=== PATIENT | male | born 1960 | race Caucasian/White ===

== ENCOUNTER 2019-11-18 12:39 | Emergency (ER) | payer MEDICAID ==
[2019-11-18] MEDS ORDERED: IPRATROPIUM/ALBUTEROL 0.5-2.5 MG/3 ML AMPUL NEB ONE ×2 (13:02→16:01)
[2019-11-18] MEDS ORDERED: PREDNISONE 20 MG TABLET PO ONE ×2 (13:02→16:38)
--- NOTE | 2019-11-18 13:27 | RADIOLOGY REPORT (SQ) ---
EXAM DESCRIPTION: CHEST SINGLE VIEW IMAGES COMPLETED DATE/TIME: 11/18/2019 1:12 pm REASON FOR STUDY: SOB COMPARISON: PA and lateral views of the chest from 10/21/2019. EXAM PARAMETERS: NUMBER OF VIEWS: One view. TECHNIQUE: An AP view of the chest was obtained. RADIATION DOSE: NA LIMITATIONS: None. FINDINGS: LUNGS AND PLEURA: No consolidation, pleural effusion or pneumothorax. MEDIASTINUM AND HILAR STRUCTURES: No mediastinal or hilar contour abnormality. HEART AND VASCULAR STRUCTURES: The cardiac silhouette and pulmonary vasculature are within normal morales its. BONES: No acute findings. HARDWARE: None in the chest. OTHER: No other finding. IMPRESSION: No acute cardiopulmonary process. TECHNICAL DOCUMENTATION: JOB ID: [id number] 2010 [employer]- All Rights Reserved Reading location - IP/workstation name: [email or web address]
[2019-11-18 13:28] LABS: ABSOLUTE BASOPHILS # (AUTO) 0.1 10^3/uL (0.0-0.2); ABSOLUTE EOSINOPHILS # (AUTO) 0.3 10^3/uL (0.0-0.6); ABSOLUTE LYMPHOCYTES (AUTO) 3.4 10^3/uL (0.5-4.7); ABSOLUTE MONOCYTES (AUTO) 1.4 10^3/uL (0.1-1.4); ABSOLUTE NEUT (AUTO) 11.6 10^3/uL (1.7-8.2); BASOPHILS % (AUTO) 0.7 % (0-2); EOSINOPHILS % (AUTO) 1.7 % (0-6); HEMATOCRIT 47.4 % (37.9-51.0); HEMOGLOBIN 15.8 g/dL (13.5-17.0); LYMPHOCYTES % (AUTO) 20.3 % (13-45); MEAN CORPUSCULAR HEMOGLOBIN 29.2 pg (27.0-33.4); MEAN CORPUSCULAR HGB CONC 33.4 g/dL (32.0-36.0); MEAN CORPUSCULAR VOLUME 88 fl (80-97); MONOCYTES % (AUTO) 8.5 % (3-13); PLATELET COUNT 512 10^3/uL (150-450); RED BLOOD COUNT 5.42 10^6/uL (4.35-5.55); RED CELL DISTRIBUTION WIDTH 14.2 % (11.5-14.0); SEGMENTED NEUTROPHILS % (AUTO) 68.8 % (42-78); TOTAL CELLS COUNTED % (AUTO) 100 %; WHITE BLOOD COUNT 16.9 10^3/uL (4.0-10.5)
[2019-11-18 13:29] LABS: ALBUMIN 4.2 g/dL (3.5-5.0); ALKALINE PHOSPHATASE 116 U/L (38-126); ANION GAP 14 (5-19); ASPARTATE AMINO TRANSFERASE 18 U/L (17-59); BILIRUBIN,DIRECT 0.3 mg/dL (0.0-0.4); BILIRUBIN,TOTAL 0.7 mg/dL (0.2-1.3); BLOOD UREA NITROGEN 15 mg/dL (7-20); CARBON DIOXIDE 22 mmol/L (22-30); CHLORIDE 99 mmol/L (98-107); CREATINE KINASE 54 U/L (55-170); GLUCOSE 89 mg/dL (75-110); POTASSIUM 4.8 mmol/L (3.6-5.0); TOTAL PROTEIN 7.3 g/dL (6.3-8.2)
[2019-11-18 13:40] LABS: CREATINE KINASE MB 0.95 ng/mL (<4.55)
[2019-11-18 13:41] LABS: TROPONIN I < 0.012 ng/mL
[2019-11-18] MEDS: ALBUTEROL SULFATE 0.083% NEB 2.5 MG/3 ML AMPUL NEB SCH (13:41)
[2019-11-18 14:10] LABS: VENOUS BLOOD BASE EXCESS -0.5 mmol/L; VENOUS BLOOD HCO3 24.2 mmol/L (20-32); VENOUS BLOOD PCO2 39.7 mmHg (35-63); VENOUS BLOOD PH 7.4 (7.30-7.42)
--- NOTE | 2019-11-18 14:14 | ER Document Report ---
Entered by SAMI STEINER SCRIBE 11/18/19 1354 Acting as scribe for:ROSA MURRAY MD ED Respiratory Problem - General Chief Complaint: Shortness Of Breath Stated Complaint: DIFFICULTY BREATHING Time Seen by Provider: 11/18/19 13:04 Primary Care Provider: FREDERICK ROSARIO FNP-C [Primary Care Provider] - 11/21/19 Mode of Arrival: Ambulatory Information source: Patient Notes: This 59-year-old male patient in pain management taking Dilaudid every 4 hours for chronic back pain presents to the emergency department today with complaints of shortness of breath for the last month which became acutely worse at 2:00 AM. Patient was recently diagnosed with COPD. He saw a pulmonology medicine doctor about 2 weeks ago follow-up and was given a nebulizer with albuterol to use, and 2 inhalers. 1 of the inhalers is a steroid that he uses twice daily. He does not know the names of the 2 inhaler medications. He was prescribed Zithromax and a 6-day Medrol Dosepak on 11/08/2019. He reports that his throat feels scratchy from the cough. He states that he does not think the inhalers or the nebulizer are really helping any. He states that the breathing treatment the EMS gave him in route helped more than the medications he has at home. He would have received a DuoNeb from EMS. He was also given fentanyl 100 mcg IV and Solu-Medrol 125 mg IV. TRAVEL OUTSIDE OF THE [place] IN LAST 30 DAYS: No - Related Data Allergies/Adverse Reactions: atorvastatin [From Lipitor] Allergy (Verified 11/18/19 15:41) "muslce and joint pain" Past Medical History - General Information source: Patient - Social History Smoking Status: Current Every Day Smoker Cigarette use (# per day): Yes Frequency of alcohol use: None Drug Abuse: None Lives with: Family Family History: Reviewed & Not Pertinent - Past Medical History Cardiac Medical History: Reports: Hx Atrial Fibrillation, Hx Congestive Heart Failure, Hx Coronary Artery Disease, Hx Heart Attack - x5, Hx Hypercholesterolemia, Hx Hypertension - hx of, Hx Heart Murmur Pulmonary Medical History: Reports: Hx COPD Neurological Medical History: Reports: Hx Cerebrovascular Accident - "during surgery" pt states "no residual" GI Medical History: Reports: Hx Diverticulitis, Hx Gastroesophageal Reflux Disease Past Surgical History: Reports: Hx Bowel Surgery, Hx Cardiac Catheterization, Hx Cardiac Surgery - PTCA 07/2012, Hx Coronary Stent - x4, Hx Orthopedic Surgery - Lumbar surgery x2 - Immunizations Immunizations up to date: Yes Hx Diphtheria, Pertussis, Tetanus Vaccination: Yes Review of Systems - Review of Systems Constitutional: No symptoms reported EENT: No symptoms reported Cardiovascular: No symptoms reported Respiratory: See HPI, Cough, Short of breath, Wheezing Gastrointestinal: No symptoms reported Genitourinary: No symptoms reported Male Genitourinary: No symptoms reported Musculoskeletal: No symptoms reported Skin: No symptoms reported Hematologic/Lymphatic: No symptoms reported Neurological/Psychological: No symptoms reported -: Yes All other systems reviewed and negative Physical Exam - Vital signs Vitals: Resp Pulse Ox 23 H 96 11/18/19 12:43 11/18/19 12:43 - Notes Notes: Physical Exam: General: Alert, appears well. HEENT: Normocephalic. Atraumatic. PERRL. Extraocular movements intact. Orop harynx clear. Neck: Supple. Non-tender. Respiratory: Mild respiratory distress. Inspiratory and expiratory wheezing bilaterally. Rhonchi. Cardiovascular: Regular rate and rhythm. Abdominal: Normal Inspection. Non-tender. No distension. Normal Bowel Sounds. Back: No gross abnormalities. Extremities: Moves all four extremities. Upper extremities: Normal inspection. Normal ROM. Lower extremities: Normal inspection. No edema. Normal ROM. Neurological: Normal cognition. AAOx4. Normal speech. Psychological: Normal affect. Normal Mood. Skin: Warm. Dry. Normal color. Course - Re-evaluation Re-evalutation: 11/18/19 16:39 The patient was sleeping with a pulse ox of 94% on room air. When awakened for reevaluation, he states that his breathing feels much better and is closer to normal at this time. 11/18/19 16:51 The charge nurse just informed me that Vitaly Stover the dialysis social worker called down and stated the patient needed a prescription for a nebulizer. Apparently when he got his prescription for his respiratory medications, he was not given a prescription for nebulizer and has been borrowing someone else's machine. I will add a prescription for a nebulizer. 11/18/19 16:56 Due to the plethora of choices for a nebulizer machine in the [facility] database, and the fact that I did not want to get multiple phone calls over the next week because the correct machine was not the one ordered, I am going to hand write the prescription for the nebulizer. - Vital Signs Vital signs: Temp Pulse Resp BP Pulse Ox 98.7 F 106 H 17 117/67 93 11/18/19 13:27 11/18/19 13:27 11/18/19 15:01 11/18/19 15:01 11/18/19 15:01 - Laboratory Result Diagrams: 11/18/19 11:58 11/18/19 11:58 Laboratory results interpreted by me: 11/18/19 11/18/19 11/18/19 11:55 11:58 11:58 WBC 16.9 H RDW 14.2 H Plt Count 512 H Absolute Neuts (auto) 11.6 H Sodium 135.0 L Magnesium 2.4 H Creatine Kinase 54 L - Diagnostic Test Radiology reviewed: Image reviewed, Reports reviewed - Chest x-ray does not show acute process. - EKG Interpretation by Me EKG shows normal: Sinus rhythm, [place], QRS Complexes, ST-T Waves. abnormal: Intervals - Short ID interval with accelerated AV conduction Rate: Normal - 98 Rhythm: NSR Discharge - Discharge Clinical Impression: COPD with exacerbation Condition: Stable Disposition: HOME, SELF-CARE Additional Instructions: Your COPD likely got worse as you came off of the steroid Dosepak you were put on last week. You report that your breathing seems to improve quite a bit with the breathing treatment the EMS gave you. That was albuterol with Atrovent mixed and. You will receive a prescription for the Atrovent to mix with your albuterol to use every 6 hours. You will also receive a prescription for prednisone, you will start that tomorrow as you have had today's dose here in the emergency room. You should drink plenty of fluids, as your urine seem to be quite concentrated. Make a list of all of your medications with the names and the doses and the frequency and put that in your cell phone so you will have it in the event you have to return to the emergency room in the future. Follow-up with your primary care provider on Thursday to review your visit today and to see how your breathing is doing over the weekend. RETURN TO THE EMERGENCY ROOM IF ANY NEW OR WORSENING SYMPTOMS. Prescriptions: Ipratropium [place] [Atrovent 0.02% Neb 0.5 mg/2.5 ml Ampul] 0.5 mg NEB Q6 PRN #50 vial.neb PRN Reason: Prednisone [Deltasone 10 mg Tablet] 10 mg PO ASDIR PRN #21 tablet PRN Reason: Referrals: FREDEIRCK ROSARIO, [facility] POURER-C [Primary Care Provider] - 11/21/19 I personally performed the services described in the documentation, reviewed and edited the documentation which was dictated to the scribe in my presence, and it accurately records my words and actions.
[2019-11-18] MEDS ORDERED: ALBUTEROL SULFATE 0.083% NEB 2.5 MG/3 ML AMPUL NEB ONE (14:23)
[2019-11-18] MEDS: MAGNESIUM SULFATE/D5W 1 GM/100 ML RTUPB IV SCH ×2 (14:38→15:46)
[2019-11-18 17:08] VITALS: BP 127/77
--- NOTE | 2019-11-19 18:59 | EKG REPORT ---
SEVERITY:- BORDERLINE ECG - SINUS RHYTHM SHORT IL INTERVAL, ACCELERATED AV CONDUCTION : Confirmed by: Christine Sullivan MD 19-Nov-2019 18:58:11
== END 2019-11-18 17:09 | disposition home or self-care (01) ==
LOC: ER 12:39
DX: J44.1 Chronic obstructive pulmonary disease with (acute) exacerbation (principal); R06.02 Shortness of breath; R05 Cough; R06.2 Wheezing; M54.9 Dorsalgia, unspecified; G89.29 Other chronic pain; Z79.899 Other long term (current) drug therapy; Z79.51 Long term (current) use of inhaled steroids; Z88.8 Allergy status to other drugs, medicaments and biological substances; F17.210 Nicotine dependence, cigarettes, uncomplicated; I48.91 Unspecified atrial fibrillation; I50.9 Heart failure, unspecified; I25.10 Atherosclerotic heart disease of native coronary artery without angina pectoris; I11.0 Hypertensive heart disease with heart failure
CPT/HCPCS: 93005; 94640 ×2; 99285; 96365; 96367; 36415; 82553; 82550; 83735; 85025; 80053; 84484; 82803; 71045; 93010; J3475; J7512; J7613

== ENCOUNTER 2019-11-29 02:04 | Inpatient (IN) | payer MEDICAID ==
[2019-11-29] MEDS ORDERED: METHYLPREDNISOLONE INJ 125 MG/2 ML SDV IV ONE (02:17)
[2019-11-29] MEDS ORDERED: IPRATROPIUM/ALBUTEROL 0.5-2.5 MG/3 ML AMPUL NEB ONE ×2 (02:17→02:21)
--- NOTE | 2019-11-29 02:26 | ER Document Report ---
ED Respiratory Problem - General Chief Complaint: Breathing Difficulty Stated Complaint: DIFFICULTY BREATHING Time Seen by Provider: 11/29/19 02:07 Notes: Patient is a 59-year-old male who comes emergency department for chief complaint of increased difficulty breathing, wheezing, and cough for the past week. Patient states he started having a lot of trouble breathing tonight, EMS states he was initially 84% on room air. Patient was placed on nonrebreather and brought to the emergency department. He has a history of COPD, he uses home ne bulizer treatments, he continues to smoke. On my evaluation patient was switched from nonrebreather to nasal cannula. Patient also tells me that he has "raw throat" and he can feel deep down his throat bleeding which he will then cough up intermittently. He denies painful or difficulty swallowing. He is on Plavix. He denies fever or sick contacts. Past medical history of atrial fibrillation, FL CAD with FL, stents, and CABG, hypertension, hyperlipidemia, and the COPD. TRAVEL OUTSIDE OF THE [place] IN LAST 30 DAYS: No - Related Data Allergies/Adverse Reactions: atorvastatin [From Lipitor] Allergy (Verified 11/18/19 15:41) "muslce and joint pain" Past Medical History - General Information source: Patient - Social History Smoking Status: Current Every Day Smoker Drug Abuse: None Lives with: Alone Family History: Reviewed & Not Pertinent - Past Medical History Cardiac Medical History: Reports: Hx Atrial Fibrillation, Hx Congestive Heart Failure, Hx Coronary Artery Disease, Hx Heart Attack - x5, Hx Hypercholesterolemia, Hx Hypertension - hx of, Hx Heart Murmur Denies: Hx Peripheral Vascular Disease Pulmonary Medical History: Reports: Hx COPD Denies: Hx Asthma, Hx Bronchitis, Hx Pneumonia Neurological Medical History: Reports: Hx Cerebrovascular Accident - "during surgery" pt states "no residual". Denies: Hx Seizures GI Medical History: Reports: Hx Diverticulitis, Hx Gastroesophageal Reflux Disease. Denies: Hx Crohn's Disease, Hx Hiatal Hernia, Hx Irritable Bowel, Hx Liver Failure, Hx Pancreatitis, Hx Ulcer Musculoskeletal Medical History: Denies Hx Arthritis, Denies Hx Fibromyalgia, Denies Hx Muscular Dystrophy Psychiatric Medical History: Denies: Hx Depression Traumatic Medical History: Denies: Hx Fractures Past Surgical History: Reports: Hx Bowel Surgery, Hx Cardiac Catheterization, Hx Cardiac Surgery - PTCA 07/2012, Hx Coronary Stent - x4, Hx Orthopedic Surgery - Lumbar surgery x2. Denies: Hx Appendectomy, Hx Cholecystectomy, Hx Colostomy, Hx Coronary Artery Bypass Graft, Hx Gastric Bypass Surgery, Hx Herniorrhaphy, Hx Pacemaker, Hx Tonsillectomy - Immunizations Immunizations up to date: Yes Hx Diphtheria, Pertussis, Tetanus Vaccination: Yes Review of Systems - Review of Systems Constitutional: No symptoms reported EENT: No symptoms reported Cardiovascular: See HPI Respiratory: See HPI Gastrointestinal: No symptoms reported Genitourinary: No symptoms reported Male Genitourinary: No symptoms reported Musculoskeletal: No symptoms reported Skin: No symptoms reported Hematologic/Lymphatic: No symptoms reported Neurological/Psychological: No symptoms reported Physical Exam - Vital signs Vitals: Pulse Ox 100 11/29/19 02:05 - Notes Notes: GENERAL: Patient is thin, disheveled, somewhat chronically ill-appearing HEAD: Normocephalic, atraumatic. EYES: Pupils equal, round, and reactive to light. Extraocular movements intact. ENT: Oral mucosa moist, tongue midline. There is a small amount of blood noted in the posterior pharynx but no active bleeding, patent airway, otherwise unre markable. Airway patent. Nares patent, sinuses non-tender, ear canals unremarkable, TM's intact. NECK: Full range of motion. Supple. Trachea midline. No lymphadenopathy. LUNGS: Expiratory wheezes throughout, decreased breath sounds bilaterally, scattered rhonchi throughout. Mild tachypnea. Speaks in full sentences. HEART: Regular rate and rhythm. No murmur ABDOMEN: Soft, non-tender. Non-distended. EXTREMITIES: Moves all 4 extremities spontaneously. No edema, normal radial and dorsalis pedis pulses bilaterally. No cyanosis. BACK: no cervical, thoracic, lumbar midline tenderness. No saddle anesthesia, normal distal neurovascular exam. Moves all extremities in full range of motion. NEUROLOGICAL: Alert and oriented x3. Normal speech. Cranial nerves II through XII grossly intact. Strength 5/5 in all extremities. PSYCH: Normal affect, normal mood. SKIN: Warm, dry, normal turgor. No rashes or lesions noted. Course - Re-evaluation Re-evalutation: On initial evaluation patient with expiratory wheezes, borderline tachypnea, and he was switched from nonrebreather to nasal cannula. Without the nasal cannula patient desaturated to about 90%. Patient is alert and oriented. No fever. Work-up pending. Giving duo nebs and Solu-Medrol for COPD exacerbation. Venous blood gas nonspecific, CBC shows leukocytosis with elevation of neutrophils but no bandemia. Chemistry nonspecific. Troponin and BNP are unremarkable. Chest x-ray showing possible left upper lobe pneumonia. Patient will be started on Rocephin and azithromycin for community-acquired pneumonia, culture sent. Because patient had blood in the posterior pharynx and an episode of hemoptysis that I noted CT of the neck and CTA were both performed to evaluate the hemoptysis. However patient did not have any additional episodes of hemoptysis despite additional coughing episodes. He is not hypotensive or in distress on reevaluation, he states he feels much better, wheezing significantly improved, respiratory rate improved. CTA showing probable bronchogenic carcinoma, pneumonia which cannot be distinguished between bacterial or COVID-19. 11/29/19 06:03 I called and spoke with Dr. Ford, oncology. His recommendation is admission to hospital service, he will consult. He states patient would need to be treated and tested for COVID-19 pneumonia before bronchoscopy could be considered and that this can be arranged afterwards. I discussed with patient in detail. Patient states understanding, states agreement with admission. 11/29/19 06:[address] Gamble, hospitalist, patient accepted to [facility] full admission. - Vital Signs Vital signs: Temp Pulse Resp BP Pulse Ox 98.7 F 16 115/78 94 11/29/19 02:09 11/29/19 04:01 11/29/19 04:00 11/29/19 05:00 - Laboratory Result Diagrams: 11/29/19 02:41 11/29/19 02:41 Laboratory results interpreted by me: 11/29/19 11/29/19 11/29/19 02:41 02:41 02:41 WBC 14.3 H RDW 14.5 H Lymph % (Auto) 9.3 L Absolute Neuts (auto) 11.8 H Seg Neutrophils % 82.5 H VBG pCO2 33.2 L Sodium 129.5 L Chloride 97 L Glucose 113 H - EKG Interpretation by Me Additional EKG results interpreted by me: EKG shows sinus rhythm at a rate of 110, QTc of 444, normal axis, no overt T wave inversions or ST segment changes in consecutive leads. Artifact present almost throughout. Discharge - Discharge Clinical Impression: COPD exacerbation, Hemoptysis, Lung mass, Hypoxia Pneumonia Qualifiers: Pneumonia type: due to unspecified organism Laterality: unspecified laterality Lung location: unspecified part of lung Qualified Code(s): J18.9 - Pneumonia, unspecified organism Condition: Stable Disposition: ADMITTED INPATIENT Admitting Provider: Mavis (Hospitalist) Unit Admitted: [facility]
[2019-11-29 02:58] LABS: ABSOLUTE BASOPHILS # (AUTO) 0.1 10^3/uL (0.0-0.2); ABSOLUTE EOSINOPHILS # (AUTO) 0.2 10^3/uL (0.0-0.6); ABSOLUTE LYMPHOCYTES (AUTO) 1.3 10^3/uL (0.5-4.7); ABSOLUTE MONOCYTES (AUTO) 0.9 10^3/uL (0.1-1.4); ABSOLUTE NEUT (AUTO) 11.8 10^3/uL (1.7-8.2); BASOPHILS % (AUTO) 0.6 % (0-2); EOSINOPHILS % (AUTO) 1.3 % (0-6); HEMATOCRIT 41.3 % (37.9-51.0); HEMOGLOBIN 14.4 g/dL (13.5-17.0); LYMPHOCYTES % (AUTO) 9.3 % (13-45); MEAN CORPUSCULAR HEMOGLOBIN 29.9 pg (27.0-33.4); MEAN CORPUSCULAR VOLUME 85 fl (80-97); MONOCYTES % (AUTO) 6.3 % (3-13); PLATELET COUNT 315 10^3/uL (150-450); RED BLOOD COUNT 4.84 10^6/uL (4.35-5.55); RED CELL DISTRIBUTION WIDTH 14.5 % (11.5-14.0); SEGMENTED NEUTROPHILS % (AUTO) 82.5 % (42-78); TOTAL CELLS COUNTED % (AUTO) 100 %; WHITE BLOOD COUNT 14.3 10^3/uL (4.0-10.5)
[2019-11-29 03:00] LABS: VENOUS BLOOD HCO3 20.7 mmol/L (20-32); VENOUS BLOOD PCO2 33.2 mmHg (35-63); VENOUS BLOOD PH 7.41 (7.30-7.42)
[2019-11-29] MEDS ORDERED: MORPHINE SULFATE 10 MG/ML INJ IV ONE (03:06)
[2019-11-29 03:14] LABS: INTERNATIONAL RATION (INR) 1.03; PROTHROMBIN TIME 13.7 SEC (11.4-15.4)
[2019-11-29 03:15] LABS: PARTIAL THROMBOPLASTIN TIME 29.2 SEC (23.5-35.8)
[2019-11-29 03:18] LABS: ALBUMIN 3.6 g/dL (3.5-5.0); ALKALINE PHOSPHATASE 101 U/L (38-126); ANION GAP 11 (5-19); ASPARTATE AMINO TRANSFERASE 22 U/L (17-59); BILIRUBIN,DIRECT 0.3 mg/dL (0.0-0.4); BILIRUBIN,TOTAL 0.5 mg/dL (0.2-1.3); BLOOD UREA NITROGEN 15 mg/dL (7-20); CALCIUM 9.4 mg/dL (8.4-10.2); CARBON DIOXIDE 22 mmol/L (22-30); CHLORIDE 97 mmol/L (98-107); GLUCOSE 113 mg/dL (75-110); POTASSIUM 4.6 mmol/L (3.6-5.0); TOTAL PROTEIN 6.6 g/dL (6.3-8.2)
--- NOTE | 2019-11-29 03:47 | RADIOLOGY REPORT (SQ) ---
CLINICAL INDICATION: shortness of breath, hypoxia. TECHNIQUE: A single portable AP view was obtained of the chest at 0325 hours. COMPARISON: November 18, 2019. FINDINGS: The cardiomediastinal silhouette is normal. The lungs demonstrate chronic changes. These are similar to prior. Mariah fullness, similar to prior. No evidence of effusion or pneumothorax. The visualized bones are unremarkable. Ill-defined patchy opacity left upper lobe IMPRESSION: Ill-defined patchy airspace disease left upper lobe.
[2019-11-29] MEDS ORDERED: AZITHROMYCIN INJ 500 MG VIAL IV ONE (03:52)
[2019-11-29] MEDS ORDERED: CEFTRIAXONE 1 GM/D5W RTU 1 GM/50 ML RTUPB IV ONE (03:52)
--- NOTE | 2019-11-29 04:57 | RADIOLOGY REPORT (SQ) ---
CT angiogram chest with contrast and CT neck with contrast on 11/29/2019 at 4:11 AM CLINICAL INDICATION: Hypoxia, hemoptysis, throat fullness, question mass or bleeding from throat TECHNIQUE: Multiple axial images are obtained throughout the neck and chest following the administration of IV contrast. 100 mL of Omnipaque 350 contrast was administered intravenously. Computer generated 3D reconstructions/MIPS were performed of the chest. This exam was performed according to our departmental dose-optimization program, which includes automated exposure control, adjustment of the mA and/or kV according to patient size and/or use of iterative reconstruction technique. Total DLP is 1225.33 mGy*cm. COMPARISON: None FINDINGS: NECK: The epiglottis and airway is unremarkable. There is no prevertebral soft tissue swelling. There is no adenopathy in the neck. No mucosal lesion is noted. No neck mass or fluid collection is noted. Degenerative changes are noted in the cervical spine. No acute bony abnormality is noted. CHEST: There is central left upper lobe mass that is confluent with left hilar and mediastinal soft tissue density consistent with primary bronchogenic carcinoma. There is also confluent adenopathy surrounding the artur and right mainstem bronchus and involving the subcarinal region consistent with tumor involvement. This appears nearly confluent with the left hilar abnormality. This raises the question of a small cell lung cancer as the primary malignancy. At one level confluent subcarinal mass/adenopathy measures approximately 6.1 x 5.7 cm. Soft tissue tumor surrounds and narrows the right upper lobe bronchus and the bronchus intermedius and also the central right middle and right lower bronchi. There are some tree-in-bud nodular opacities in the right lower lobe consistent with either aspiration or an infectious bronchiolitis. There is some crazy paving in the left lower lobe. This is likely postinfectious in nature and raises the question of viral etiology. There are some nodular opacities in the left upper lung that name be infectious or malignant. Emphysematous changes of the lungs are noted. The central soft tissue tumor surrounds and somewhat narrows the right main pulmonary artery and partially surrounds the left pulmonary artery without narrowing the left pulmonary artery. There are no filling defects within the pulmonary arteries to suggest pulmonary embolus. Tumor significantly narrows the right upper lobe pulmonary arterial tree. There is no pleural or pericardial effusion. Limited visualized upper abdomen is unremarkable. No acute bony abnormality is noted. IMPRESSION: 1. 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 For tissue diagnosis bronchoscopy could likely obtain tissue on the right. 2. No evidence of pulmonary embolus. 3. Evidence of some likely aspiration in the medial right lower lobe. 4. Evidence of likely infectious etiology in the left lung and this could be viral in nature. Imaging features can be seen with viral or COVID 19 pneumonia, though are nonspecific and can occur with a variety of infectious and noninfectious processes. [PneInd] 5. No acute abnormality in the neck. 6. CHUCKIE Kumari in the emergency department, was made aware of impression one and four by myself by phone on 11/29/2019 at 4:55 AM eastern time.
--- NOTE | 2019-11-29 08:25 | PDOC CONSULTATION ---
Consultation Consult Date: 11/29/19 Attending physician:: NAI RECINOS Provider Consulted: MARILEE VILLAGRAN Consult reason:: L central lung mass History of Present Illness Admission Date/PCP: 11/29/19 06:46 JAMIE JIMENEZ Patient complains of: SOB/GUAMAN/Cough History of Present Illness: Because of COVID restrictions, this is a telemedicine consultation, the patient was appropriately counseled on what this consultation entails and what follow-up will occur. AGAPITO MANZO is a 59 year old male with newly diagnosed lung mass. He presents with 1 to 2-week history of increasing shortness of breath, dyspnea on exertion, he has known history of COPD, also strong smoking history greater than [id number], actively smoking prior to coming in. Upon presentation, patient had CTA of the chest which indicates large left central/left upper lobe mass, but also areas in the left lung concerning for pneumonia, because of the appear ance COVID was considered and he is being ruled out for this. He is having some hemoptysis as well. Past Medical History Cardiac Medical History: Reports: Atrial Fibrillation, Congestive Heart Failure, Coronary Artery Disease, Myocardial Infarction - x5, Hyperlipidema, Hypertension - hx of, Heart Murmur Denies: Peripheral Vascular Disease Pulmonary Medical History: Reports: Chronic Obstructive Pulmonary Disease (COPD) Denies: Asthma, Bronchitis, Pneumonia Neurological Medical History: Denies: Seizures GI Medical History: Reports: Diverticulitis, Gastroesophageal Reflux Disease Denies: Crohn's Disease, Hiatal Hernia Musculoskeltal Medical History: Denies: Arthritis, Fibromyalgia Psychiatric Medical History: Denies: Depression Hematology: Denies: Anemia Past Surgical History Past Surgical History: Reports: Cardiac Catheterization, Coronary Stent - x4, Orthopedic Surgery - Lumbar surgery x2 Denies: Appendectomy, Cholecystectomy, Colostomy, Coronary Artery Bypass Graft, Gastric Bypass Surgery, Herniorrhaphy, Pacemaker, Tonsillectomy Social History Information Source: Patient Lives with: Alone Smoking Status: Current Every Day Smoker Frequency of Alcohol Use: None Hx Recreational Drug Use: No Drugs: None Hx Prescription Drug Abuse: No - Advance Directive Resuscitation Status: Full Code Family History Family History: Reviewed & Not Pertinent Parental Family History Reviewed: Yes Children Family History Reviewed: Yes Sibling(s) Family History Reviewed.: Yes Medication/Allergy Home Medications: Nitroglycerin [Nitrostat 0.4 mg (150 Gr) Tabs 25/Bottle] 1 tab SL Q5MP PRN 08/23/12 Oxycodone HCl [Oxy-Ir 5 mg Tablet] 15 mg PO Q4 PRN 08/14/15 Clopidogrel Bisulfate [Plavix 75 mg Tablet] 1 tab PO DAILY 11/01/15 Oxycodone HCl/Acetaminophen [Percocet 5-325 mg Tablet] 1 - 2 tab PO ASDIR PRN #25 tablet 11/05/15 Ipratropium [place] [Atrovent 0.02% Neb 0.5 mg/2.5 ml Ampul] 0.5 mg NEB Q6 PRN #50 vial.neb 11/18/19 Prednisone [Deltasone 10 mg Tablet] 10 mg PO ASDIR PRN #21 tablet 11/18/19 Allergies/Adverse Reactions: atorvastatin [From Lipitor] Allergy (Verified 11/18/19 15:41) "muslce and joint pain" Review of Systems Constitutional: ABSENT: chills, fever(s), headache(s), weight gain, weight loss Eyes: ABSENT: visual disturbances Ears: ABSENT: hearing changes Cardiovascular: ABSENT: chest pain, dyspnea on exertion, edema, orthropnea, palpitations Respiratory: ABSENT: cough, hemoptysis Gastrointestinal: ABSENT: abdominal pain, constipation, diarrhea, hematemesis, hematochezia, nausea, vomiting Genitourinary: ABSENT: dysuria, hematuria Musculoskeletal: ABSENT: joint swelling Integumentary: ABSENT: rash, wounds Neurological: ABSENT: abnormal gait, abnormal speech, confusion, dizziness, focal weakness, syncope Psychiatric: ABSENT: anxiety, depression, homidical ideation, suicidal ideation Endocrine: ABSENT: cold intolerance, heat intolerance, polydipsia, polyuria Hematologic/Lymphatic: ABSENT: easy bleeding, easy bruising Physical Exam Vital Signs: Temp Pulse Resp BP Pulse Ox 98.7 F 12 133/95 H 96 11/29/19 02:09 11/29/19 07:01 11/29/19 07:01 11/29/19 07:01 Intake & Output 11/28/19 11/29/19 11/30/19 06:59 06:59 06:59 Intake Total 50 Balance 50 Weight 81.647 kg General appearance: PRESENT: no acute distress, well-developed, well-nourished Head exam: PRESENT: atraumatic, normocephalic Eye exam: PRESENT: conjunctiva pink, EOMI, PERRLA. ABSENT: scleral icterus Ear exam: PRESENT: normal external ear exam Mouth exam: PRESENT: moist, tongue midline Neck exam: ABSENT: carotid bruit, JVD, lymphadenopathy, thyromegaly Respiratory exam: PRESENT: clear to auscultation mike. ABSENT: rales, rhonchi, wheezes Cardiovascular exam: PRESENT: RRR. ABSENT: diastolic murmur, rubs, systolic murmur Pulses: PRESENT: normal dorsalis pedis pul Vascular exam: PRESENT: normal capillary refill GI/Abdominal exam: PRESENT: normal bowel sounds, soft. ABSENT: distended, guarding, mass, organolmegaly, rebound, tenderness Rectal exam: PRESENT: deferred Extremities exam: PRESENT: full ROM. ABSENT: calf tenderness, clubbing, pedal edema Neurological exam: PRESENT: alert, awake, oriented to person, oriented to place, oriented to time, oriented to situation, CN II-XII grossly intact. ABSENT: motor sensory deficit Psychiatric exam: PRESENT: appropriate affect, normal mood. ABSENT: homicidal ideation, suicidal ideation Skin exam: PRESENT: dry, intact, warm. ABSENT: cyanosis, rash Results Laboratory Results: 11/29/19 02:41 11/29/19 02:41 11/29/19 11/29/19 11/29/19 02:41 02:41 02:41 WBC 14.3 H RBC 4.84 Hgb 14.4 Hct 41.3 MCV 85 MCH 29.9 MCHC 35.0 RDW 14.5 H Plt Count 315 Seg Neutrophils % 82.5 H VBG pH 7.41 VBG pCO2 33.2 L VBG HCO3 20.7 VBG Base Excess -3.0 Sodium 129.5 L Potassium 4.6 Chloride 97 L Carbon Dioxide 22 Anion Gap 11 BUN 15 Creatinine 0.75 Est GFR ( Amer) > 60 Glucose 113 H Calcium 9.4 Total Bilirubin 0.5 AST 22 Alkaline Phosphatase 101 Total Protein 6.6 Albumin 3.6 11/29/19 02:41 Troponin I 0.015 Impressions: Chest X-Ray 11/29/19 02:17 IMPRESSION: Ill-defined patchy airspace disease left upper lobe. Soft Tissue Neck CT 11/29/19 03:49 IMPRESSION: 1. 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 For tissue diagnosis bronchoscopy could likely obtain tissue on the right. 2. No evidence of pulmonary embolus. 3. Evidence of some likely aspiration in the medial right lower lobe. 4. Evidence of likely infectious etiology in the left lung and this could be viral in nature. Imaging features can be seen with viral or COVID 19 pneumonia, though are nonspecific and can occur with a variety of infectious and noninfectious processes. [PneInd] 5. No acute abnormality in the neck. 6. CHUCKIE Kumari in the emergency department, was made aware of impression one and four by myself by phone on 11/29/2019 at 4:55 AM eastern time. Chest/Abdomen CTA 11/29/19 03:50 IMPRESSION: 1. 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 For tissue diagnosis bronchoscopy could likely obtain tissue on the right. 2. No evidence of pulmonary embolus. 3. Evidence of some likely aspiration in the medial right lower lobe. 4. Evidence of likely infectious etiology in the left lung and this could be viral in nature. Imaging features can be seen with viral or COVID 19 pneumonia, though are nonspecific and can occur with a variety of infectious and noninfectious processes. [PneInd] 5. No acute abnormality in the neck. 6. CHUCKEI Kumari in the emergency department, was made aware of impression one and four by myself by phone on 11/29/2019 at 4:55 AM eastern time. Status: Image reviewed by me Assessment & Plan - Diagnosis (1) Lung mass Is this a current diagnosis for this admission?: Yes Plan: Concerning for primary lung cancer, I have discussed with the patient and appropriately counseled him that first COVID needs to be ruled out. Once that is ruled out and patient get several days of IV antibiotics, and clinically he is stable, he should discharge home and we will see him as an outpatient and set up outpatient bronchoscopy in [place]. He is agreeable to this approach. We will follow while admitted. - Time Time Spent: Greater than 70 Minutes - Inpatient Certification Based on my medical assessment, after consideration of the patient's comorbidities, presenting symptoms, or acuity I expect that the services needed warrant INPATIENT care.: Yes I certify that my determination is in accordance with my understanding of Medicare's requirements for reasonable and necessary INPATIENT services [42 CFR 412.3e].: Yes Medical Necessity: Need for Nebulizer Therapy and Monitoring of Response, Need for IV Antibiotics, Risk of Complication if Not Cared For in Hospital
--- NOTE | 2019-11-29 08:48 | EKG REPORT ---
SEVERITY:- ABNORMAL ECG - SINUS TACHYCARDIA BASELINE ARTEFACT : Confirmed by: Zeus Zambrano MD 29-Nov-2019 08:47:36
[2019-11-29] MEDS ORDERED: ACETAMINOPHEN 325 MG TABLET PO PRN (09:08)
[2019-11-29] MEDS ORDERED: ONDANSETRON HCL INJ/PF 4 MG/2 ML SDV IV PRN (09:08)
[2019-11-29] MEDS ORDERED: NICOTINE 21 MG/24 HR PATCH.TD24 TD PRN (09:25)
--- NOTE | 2019-11-29 09:25 | PDOC H&P ---
History of Present Illness Admission Date/PCP: 11/29/19 06:46 FREDERICK ROSARIO, EMETERIO-C Patient complains of: Shortness of breath for 1 week History of Present Illness: AGAPITO MANZO is a 59 year old male with history of COPD, chronic smoker, history of heart attack with multiple stents came to the emergency room with complaint of increasing shortness of breath. Work-up in the emergency room indicates left-sided pneumonia and also possible left upper middle lobe carcinoma. Consultation with oncology was done. Coronavirus testing is pending. Patient denies any fever denies any chills. Complains of dry cough. Wants to be a full code agreed to stay in the hospital for further management. Past Medical History Cardiac Medical History: Reports: Atrial Fibrillation, Congestive Heart Failure, Coronary Artery Disease, Myocardial Infarction - x5, Hyperlipidema, Hypertension - hx of, Heart Murmur Denies: Peripheral Vascular Disease Pulmonary Medical History: Reports: Chronic Obstructive Pulmonary Disease (COPD) Denies: Asthma, Bronchitis, Pneumonia Neurological Medical History: Denies: Seizures GI Medical History: Reports: Diverticulitis, Gastroesophageal Reflux Disease Denies: Crohn's Disease, Hiatal Hernia Musculoskeltal Medical History: Denies: Arthritis, Fibromyalgia Psychiatric Medical History: Denies: Depression Hematology: Denies: Anemia Past Surgical History Past Surgical History: Reports: Cardiac Catheterization, Coronary Stent - x4, Orthopedic Surgery - Lumbar surgery x2 Denies: Appendectomy, Cholecystectomy, Colostomy, Coronary Artery Bypass Graft, Gastric Bypass Surgery, Herniorrhaphy, Pacemaker, Tonsillectomy Social History Information Source: Patient Lives with: Alone Smoking Status: Current Every Day Smoker Frequency of Alcohol Use: None Hx Recreational Drug Use: No Drugs: None Hx Prescription Drug Abuse: No Family History Family History: Reviewed & Not Pertinent Parental Family History Reviewed: Yes Children Family History Reviewed: Yes Sibling(s) Family History Reviewed.: Yes Medication/Allergy Home Medications: Nitroglycerin [Nitrostat 0.4 mg (1/150 Gr) Tabs 25/Bottle] 1 tab SL Q5MP PRN 08/23/12 Oxycodone HCl [Oxy-Ir 5 mg Tablet] 15 mg PO Q4 PRN 08/14/15 Clopidogrel Bisulfate [Plavix 75 mg Tablet] 1 tab PO DAILY 11/01/15 Oxycodone HCl/Acetaminophen [Percocet 5-325 mg Tablet] 1 - 2 tab PO ASDIR PRN #25 tablet 11/05/15 Ipratropium [place] [Atrovent 0.02% Neb 0.5 mg/2.5 ml Ampul] 0.5 mg NEB Q6 PRN #50 vial.neb 11/18/19 Prednisone [Deltasone 10 mg Tablet] 10 mg PO ASDIR PRN #21 tablet 11/18/19 Allergies/Adverse Reactions: atorvastatin [From Lipitor] Allergy (Verified 11/18/19 15:41) "muslce and joint pain" Review of Systems Constitutional: PRESENT: fatigue, weakness. ABSENT: fever(s), headache(s), night sweats Eyes: ABSENT: visual disturbances Ears: ABSENT: hearing changes Nose, Mouth, and Throat: ABSENT: sore throat Cardiovascular: ABSENT: palpitations Respiratory: PRESENT: cough, dyspnea Gastrointestinal: ABSENT: constipation, heartburn, hematemesis, hematochezia Genitourinary: ABSENT: hematuria Musculoskeletal: ABSENT: deformity, joint swelling Neurological: ABSENT: abnormal gait, abnormal speech, confusion, dizziness, focal weakness, syncope Psychiatric: ABSENT: anxiety, depression, homidical ideation, suicidal ideation Physical Exam Vital Signs: Temp Pulse Resp BP Pulse Ox 98.4 F 13 121/85 96 11/29/19 09:00 11/29/19 09:00 11/29/19 08:01 11/29/19 09:00 Intake & Output 11/28/19 11/29/19 11/30/19 06:59 06:59 06:59 Intake Total 50 Balance 50 Weight 81.647 kg General appearance: PRESENT: no acute distress, well-developed Head exam: PRESENT: atraumatic Eye exam: PRESENT: PERRLA Ear exam: PRESENT: normal external ear exam Mouth exam: PRESENT: neck supple Neck exam: ABSENT: carotid bruit, JVD, lymphadenopathy, thyromegaly Respiratory exam: PRESENT: decreased breath sounds, wheezes Cardiovascular exam: PRESENT: systolic murmur GI/Abdominal exam: PRESENT: normal bowel sounds, soft. ABSENT: distended, guarding, mass, organolmegaly, rebound, tenderness Rectal exam: PRESENT: deferred Extremities exam: PRESENT: full ROM. ABSENT: calf tenderness, clubbing, pedal edema Neurological exam: PRESENT: alert, awake, oriented to person, oriented to place, oriented to time, oriented to situation, CN II-XII grossly intact. ABSENT: motor sensory deficit Psychiatric exam: PRESENT: appropriate affect, normal mood. ABSENT: homicidal ideation, suicidal ideation Results Laboratory Results: 11/29/19 02:41 11/29/19 02:41 11/29/19 11/29/19 11/29/19 02:41 02:41 02:41 WBC 14.3 H RBC 4.84 Hgb 14.4 Hct 41.3 MCV 85 MCH 29.9 MCHC 35.0 RDW 14.5 H Plt Count 315 Seg Neutrophils % 82.5 H VBG pH 7.41 VBG pCO2 33.2 L VBG HCO3 20.7 VBG Base Excess -3.0 Sodium 129.5 L Potassium 4.6 Chloride 97 L Carbon Dioxide 22 Anion Gap 11 BUN 15 Creatinine 0.75 Est GFR ( Amer) > 60 Glucose 113 H Calcium 9.4 Total Bilirubin 0.5 AST 22 Alkaline Phosphatase 101 Total Protein 6.6 Albumin 3.6 11/29/19 02:41 Troponin I 0.015 Impressions: Chest X-Ray 11/29/19 02:17 IMPRESSION: Ill-defined patchy airspace disease left upper lobe. Soft Tissue Neck CT 11/29/19 03:49 IMPRESSION: 1. 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 For tissue diagnosis bronchoscopy could likely obtain tissue on the right. 2. No evidence of pulmonary embolus. 3. Evidence of some likely aspiration in the medial right lower lobe. 4. Evidence of likely infectious etiology in the left lung and this could be viral in nature. Imaging features can be seen with viral or COVID 19 pneumonia, though are nonspecific and can occur with a variety of infectious and noninfectious processes. [PneInd] 5. No acute abnormality in the neck. 6. CHUCKIE Kumari in the emergency department, was made aware of impression one and four by myself by phone on 11/29/2019 at 4:55 AM eastern time. Chest/Abdomen CTA 11/29/19 03:50 IMPRESSION: 1. 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 For tissue diagnosis bronchoscopy could likely obtain tissue on the right. 2. No evidence of pulmonary embolus. 3. Evidence of some likely aspiration in the medial right lower lobe. 4. Evidence of likely infectious etiology in the left lung and this could be viral in nature. Imaging features can be seen with viral or COVID 19 pneumonia, though are nonspecific and can occur with a variety of infectious and noninfectious processes. [PneInd] 5. No acute abnormality in the neck. 6. CHUCKIE Kumari in the emergency department, was made aware of impression one and four by myself by phone on 11/29/2019 at 4:55 AM eastern time. Assessment and Plan - Diagnosis (1) COPD exacerbation Is this a current diagnosis for this admission?: Yes Plan: 11/29/2019-patient is going to be admitted to [facility] as inpatient for COPD exacerbation. Started on IV Rocephin, IV Zithromax. Coronavirus testing is pending. Continue albuterol nebulizations. Provide nicotine patch. GI prophylaxis DVT prophylaxis needed. To start him on IV Solu-Medrol. Patient is not on home oxygen. Provide oxygen supplementations. (2) Pneumonia Qualifiers: Pneumonia type: due to unspecified organism Laterality: unspecified laterality Lung location: unspecified part of lung Qualified Code(s): J18.9 - Pneumonia, unspecified organism Is this a current diagnosis for this admission?: Yes Plan: 11/29/19-patient admitted with community-acquired pneumonia. Sputum cultures blood cultures are requested started on IV Rocephin and Zithromax. Coronavirus testing is pending. (3) Coronary artery disease Qualifiers: Coronary Disease-Associated Artery/Lesion type: [place] artery Associated angina: with unspecified angina Is this a current diagnosis for this admission?: No Plan: 11/29/2019-patient is given the history of coronary artery disease status post juvenal nt placements. Denies any chest pains at the time of admission (4) Lung mass Is this a current diagnosis for this admission?: Yes Plan: 11/29/2019-CT scan of the chest suggestive of bronchogenic carcinoma involving the left upper and middle lobe. Consultation with Dr. Ford is requested. (5) Tobacco abuse Is this a current diagnosis for this admission?: No Plan: 11/29/2019-patient has history of chronic smoking for more than 50 years. Smoking consult was provided to start him on nicotine patch 21 mcg daily. (6) COVID-19 Is this a current diagnosis for this admission?: Yes Plan: 11/29/2019-patient came in with complaints of shortness of breath associated with fatigue and weakness coronavirus testing is pending. - Time Anticipated Discharge Disposition: Home, Self Care Anticipated Discharge Timeframe: within 72 hours
[2019-11-29] MEDS ORDERED: AZITHROMYCIN INJ 500 MG VIAL IV SCH (10:00)
[2019-11-29] MEDS: FAMOTIDINE 20 MG TABLET PO SCH (10:47)
[2019-11-29] MEDS: DOCUSATE SODIUM 100 MG CAPSULE PO SCH ×2 (10:47→18:06)
[2019-11-29] MEDS: IPRATROPIUM/ALBUTEROL 0.5-2.5 MG/3 ML AMPUL NEB PRN (10:47)
[2019-11-29] MEDS: ENOXAPARIN SODIUM INJ 40 MG/0.4 ML DISP.SYRIN SUBCUT SCH (10:48)
[2019-11-29] MEDS: ALBUTEROL SULFATE 0.083% NEB 2.5 MG/3 ML AMPUL NEB SCH ×2 (15:01→20:25)
[2019-11-29] MEDS ORDERED: IPRATROPIUM BROMIDE IH SCH (18:00)
[2019-11-29] MEDS ORDERED: (PENDING PHARMACY ID) (Glycopyrrolate/Formoterol Fum [Bevespi Aerosphere Inhaler] 2 PUFF) IH SCH (18:00)
[2019-11-29] MEDS: HYDROMORPHONE HCL 2 MG TABLET PO SCH ×2 (18:06→21:15)
[2019-11-29] MEDS: METHYLPREDNISOLONE INJ 40 MG/1 ML SDV IV SCH ×2 (18:08→21:11)
[2019-11-29] MEDS: NORMAL SALINE 1000 ML 1,000 ML IV PRN (19:00)
[2019-11-29] MEDS: METOPROLOL TARTRATE PF/INJ 5 MG/5 ML SDV IV PRN (19:20)
[2019-11-30] MEDS: FAMOTIDINE 20 MG TABLET PO SCH ×3 (00:21→21:07)
[2019-11-30] MEDS: HYDROMORPHONE HCL 2 MG TABLET PO SCH ×6 (01:25→21:07)
[2019-11-30] MEDS: ALBUTEROL SULFATE 0.083% NEB 2.5 MG/3 ML AMPUL NEB SCH ×4 (02:35→20:29)
[2019-11-30] MEDS: METHYLPREDNISOLONE INJ 40 MG/1 ML SDV IV SCH ×3 (05:26→21:07)
[2019-11-30] MEDS: CEFTRIAXONE 1 GM/D5W RTU 1 GM/50 ML RTUPB IV SCH (05:27)
[2019-11-30] MEDS: NORMAL SALINE 1000 ML 1,000 ML IV PRN ×2 (05:42→21:08)
[2019-11-30 06:01] LABS: ABSOLUTE MONOCYTES (AUTO) 0.8 10^3/uL (0.1-1.4); ABSOLUTE NEUT (AUTO) 15.4 10^3/uL (1.7-8.2); BASOPHILS % (AUTO) 0.1 % (0-2); HEMATOCRIT 39.5 % (37.9-51.0); HEMOGLOBIN 13.6 g/dL (13.5-17.0); LYMPHOCYTES % (AUTO) 5.7 % (13-45); MEAN CORPUSCULAR HEMOGLOBIN 29.9 pg (27.0-33.4); MEAN CORPUSCULAR HGB CONC 34.4 g/dL (32.0-36.0); MEAN CORPUSCULAR VOLUME 87 fl (80-97); MONOCYTES % (AUTO) 4.6 % (3-13); PLATELET COUNT 337 10^3/uL (150-450); RED BLOOD COUNT 4.55 10^6/uL (4.35-5.55); RED CELL DISTRIBUTION WIDTH 14.2 % (11.5-14.0); SEGMENTED NEUTROPHILS % (AUTO) 89.6 % (42-78); TOTAL CELLS COUNTED % (AUTO) 100 %; WHITE BLOOD COUNT 17.2 10^3/uL (4.0-10.5)
[2019-11-30 06:24] LABS: ALBUMIN 3.4 g/dL (3.5-5.0); ALKALINE PHOSPHATASE 75 U/L (38-126); ANION GAP 10 (5-19); ASPARTATE AMINO TRANSFERASE 21 U/L (17-59); BILIRUBIN,DIRECT 0.4 mg/dL (0.0-0.4); BILIRUBIN,TOTAL 0.5 mg/dL (0.2-1.3); BLOOD UREA NITROGEN 15 mg/dL (7-20); CALCIUM 9.7 mg/dL (8.4-10.2); CARBON DIOXIDE 23 mmol/L (22-30); CHLORIDE 100 mmol/L (98-107); CHOLESTEROL 169.95 mg/dL (0-200); GLUCOSE 128 mg/dL (75-110); TOTAL PROTEIN 5.9 g/dL (6.3-8.2); TRIGLYCERIDES 86 mg/dL (<150)
[2019-11-30 06:35] LABS: DIRECT LDL 120 mg/dL (<100)
--- NOTE | 2019-11-30 08:43 | PDOC PROGRESS REPORT ---
Subjective Progress Note for:: 11/30/19 Subjective:: Patient doing better today, feeling better today. Today had a long discussion about his current status of disease and next steps of care in terms of the lung lesion. Spent 45 minutes in discussion. Reason For Visit: PNEUMONIA Physical Exam Vital Signs: Temp Pulse Resp BP Pulse Ox 97.6 F 103 H 16 132/67 H 94 11/30/19 00:52 11/30/19 02:35 11/30/19 02:35 11/30/19 00:52 11/30/19 02:35 Intake & Output 11/29/19 11/30/19 12/01/19 06:59 06:59 06:59 Intake Total 50 853 Output Total 700 Balance 50 153 Weight 81.647 kg 79.6 kg General appearance: PRESENT: no acute distress, well-developed, well-nourished Head exam: PRESENT: atraumatic, normocephalic Eye exam: PRESENT: conjunctiva pink, EOMI, PERRLA. ABSENT: scleral icterus Ear exam: PRESENT: normal external ear exam Mouth exam: PRESENT: moist, tongue midline Neck exam: ABSENT: carotid bruit, JVD, lymphadenopathy, thyromegaly Respiratory exam: PRESENT: clear to auscultation mike. ABSENT: rales, rhonchi, wheezes Cardiovascular exam: PRESENT: RRR. ABSENT: diastolic murmur, rubs, systolic murmur Pulses: PRESENT: normal dorsalis pedis pul Vascular exam: PRESENT: normal capillary refill GI/Abdominal exam: PRESENT: normal bowel sounds, soft. ABSENT: distended, guarding, mass, organolmegaly, rebound, tenderness Rectal exam: PRESENT: deferred Extremities exam: PRESENT: full ROM. ABSENT: calf tenderness, clubbing, pedal edema Neurological exam: PRESENT: alert, awake, oriented to person, oriented to place, oriented to time, oriented to situation, CN II-XII grossly intact. ABSENT: motor sensory deficit Psychiatric exam: PRESENT: appropriate affect, normal mood. ABSENT: homicidal ideation, suicidal ideation Skin exam: PRESENT: dry, intact, warm. ABSENT: cyanosis, rash Results Laboratory Results: 11/30/19 05:26 11/30/19 05:26 11/30/19 11/30/19 11/30/19 05:26 05:26 05:26 WBC 17.2 H RBC 4.55 Hgb 13.6 Hct 39.5 MCV 87 MCH 29.9 MCHC 34.4 RDW 14.2 H Plt Count 337 Seg Neutrophils % 89.6 H Sodium 132.8 L Potassium 5.0 Chloride 100 Carbon Dioxide 23 Anion Gap 10 BUN 15 Creatinine 0.58 Est GFR ( Amer) > 60 Glucose 128 H Calcium 9.7 Magnesium 2.2 Total Bilirubin 0.5 AST 21 Alkaline Phosphatase 75 Total Protein 5.9 L Albumin 3.4 L Triglycerides 86 Cholesterol 169.95 LDL Cholesterol Direct 120 H VLDL Cholesterol 17.0 HDL Cholesterol 39 L TSH 0.58 11/29/19 11/29/19 11/29/19 02:41 10:20 10:20 Creatine Kinase 45 L Troponin I 0.015 0.018 11/29/19 11/29/19 11/29/19 15:09 15:09 21:46 Creatine Kinase 53 L 42 L Troponin I 0.012 11/29/19 21:46 Creatine Kinase Troponin I < 0.012 Impressions: Chest X-Ray 11/29/19 02:17 IMPRESSION: Ill-defined patchy airspace disease left upper lobe. Soft Tissue Neck CT 11/29/19 03:49 IMPRESSION: 1. 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 For tissue diagnosis bronchoscopy could likely obtain tissue on the right. 2. No evidence of pulmonary embolus. 3. Evidence of some likely aspiration in the medial right lower lobe. 4. Evidence of likely infectious etiology in the left lung and this could be viral in nature. Imaging features can be seen with viral or COVID 19 pneumonia, though are nonspecific and can occur with a variety of infectious and noninfectious processes. [PneInd] 5. No acute abnormality in the neck. 6. CHUCKIE Kumari in the emergency department, was made aware of impression one and four by myself by phone on 11/29/2019 at 4:55 AM eastern time. Chest/Abdomen CTA 11/29/19 03:50 IMPRESSION: 1. 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 For tissue diagnosis bronchoscopy could likely obtain tissue on the right. 2. No evidence of pulmonary embolus. 3. Evidence of some likely aspiration in the medial right lower lobe. 4. Evidence of likely infectious etiology in the left lung and this could be viral in nature. Imaging features can be seen with viral or COVID 19 pneumonia, though are nonspecific and can occur with a variety of infectious and noninfectious processes. [PneInd] 5. No acute abnormality in the neck. 6. CHUCKIE Kumari in the emergency department, was made aware of impression one and four by myself by phone on 11/29/2019 at 4:55 AM eastern time. Assessment & Plan - Diagnosis (1) Lung mass Is this a current diagnosis for this admission?: Yes Plan: Continue with IV antibiotic, will probably remain in-house for 1-2 more days because of the complicated pneumonia, also is in A. fib so cardiology will need to be discussed on appropriate management of that. Ultimately within 1 to 2 weeks of discharge would like to get him up to [place] for bronchoscopy and biopsy. - Time Time Spent with patient: 35 or more minutes
--- NOTE | 2019-11-30 09:37 | EKG REPORT ---
SEVERITY:- ABNORMAL ECG - SINUS TACHYCARDIA NONSPECIFIC T ABNORMALITIES, DIFFUSE LEADS : Confirmed by: Zeus Zambrano MD 30-Nov-2019 09:36:02
[2019-11-30] MEDS: LISINOPRIL 10 MG TABLET PO SCH (09:53)
[2019-11-30] MEDS: DOCUSATE SODIUM 100 MG CAPSULE PO SCH ×2 (09:53→18:37)
[2019-11-30] MEDS: ENOXAPARIN SODIUM INJ 40 MG/0.4 ML DISP.SYRIN SUBCUT SCH (09:54)
[2019-11-30] MEDS ORDERED: CLOPIDOGREL BISULFATE 75 MG TABLET PO SCH (10:00)
[2019-11-30] MEDS: AZITHROMYCIN 500 MG in DEXTROSE 5%-WATER 250 ML IV SCH (10:00)
--- NOTE | 2019-11-30 10:34 | PDOC PROGRESS REPORT ---
Subjective Progress Note for:: 11/30/19 Subjective:: 59 year old male with history of COPD, chronic smoker, history of heart attack with multiple stents came to the emergency room with complaint of increasing shortness of breath. Work-up in the emergency room indicates left-sided pneumonia and also possible left upper middle lobe carcinoma. Consultation with oncology was done. Coronavirus testing is pending. Patient denies any fever denies any chills. Complains of dry cough. Wants to be a full code agreed to stay in the hospital for further management. 11/30/[id number]ag[age]-old male with history of COPD not on home oxygen, chronic smoker history of coronary artery disease with multiple stent placements admitted with COPD exacerbation and right-sided pneumonia. CT scan suggestive of lung cancer oncology consult was done. Patient is doing well his heart rate went up to 130s 140s since last night. Discussed he case with Dr. Howell he recommended to give a 0.25 mg IV digoxin at this time. Patient is comfortably in the bed communicating well. Not in distress. Reason For Visit: PNEUMONIA Physical Exam Vital Signs: Temp Pulse Resp BP Pulse Ox 97.6 F 112 H 18 132/67 H 93 11/30/19 00:52 11/30/19 08:35 11/30/19 08:35 11/30/19 00:52 11/30/19 08:35 Intake & Output 11/29/19 11/30/19 12/01/19 06:59 06:59 06:59 Intake Total 50 853 Output Total 700 Balance 50 153 Weight 81.647 kg 79.6 kg General appearance: PRESENT: no acute distress, cooperative, well-developed Head exam: PRESENT: atraumatic Eye exam: PRESENT: PERRLA Mouth exam: PRESENT: moist, tongue midline Teeth exam: PRESENT: poor dentation Neck exam: ABSENT: carotid bruit, JVD, lymphadenopathy, thyromegaly Respiratory exam: PRESENT: decreased breath sounds Cardiovascular exam: PRESENT: irregular rhythm GI/Abdominal exam: PRESENT: normal bowel sounds, soft. ABSENT: distended, gua rding, mass, organolmegaly, rebound, tenderness Rectal exam: PRESENT: deferred Extremities exam: PRESENT: full ROM. ABSENT: calf tenderness, clubbing, pedal edema Neurological exam: PRESENT: alert, awake, oriented to person, oriented to place, oriented to time, oriented to situation, CN II-XII grossly intact. ABSENT: jonna r sensory deficit Psychiatric exam: PRESENT: appropriate affect, normal mood. ABSENT: homicidal ideation, suicidal ideation Results Laboratory Results: 11/30/19 05:26 11/30/19 05:26 11/30/19 11/30/19 11/30/19 05:26 05:26 05:26 WBC 17.2 H RBC 4.55 Hgb 13.6 Hct 39.5 MCV 87 MCH 29.9 MCHC 34.4 RDW 14.2 H Plt Count 337 Seg Neutrophils % 89.6 H Sodium 132.8 L Potassium 5.0 Chloride 100 Carbon Dioxide 23 Anion Gap 10 BUN 15 Creatinine 0.58 Est GFR ( Amer) > 60 Glucose 128 H Calcium 9.7 Magnesium 2.2 Total Bilirubin 0.5 AST 21 Alkaline Phosphatase 75 Total Protein 5.9 L Albumin 3.4 L Triglycerides 86 Cholesterol 169.95 LDL Cholesterol Direct 120 H VLDL Cholesterol 17.0 HDL Cholesterol 39 L TSH 0.58 11/29/19 11/29/19 11/29/19 02:41 10:20 10:20 Creatine Kinase 45 L Troponin I 0.015 0.018 11/29/19 11/29/19 11/29/19 15:09 15:09 21:46 Creatine Kinase 53 L 42 L Troponin I 0.012 11/29/19 21:46 Creatine Kinase Troponin I < 0.012 Impressions: Chest X-Ray 11/29/19 02:17 IMPRESSION: Ill-defined patchy airspace disease left upper lobe. Soft Tissue Neck CT 11/29/19 03:49 IMPRESSION: 1. 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 For tissue diagnosis bronchoscopy could likely obtain tissue on the right. 2. No evidence of pulmonary embolus. 3. Evidence of some likely aspiration in the medial right lower lobe. 4. Evidence of likely infectious etiology in the left lung and this could be viral in nature. Imaging features can be seen with viral or COVID 19 pneumonia, though are nonspecific and can occur with a variety of infectious and noninfectious processes. [PneInd] 5. No acute abnormality in the neck. 6. CHUCKIE Kumari in the emergency department, was made aware of impression one and four by myself by phone on 11/29/2019 at 4:55 AM eastern time. Chest/Abdomen CTA 11/29/19 03:50 IMPRESSION: 1. 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 For tissue diagnosis bronchoscopy could likely obtain tissue on the right. 2. No evidence of pulmonary embolus. 3. Evidence of some likely aspiration in the medial right lower lobe. 4. Evidence of likely infectious etiology in the left lung and this could be viral in nature. Imaging features can be seen with viral or COVID 19 pneumonia, though are nonspecific and can occur with a variety of infectious and noninfectious processes. [PneInd] 5. No acute abnormality in the neck. 6. CHUCKIE Kumari in the emergency department, was made aware of impression one and four by myself by phone on 11/29/2019 at 4:55 AM eastern time. Assessment and Plan - Diagnosis (1) COPD exacerbation Is this a current diagnosis for this admission?: Yes Plan: 11/29/2019-patient is going to be admitted to [facility] as inpatient for COPD exacerbation. Started on IV Rocephin, IV Zithromax. Coronavirus testing is pe nding. Continue albuterol nebulizations. Provide nicotine patch. GI prophylaxis DVT prophylaxis needed. To start him on IV Solu-Medrol. Patient is not on home oxygen. Provide oxygen supplementations. 11/30/2019-patient admitted with COPD exacerbation. Receiving IV antibiotic therapy, and IV Solu-Medrol. He is also receiving DuoNeb nebulizations. Pulse ox is 94% on 2 L .. pt is doing better (2) Pneumonia Qualifiers: Pneumonia type: due to unspecified organism Laterality: unspecified laterality Lung location: unspecified part of lung Qualified Code(s): J18.9 - Pneumonia, unspecified organism Is this a current diagnosis for this admission?: Yes Plan: 11/29/19-patient admitted with community-acquired pneumonia. Sputum cultures blood cultures are requested started on IV Rocephin and Zithromax. Coronavirus testing is pending. 11/30/2019-patient admitted with community-acquired pneumonia blood cultures sp utum cultures are pending presently on IV Rocephin and Zithromax. covid test is negative. (3) Coronary artery disease Qualifiers: Coronary Disease-Associated Artery/Lesion type: [place] artery Associated angina: with unspecified angina Is this a current diagnosis for this admission?: No Plan: 11/29/2019-patient is given the history of coronary artery disease status post stent placements. Denies any chest pains at the time of admission 11/30/2019-patient has history of coronary artery disease status post stent placement. Denies any chest pains. Troponins are negative during this hospital stay. (4) Lung mass Is this a current diagnosis for this admission?: Yes Plan: 11/29/2019-CT scan of the chest suggestive of bronchogenic carcinoma involving the left upper and middle lobe. Consultation with Dr. Ford is requested. 11/30/2019-CT scan suggestive of bronchogenic carcinoma plan is discussed with Dr. Ford, he is making arrangements for the patient to follow-up with pulmonology in [place] for bronchoscopy as an outpatient. (5) Tobacco abuse Is this a current diagnosis for this admission?: No Plan: 11/29/2019-patient has history of chronic smoking for more than 50 years. Smoking consult was provided to start him on nicotine patch 21 mcg daily. (6) COVID-19 Is this a current diagnosis for this admission?: Yes Plan: 11/29/2019-patient came in with complaints of shortness of breath associated with fatigue and weakness coronavirus testing is pending. [id number] came back negative. (7) Atrial fibrillation Is this a current diagnosis for this admission?: Yes Plan: 12/10/2019-patient has history of atrial fib not on anticoagulation. Consultation Dr. Howell is requested. Heart rate is around 120 this morning is fluctuating between 120 to1 30 to give digoxin 0.25 mg IV 1 dose. - Time Anticipated Discharge Disposition: Home, Self Care Anticipated Discharge Timeframe: within 48 hours
[2019-11-30] MEDS ORDERED: DIGOXIN INJ 0.5 MG/2 ML AMPULE IV ONE (11:15)
[2019-11-30] MEDS ORDERED: DIGOXIN INJ 0.5 MG/2 ML AMPULE ONE (11:55)
--- NOTE | 2019-11-30 14:25 | CDI QUERY ---
CDI Query CDI Review: We are seeking further clarification of documentation to reflect the severity of illness of your patient. Per Progress Notes: 12/10/2019-patient has history of atrial fib not on anticoagulation. Consultation Dr. Howell is requested. Heart rate is around 120 this morning is fluctuating between 120 to1 30 to give digoxin 0.25 mg IV 1 dose. Based on your medical judgement, can you further clarify the atrial fibrillation in the Progress Notes: Paroxysmal A-fib Persistent A-fib Chronic (permanent) A-fib Other Unable to determine Thank you for your consideration. VANNA RodriguezN RN Clinical Flight Service Agent Physician Advisor Jose
[2019-11-30] MEDS: METOPROLOL TARTRATE 25 MG TABLET PO SCH ×2 (15:16→21:07)
[2019-11-30] MEDS: APIXABAN 5 MG TABLET PO SCH (18:39)
[2019-11-30] MEDS: IPRATROPIUM/ALBUTEROL 0.5-2.5 MG/3 ML AMPUL NEB PRN (18:44)
--- NOTE | 2019-11-30 20:45 | PDOC CONSULTATION ---
Consultation-Blank Consultation: CARDIOLOGY CONSULTATION by Dr. Christine Sullivan on 11/30/2019. Patient seen at 3 PM. 60 minutes spent as patient more than 50% of time spent in direct patient care. REASON FOR CONSULTATION: Patient with episodes of atrial fibrillation. CONSULT REQUESTING PHYSICIAN: Dr. Burrows [facility] hospitalist physician group HISTORY OF PRESENT ILLNESS: The patient is a 59-year-old male with known history of COPD who continues to smoke, coronary artery disease with history of LAD stent in 2013, history of hypertension who was admitted with shortness of breath and found to have a left-sided pneumonia and a mass most likely cancer of the lung. The patient also had COVID-19 testing done which is negative for COVID-19 infection. The patient yesterday had runs of atrial fibrillation and this morning converted to sinus rhythm after a dose of digoxin 0.25 mg IV push. The patient does give a history of paroxysmal atrial fibrillation not on anticoagulation. He denies any chest pain or discomfort there is no PND orthopnea or leg edema. There is no anginal symptoms. The patient does have intermittent palpitations. There is no syncope. There is no TIA CVA symptoms. Past Medical History Cardiac Medical History: Reports: Atrial Fibrillation, Congestive Heart Failure, Coronary Artery Disease, Myocardial Infarction - x5, Hyperlipidema, Hypertension - hx of, Heart Murmur Denies: Peripheral Vascular Disease Pulmonary Medical History: Reports: Chronic Obstructive Pulmonary Disease (COPD) Denies: Asthma, Bronchitis, Pneumonia Neurological Medical History: Denies: Seizures GI Medical History: Reports: Diverticulitis, Gastroesophageal Reflux Disease Denies: Crohn's Disease, Hiatal Hernia Musculoskeltal Medical History: Denies: Arthritis, Fibromyalgia Psychiatric Medical History: Denies: Depression Hematology: Denies: Anemia Past Surgical History Past Surgical History: Reports: Cardiac Catheterization, Coronary Stent - x4, Orthopedic Surgery - Lumbar surgery x2 Denies: Appendectomy, Cholecystectomy, Colostomy, Coronary Artery Bypass Graft, Gastric Bypass Surgery, Herniorrhaphy, Pacemaker, Tonsillectomy Social History Information Source: Patient Lives with: Alone Smoking Status: Current Every Day Smoker Frequency of Alcohol Use: None Hx Recreational Drug Use: No Drugs: None Hx Prescription Drug Abuse: No. RESUSCITATION STATUS: The patient is a full code. His is a surrogate healthcare decision maker. Family History Family History: Reviewed & Not Pertinent Parental Family History Reviewed: Yes Children Family History Reviewed: Yes Sibling(s) Family History Reviewed.: Yes Medication/Allergy Home Medications: Nitroglycerin [Nitrostat 0.4 mg (1/150 Gr) Tabs 25/Bottle] 1 tab SL Q5MP PRN Oxycodone HCl [Oxy-Ir 5 mg Tablet] 15 mg PO Q4 PRN 08/14/15 Clopidogrel Bisulfate [Plavix 75 mg Tablet] 1 tab PO DAILY 11/01/15 Oxycodone HCl/Acetaminophen [Percocet 5-325 mg Tablet] 1 - 2 tab PO ASDIR PRN #25 tablet 11/05/15 Ipratropium [place] [Atrovent 0.02% Neb 0.5 mg/2.5 ml Ampul] 0.5 mg NEB Q6 PRN #50 vial.neb 11/18/19 Prednisone [Deltasone 10 mg Tablet] 10 mg PO ASDIR PRN #21 tablet 11/18/19 Allergies/Adverse Reactions: atorvastatin [From Lipitor] Allergy (Verified 11/18/19 15:41) "muslce and joint pain". Current Medications Generic Name Dose Route Start Last Admin Trade Name Freq PRN Reason Stop Dose Admin Acetaminophen 650 mg 11/29/19 09:08 Tylenol 325 Mg Tablet PO 12/29/19 09:07 Q4HP PRN FEVER >101 Albuterol 2.5 mg 11/29/19 14:30 11/30/19 20:29 Ventolin 0.083% Neb 2.5 Mg/3 Ml Ampul NEB 12/29/19 14:29 2.5 mg RTQ6 DEJAN Administration Albuterol/Ipratropium 3 ml 11/29/19 09:08 11/30/19 18:44 Duoneb 3 Ml Ampul NEB 12/29/19 09:07 3 ml RTQ4HP PRN Administration SHORTNESS OF BREATH Apixaban 5 mg 11/30/19 18:00 11/30/19 18:39 Eliquis 5 Mg Tablet PO 12/30/19 17:59 Not Given Started by me BID DEJAN Docusate Sodium 100 mg 11/29/19 10:00 11/30/19 18:37 Colace 100 Mg Capsule PO 12/29/19 09:59 100 mg BID DEJAN Administration Famotidine 20 mg 11/29/19 10:00 11/30/19 21:07 Pepcid 20 Mg Tablet PO 12/29/19 09:59 20 mg Q12 DEJAN Administration Hydromorphone HCl 4 mg 11/29/19 18:00 11/30/19 21:07 Dilaudid 2 Mg Tablet PO 12/06/19 17:59 4 mg Q4 DEJAN Administration Sodium Chloride 1,000 mls @ 75 mls/hr 11/29/19 09:08 11/30/19 21:08 Nacl 0.9% 1000 Ml Iv Soln IV 12/29/19 09:07 75 mls/hr CONTINUOUS PRN Administration THIS MED IS NOT "PRN" Ceftriaxone Sodium/Dextrose 1 gm in 50 mls @ 100 mls/hr 11/30/19 06:00 11/30/19 05:57 Rocephin Rtu 1 Gm/D5w 50 Ml Premix IV 12/07/19 05:59 Infused Q6AM DEJAN Infusion Azithromycin 500 mg/ Dextrose 250 mls @ 250 mls/hr 11/30/19 10:00 11/30/19 10:00 IV 12/07/19 09:59 250 ml/hr DAILY DEJAN 250 mls/hr Administration Lisinopril 10 mg 11/30/19 10:00 11/30/19 09:53 Prinivil 10 Mg Tablet PO 12/30/19 09:59 10 mg DAILY DEJAN Administration Methylprednisolone Sodium Succinate 40 mg 11/29/19 14:00 11/30/19 21:07 Solu-Medrol Inj/Pf 40 Mg/1 Ml Sdv IV 12/29/19 13:59 40 mg Q8 DEJAN Administration Metoprolol Tartrate 5 mg 11/29/19 18:13 11/29/19 19:20 Lopressor Inj/Pf 5 Mg/5 Ml Sdv IV 12/29/19 18:12 5 mg Q6HP PRN Administration GIVE FOR HR > [] Metoprolol Tartrate 25 mg 11/30/19 11:00 11/30/19 21:07 Lopressor 25 Mg Tablet PO 12/30/19 10:59 25 mg Prescribed by hi Q12 DEJAN Administration Nicotine 1 each 11/29/19 09:25 Nicoderm 21 Mg/24 Hr Transderm Patch TD 12/29/19 09:24 DAILYP PRN WITHDRAWAL SYMPTOMS Ondansetron HCl 4 mg 09/08/20 09:08 Zofran Inj/Pf 4 Mg/2 Ml Sdv IV 12/29/19 09:07 Q6HP PRN FOR NAUSEA/VOMITING Patient Own Medication 2 puff 11/29/19 18:00 Glycopyrrolate/Formoterol Fum [Bevespi Aerosphere Inhaler] 12/29/19 17:59 BID DEJAN Patient Own Medication 2 puff 11/29/19 18:00 Ipratropium [place] [Atrovent Hfa] 12/29/19 17:59 QID [facility] Discontinued Medications Generic Name Dose Route Start Last Admin Trade Name Freq PRN Reason Stop Dose Admin Albuterol/Ipratropium 3 ml 11/29/19 02:17 11/29/19 02:29 Duoneb 3 Ml Ampul NEB 11/29/19 02:18 3 ml NOW ONE Administration Albuterol/Ipratropium 3 ml 11/29/19 02:21 11/29/19 02:29 Duoneb 3 Ml Ampul NEB 11/29/19 02:22 3 ml NOW ONE Administration Azithromycin 500 mg 11/29/19 03:52 11/29/19 05:01 Zithromax Inj 500 Mg Vial IV 11/29/19 03:53 500 mg IVBAG (ED) ONE Administration Clopidogrel Bisulfate 75 mg 11/30/19 10:00 11/30/19 09:52 Plavix 75 Mg Tablet PO 12/30/19 09:59 75 mg DAILY [facility] Administration Digoxin 0.25 mg 11/30/19 11:15 11/30/19 11:57 Lanoxin Inj 0.5 Mg/2 Ml Ampule IV 11/30/19 11:16 0.25 mg NOW ONE Administration Digoxin Confirm 11/30/19 11:55 11/30/19 12:07 Lanoxin Inj 0.5 Mg/2 Ml Ampule Administered 11/30/19 11:56 0.5 mg Dose Administration 0.5 mg .ROUTE .STK-MED ONE Enoxaparin Sodium 40 mg 11/29/19 10:00 11/30/19 09:54 Lovenox Inj 40 Mg/0.4 Ml Disp.Syrin SUBCUT 12/29/19 09:59 40 mg DAILY [facility] Administration Ceftriaxone Sodium/Dextrose 1 gm in 50 mls @ 100 mls/hr 11/29/19 03:52 11/29/19 04:52 Rocephin Rtu 1 Gm/D5w 50 Ml Premix IV 11/29/19 04:21 Infused NOW ONE Infusion Methylprednisolone Sodium Succinate 125 mg 11/29/19 02:17 11/29/19 02:29 Solu-Medrol Inj/Pf 125 Mg/2 Ml Sdv IV 11/29/19 02:18 125 mg NOW ONE Administration Morphine Sulfate 2 mg 11/29/19 03:06 11/29/19 03:15 Morphine 10 Mg/Ml Inj IV 11/29/19 03:07 2 mg NOW ONE Administration Review of Systems Constitutional: PRESENT: fatigue, weakness. ABSENT: fever(s), headache(s), night sweats Eyes: ABSENT: visual disturbances Ears: ABSENT: hearing changes Nose, Mouth, and Throat: ABSENT: sore throat Cardiovascular: ABSENT: palpitations Respiratory: PRESENT: cough, dyspnea Gastrointestinal: ABSENT: constipation, heartburn, hematemesis, hematochezia Genitourinary: ABSENT: hematuria Musculoskeletal: ABSENT: deformity, joint swelling Neurological: ABSENT: abnormal gait, abnormal speech, confusion, dizziness, focal weakness, syncope Psychiatric: ABSENT: anxiety, depression, homidical ideation, suicidal ideation Physical Exam the patient is well-built and well-nourished at present in no acute distress. Selected Entries 11/30/19 11:39 Temperature 97.6 F Temperature Oral Source Pulse Rate 90 Respiratory 20 Rate Blood Pressure 112/80 Blood Pressure 90 Mean BP Location Right Arm BP Position Sitting O2 Sat by Pulse 97 Oximetry Oxygen Flow 4.00 Rate Oxygen Delivery Nasal Cannula Method HEAD: Is atraumatic normocephalic. EYES: Pupils are equal round regular reactive to light accommodation. Extraocular movements are normal. There is no conjunctival pallor. There is no scleral icterus. EARS: Tympanic membranes are intact. External auditory canals are clear. NOSE: There is no deviated nasal septum. There is no inflammation nasal mucous membrane. MOUTH: Mucous mem branes of the mouth are moist tongue is moist. There is no ulcers. THROAT: There is no redness of the oropharynx. There is no exudates. SKIN: There is no skin rashes there is no petechia or ecchymosis there is no skin lesions. NECK: Is supple there is no JVD. Carotids are equal there is no bruit. There is no lymphadenopathy. There is no goiter. There is no accessory muscle respiration use. Trachea central LUNGS: There is diminished air entry and prolonged expiration. There is a few dry crackles and rhonchi in the left upper lobe. On percussion there is hyperresonance throughout. On palpation there is no chest wall tenderness. Heart: S1-S2 is heard. S1 is of normal intensity now there is no S3 gallop there is no S4 gallop. There is systolic murmur left sternal border and the apex there is no rub. ABDOMEN: Soft. Nontender there is no paraspinal megaly. Bowel sounds are well heard. EXTREMITIES: Peripheral pulses well felt. There is no edema. Leg pulses are well felt. There is no DVT or cellulitis. There is no sinus clubbing. Capillary refill is normal. DEVELOPMENT ARCHITECT: The patient is conscious awake alert oriented x3 with no focal deficits. PSYCHIATRIC: The patient judgment insight are intact his affect is normal. Labs- Entire Visit 11/29/19 11/29/19 11/29/19 02:41 02:41 02:41 WBC 14.3 H RBC 4.84 Hgb 14.4 Hct 41.3 MCV 85 MCH 29.9 MCHC 35.0 RDW 14.5 H Plt Count 315 Lymph % (Auto) 9.3 L [place] % (Auto) 6.3 Eos % (Auto) 1.3 Baso % (Auto) 0.6 Absolute Neuts (auto) 11.8 H Absolute Lymphs (auto) 1.3 Absolute Monos (auto) 0.9 Absolute Eos (auto) 0.2 Absolute Basos (auto) 0.1 Seg Neutrophils % 82.5 H PT 13.7 INR 1.03 APTT 29.2 VBG pH VBG pCO2 VBG HCO3 VBG Base Excess Sodium 129.5 L Potassium 4.6 Chloride 97 L Carbon Dioxide 22 Anion Gap 11 BUN 15 Creatinine 0.75 Est GFR ( Amer) > 60 Est GFR (MDRD) Non-Af > 60 Glucose 113 H Hemoglobin A1c % Calcium 9.4 Magnesium Total Bilirubin 0.5 Direct Bilirubin 0.3 Neonat Total Bilirubin Not Reportable Neonat Direct Bilirubin Not Reportable Neonat Indirect Bili Not Reportable AST 22 ALT 12 Alkaline Phosphatase 101 Creatine Kinase Troponin I Total Protein 6.6 Albumin 3.6 Triglycerides Cholesterol LDL Cholesterol Direct VLDL Cholesterol HDL Cholesterol TSH COVID-19 Source COVID-19 ([facility]) 11/29/19 11/29/19 11/29/19 02:41 02:41 05:49 WBC RBC Hgb Hct MCV MCH MCHC RDW Plt Count Lymph % (Auto) [place] % (Auto) Eos % (Auto) Baso % (Auto) Absolute Neuts (auto) Absolute Lymphs (auto) Absolute Monos (auto) Absolute Eos (auto) Absolute Basos (auto) Seg Neutrophils % PT INR APTT VBG pH 7.41 VBG pCO2 33.2 L VBG HCO3 20.7 VBG Base Excess -3.0 Sodium Potassium Chloride Carbon Dioxide Anion Gap BUN Creatinine Est GFR ( Amer) Est GFR (MDRD) Non-Af Glucose Hemoglobin A1c % Calcium Magnesium Total Bilirubin Direct Bilirubin Neonat Total Bilirubin Neonat Direct Bilirubin Neonat Indirect Bili AST ALT Alkaline Phosphatase Creatine Kinase Troponin I 0.015 Total Protein Albumin Triglycerides Cholesterol LDL Cholesterol Direct VLDL Cholesterol HDL Cholesterol TSH COVID-19 Source NASOPHARYNGEAL COVID-19 ([facility]) NOT DETECTED 11/29/19 11/29/19 11/29/19 10:20 10:20 15:09 WBC RBC Hgb Hct MCV MCH MCHC RDW Plt Count Lymph % (Auto) [place] % (Auto) Eos % (Auto) Baso % (Auto) Absolute Neuts (auto) Absolute Lymphs (auto) Absolute Monos (auto) Absolute Eos (auto) Absolute Basos (auto) Seg Neutrophils % PT INR APTT VBG pH VBG pCO2 VBG HCO3 VBG Base Excess Sodium Potassium Chloride Carbon Dioxide Anion Gap BUN Creatinine Est GFR ( Amer) Est GFR (MDRD) Non-Af Glucose Hemoglobin A1c % Calcium Magnesium Total Bilirubin Direct Bilirubin Neonat Total Bilirubin Neonat Direct Bilirubin Neonat Indirect Bili AST ALT Alkaline Phosphatase Creatine Kinase 45 L 53 L Troponin I 0.018 Total Protein Albumin Triglycerides Cholesterol LDL Cholesterol Direct VLDL Cholesterol HDL Cholesterol TSH COVID-19 Source COVID-19 ([facility]) 11/29/19 11/29/19 11/29/19 15:09 21:46 21:46 WBC RBC Hgb Hct MCV MCH MCHC RDW Plt Count Lymph % (Auto) [place] % (Auto) Eos % (Auto) Baso % (Auto) Absolute Neuts (auto) Absolute Lymphs (auto) Absolute Monos (auto) Absolute Eos (auto) Absolute Basos (auto) Seg Neutrophils % PT INR APTT VBG pH VBG pCO2 VBG HCO3 VBG Base Excess Sodium Potassium Chloride Carbon Dioxide Anion Gap BUN Creatinine Est GFR ( Amer) Est GFR (MDRD) Non-Af Glucose Hemoglobin A1c % Calcium Magnesium Total Bilirubin Direct Bilirubin Neonat Total Bilirubin Neonat Direct Bilirubin Neonat Indirect Bili AST ALT Alkaline Phosphatase Creatine Kinase 42 L Troponin I 0.012 < 0.012 Total Protein Albumin Triglycerides Cholesterol LDL Cholesterol Direct VLDL Cholesterol HDL Cholesterol TSH COVID-19 Source COVID-19 ([facility]) 11/30/19 11/30/19 11/30/19 05:26 05:26 05:26 WBC 17.2 H RBC 4.55 Hgb 13.6 Hct 39.5 MCV 87 MCH 29.9 MCHC 34.4 RDW 14.2 H Plt Count 337 Lymph % (Auto) 5.7 L [place] % (Auto) 4.6 Eos % (Auto) 0.0 Baso % (Auto) 0.1 Absolute Neuts (auto) 15.4 H Absolute Lymphs (auto) 1.0 Absolute Monos (auto) 0.8 Absolute Eos (auto) 0.0 Absolute Basos (auto) 0.0 Seg Neutrophils % 89.6 H PT INR APTT VBG pH VBG pCO2 VBG HCO3 VBG Base Excess Sodium 132.8 L Potassium 5.0 Chloride 100 Carbon Dioxide 23 Anion Gap 10 BUN 15 Creatinine 0.58 Est GFR ( Amer) > 60 Est GFR (MDRD) Non-Af > 60 Glucose 128 H Hemoglobin A1c % 5.8 Calcium 9.7 Magnesium 2.2 Total Bilirubin 0.5 Direct Bilirubin 0.4 Neonat Total Bilirubin Not Reportable Neonat Direct Bilirubin Not Reportable Neonat Indirect Bili Not Reportable AST 21 ALT 11 Alkaline Phosphatase 75 Creatine Kinase Troponin I Total Protein 5.9 L Albumin 3.4 L Triglycerides 86 Cholesterol 169.95 LDL Cholesterol Direct 120 H VLDL Cholesterol 17.0 HDL Cholesterol 39 L TSH COVID-19 Source COVID-19 ([facility]) 11/30/19 05:26 WBC RBC Hgb Hct MCV MCH MCHC RDW Plt Count Lymph % (Auto) [place] % (Auto) Eos % (Auto) Baso % (Auto) Absolute Neuts (auto) Absolute Lymphs (auto) Absolute Monos (auto) Absolute Eos (auto) Absolute Basos (auto) Seg Neutrophils % PT INR APTT VBG pH VBG pCO2 VBG HCO3 VBG Base Excess Sodium Potassium Chloride Carbon Dioxide Anion Gap BUN Creatinine Est GFR ( Amer) Est GFR (MDRD) Non-Af Glucose Hemoglobin A1c % Calcium Magnesium Total Bilirubin Direct Bilirubin Neonat Total Bilirubin Neonat Direct Bilirubin Neonat Indirect Bili AST ALT Alkaline Phosphatase Creatine Kinase Troponin I Total Protein Albumin Triglycerides Cholesterol LDL Cholesterol Direct VLDL Cholesterol HDL Cholesterol TSH 0.58 COVID-19 Source COVID-19 ([facility]) Chest X-Ray 11/29/19 02:17 IMPRESSION: Ill-defined patchy airspace disease left upper lobe. Soft Tissue Neck CT 11/29/19 03:49 IMPRESSION: 1. 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 For tissue diagnosis bronchoscopy could likely obtain tissue on the right. 2. No evidence of pulmonary embolus. 3. Evidence of some likely aspiration in the medial right lower lobe. 4. Evidence of likely infectious etiology in the left lung and this could be viral in nature. Imaging features can be seen with viral or COVID 19 pneumonia, though are nonspecific and can occur with a variety of infectious and noninfectious processes. [PneInd] 5. No acute abnormality in the neck. 6. CHUCKIE Kumari in the emergency department, was made aware of impression one and four by myself by phone on 11/29/2019 at 4:55 AM eastern time. Chest/Abdomen CTA 11/29/19 03:50 IMPRESSION: 1. 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 For tissue diagnosis bronchoscopy could likely obtain tissue on the right. 2. No evidence of pulmonary embolus. 3. Evidence of some likely aspiration in the medial right lower lobe. 4. Evidence of likely infectious etiology in the left lung and this could be viral in nature. Imaging features can be seen with viral or COVID 19 pneumonia, though are nonspecific and can occur with a variety of infectious and noninfectious processes. [PneInd] 5. No acute abnormality in the neck. 6. CHUCKIE Kumari in the emergency department, was made aware of impression one and four by myself by phone on 11/29/2019 at 4:55 AM eastern time. EKG #1: Shows sinus tachycardia. Baseline artifact. The patient second EKG shows atrial flutter with a ventricular response of 138 bpm. The patient 30 EKG shows baseline artifact most likely atrial flutter/fibrillation. Diffuse nonspecific T and ST-T changes. IMPRESSION/RECOMMENDATION: 1. PAROXYSMAL atrial flutter/fibrillation: At present the monitor shows sinus rhythm. We will start the patient on a beta-christopher. The patient's corrected Conrad Vascor is is 2. [1 for hypertension and 1 for coronary artery disease] this Conrad vas 2 score and the fact that the patient is most likely cancer of the lung which makes him a little high risk for pulmonary emboli chronic anticoagulation is indicated. Discussed the benefits and risks of anticoagulation. We will start the patient on Eliquis 5 mg p.o. twice daily. We will watch the patient closely for any bleeding especially hemoptysis in view of the lung cancer. 2. Left upper lobe pneumonia: Continue antibiotics 3. Most likely bronchogenic cancer/lung cancer: Oncology on the case. 4. Coronary artery disease. History of LAD stent in 2013. No anginal symptoms. Later would recommend that the patient have a repeat IV Lexiscan Cardiolite stress test. We will stop the patient's Plavix since the patient is on Eliquis.. 5. Hypertension: Blood pressure well controlled. 6. COPD: At present no acute exacerbation 7. History of tobacco abuse disorder. Tobacco cessation counseling given 3 minutes spent on this patient 8. Systolic murmur: Later would recommend echocardiogram to assess for etiology of the murmur. Medications reviewed. Medical regimen and management plan discussed with attending provider on the case. Medical decision making is of high complexity. 60 minutes spent on this patient with more than 50% of time spent in direct patient care. Will follow
--- NOTE | 2019-11-30 20:50 | EKG REPORT ---
SEVERITY:- ABNORMAL ECG - Excess baseline artefact Probabale atrial fibrillation : Confirmed by: Zeus Zambrano MD 30-Nov-2019 20:49:58
[2019-12-01] MEDS: ALBUTEROL SULFATE 0.083% NEB 2.5 MG/3 ML AMPUL NEB SCH ×4 (02:15→20:51)
[2019-12-01] MEDS: HYDROMORPHONE HCL 2 MG TABLET PO SCH ×6 (02:54→21:02)
[2019-12-01] MEDS: CEFTRIAXONE 1 GM/D5W RTU 1 GM/50 ML RTUPB IV SCH (05:36)
[2019-12-01] MEDS: METHYLPREDNISOLONE INJ 40 MG/1 ML SDV IV SCH ×2 (05:36→18:30)
--- NOTE | 2019-12-01 08:34 | PDOC PROGRESS REPORT ---
Subjective Progress Note for:: 12/01/19 Subjective:: Yesterday was a rough day, patient had a lot of coughing and desaturation, ultimately was turned up to 4 L, this morning he is doing a little bit better and his oxygen was turned down to 3 L. Reason For Visit: PNEUMONIA Physical Exam Vital Signs: Temp Pulse Resp BP Pulse Ox 97.7 F 75 16 114/54 L 97 12/01/19 07:42 12/01/19 07:53 12/01/19 07:53 12/01/19 03:32 12/01/19 07:53 Intake & Output 11/30/19 12/01/19 12/02/19 06:59 06:59 06:59 Intake Total 853 2136 Output Total 700 2375 Balance 153 -239 Weight 79.6 kg 78.7 kg General appearance: PRESENT: no acute distress, well-developed, well-nourished Head exam: PRESENT: atraumatic, normocephalic Eye exam: PRESENT: conjunctiva pink, EOMI, PERRLA. ABSENT: scleral icterus Ear exam: PRESENT: normal external ear exam Mouth exam: PRESENT: moist, tongue midline Neck exam: ABSENT: carotid bruit, JVD, lymphadenopathy, thyromegaly Respiratory exam: PRESENT: clear to auscultation mike. ABSENT: rales, rhonchi, wheezes Cardiovascular exam: PRESENT: RRR. ABSENT: diastolic murmur, rubs, systolic murmur Pulses: PRESENT: normal dorsalis pedis pul Vascular exam: PRESENT: normal capillary refill GI/Abdominal exam: PRESENT: normal bowel sounds, soft. ABSENT: distended, guarding, mass, organolmegaly, rebound, tenderness Rectal exam: PRESENT: deferred Extremities exam: PRESENT: full ROM. ABSENT: calf tenderness, clubbing, pedal edema Neurological exam: PRESENT: alert, awake, oriented to person, oriented to place, oriented to time, oriented to situation, CN II-XII grossly intact. ABSENT: motor sensory deficit Psychiatric exam: PRESENT: appropriate affect, normal mood. ABSENT: homicidal ideation, suicidal ideation Skin exam: PRESENT: dry, intact, warm. ABSENT: cyanosis, rash Results Laboratory Results: 11/30/19 05:26 11/30/19 05:26 09/08/20 09/08/20 09/08/20 02:41 10:20 10:20 Creatine Kinase 45 L Troponin I 0.015 0.018 11/29/19 11/29/19 11/29/19 15:09 15:09 21:46 Creatine Kinase 53 L 42 L Troponin I 0.012 11/29/19 21:46 Creatine Kinase Troponin I < 0.012 Impressions: Chest X-Ray 11/29/19 02:17 IMPRESSION: Ill-defined patchy airspace disease left upper lobe. Soft Tissue Neck CT 11/29/19 03:49 IMPRESSION: 1. 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 For tissue diagnosis bronchoscopy could likely obtain tissue on the right. 2. No evidence of pulmonary embolus. 3. Evidence of some likely aspiration in the medial right lower lobe. 4. Evidence of likely infectious etiology in the left lung and this could be viral in nature. Imaging features can be seen with viral or COVID 19 pneumonia, though are nonspecific and can occur with a variety of infectious and noninfectious processes. [PneInd] 5. No acute abnormality in the neck. 6. CHUCKIE Kumari in the emergency department, was made aware of impression one and four by myself by phone on 11/29/2019 at 4:55 AM eastern time. Chest/Abdomen CTA 11/29/19 03:50 IMPRESSION: 1. 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 For tissue diagnosis bronchoscopy could likely obtain tissue on the right. 2. No evidence of pulmonary embolus. 3. Evidence of some likely aspiration in the medial right lower lobe. 4. Evidence of likely infectious etiology in the left lung and this could be viral in nature. Imaging features can be seen with viral or COVID 19 pneumonia, though are nonspecific and can occur with a variety of infectious and noninfectious processes. [PneInd] 5. No acute abnormality in the neck. 6. CHUCKIE Kumari in the emergency department, was made aware of impression one and four by myself by phone on 11/29/2019 at 4:55 AM eastern time. Assessment & Plan - Diagnosis (1) Lung mass Is this a current diagnosis for this admission?: Yes Plan: Had trouble sleeping last night I will add trazodone, but otherwise will follow in house, and as noted previously make arrangements for outpatient bronchoscopy. - Time Time Spent with patient: 25-34 minutes
--- NOTE | 2019-12-01 09:24 | PDOC PROGRESS REPORT ---
Subjective Progress Note for:: 12/01/19 Subjective:: 59 year old male with history of COPD, chronic smoker, history of heart attack with multiple stents came to the emergency room with complaint of increasing shortness of breath. Work-up in the emergency room indicates left-sided pneumonia and also possible left upper middle lobe carcinoma. Consultation with oncology was done. Coronavirus testing is pending. Patient denies any fever denies any chills. Complains of dry cough. Wants to be a full code agreed to stay in the hospital for further management. 11/30/1947-33-brbr-old male with history of COPD not on home oxygen, chronic smoker history of coronary artery disease with multiple stent placements admitted with COPD exacerbation and right-sided pneumonia. CT scan suggestive of lung cancer oncology consult was done. Patient is doing well his heart rate went up to 130s 140s since last night. Discussed he case with Dr. Howell he recommended to give a 0.25 mg IV digoxin at this time. Patient is comfortably in the bed communicating well. Not in distress. 12/01/[id number]-zezt-old male admitted with COPD exacerbation and community- acquired pneumonia. Also had A. fib with RVR given digoxin 0.25mg dose. Rate is controlled now. Patient has history of paroxysmal A. fib. He was started on Eliquis 5 mg twice a day. Plan is to discontinue his aspirin and Plavix today. Patient agreed to stay in the hospital for another day. Reason For Visit: PNEUMONIA Physical Exam Vital Signs: Temp Pulse Resp BP Pulse Ox 97.7 F 75 16 114/54 L 97 12/01/19 07:42 12/01/19 07:53 12/01/19 07:53 12/01/19 03:32 12/01/19 07:53 Intake & Output 11/30/19 12/01/19 12/02/19 06:59 06:59 06:59 Intake Total 853 2136 Output Total 700 2375 Balance 153 -239 Weight 79.6 kg 78.7 kg General appearance: PRESENT: no acute distress, cooperative Head exam: PRESENT: atraumatic Eye exam: PRESENT: PERRLA Mouth exam: PRESENT: moist, tongue midline Teeth exam: PRESENT: poor dentation Neck exam: ABSENT: carotid bruit, JVD, lymphadenopathy, thyromegaly Respiratory exam: PRESENT: decreased breath sounds Cardiovascular exam: PRESENT: RRR. ABSENT: diastolic murmur, rubs, systolic murmur GI/Abdominal exam: PRESENT: normal bowel sounds, soft. ABSENT: distended, guarding, mass, organolmegaly, rebound, tenderness Rectal exam: PRESENT: deferred Extremities exam: PRESENT: full ROM. ABSENT: calf tenderness, clubbing, pedal edema Neurological exam: PRESENT: alert, awake, oriented to person, oriented to place, oriented to time, oriented to situation, CN II-XII grossly intact. ABSENT: motor sensory deficit Psychiatric exam: PRESENT: appropriate affect, normal mood. ABSENT: homicidal ideation, suicidal ideation Results Laboratory Results: 11/30/19 05:26 11/30/19 05:26 11/29/19 11/29/19 11/29/19 02:41 10:20 10:20 Creatine Kinase 45 L Troponin I 0.015 0.018 11/29/19 11/29/19 11/29/19 15:09 15:09 21:46 Creatine Kinase 53 L 42 L Troponin I 0.012 11/29/19 21:46 Creatine Kinase Troponin I < 0.012 Impressions: Chest X-Ray 11/29/19 02:17 IMPRESSION: Ill-defined patchy airspace disease left upper lobe. Soft Tissue Neck CT 11/29/19 03:49 IMPRESSION: 1. 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 For tissue diagnosis bronchoscopy could likely obtain tissue on the right. 2. No evidence of pulmonary embolus. 3. Evidence of some likely aspiration in the medial right lower lobe. 4. Evidence of likely infectious etiology in the left lung and this could be viral in nature. Imaging features can be seen with viral or COVID 19 pneumonia, though are nonspecific and can occur with a variety of infectious and noninfectious processes. [PneInd] 5. No acute abnormality in the neck. 6. CHUCKIE Kumari in the emergency department, was made aware of impression one and four by myself by phone on 11/29/2019 at 4:55 AM eastern time. Chest/Abdomen CTA 11/29/19 03:50 IMPRESSION: 1. 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 For tissue diagnosis bronchoscopy could likely obtain tissue on the right. 2. No evidence of pulmonary embolus. 3. Evidence of some likely aspiration in the medial right lower lobe. 4. Evidence of likely infectious etiology in the left lung and this could be viral in nature. Imaging features can be seen with viral or COVID 19 pneumonia, though are nonspecific and can occur with a variety of infectious and noninfectious processes. [PneInd] 5. No acute abnormality in the neck. 6. CHUCKIE Kumari in the emergency department, was made aware of impression one and four by myself by phone on 11/29/2019 at 4:55 AM eastern time. Assessment and Plan - Diagnosis (1) COPD exacerbation Is this a current diagnosis for this admission?: Yes Plan: 11/29/2019-patient is going to be admitted to [facility] as inpatient for COPD exace rbation. Started on IV Rocephin, IV Zithromax. Coronavirus testing is pending. Continue albuterol nebulizations. Provide nicotine patch. GI prophylaxis DVT prophylaxis needed. To start him on IV Solu-Medrol. Patient is not on home oxygen. Provide oxygen supplementations. 11/30/2019-patient admitted with COPD exacerbation. Receiving IV antibiotic therapy, and IV Solu-Medrol. He is also receiving DuoNeb nebulizations. Pulse ox is 94% on 2 L .. pt is doing better 12/01/19-patient admitted with COPD exacerbation. Getting IV Solu-Medrol 40 mg every 8 hours on nebulizer treatments. Pulse ox is 98% on 6 L this morning. Plan is to continue to provide supportive care and is receiving IV antibiotic therapy Rocephin and Zithromax. Blood cultures are negative so far. (2) Pneumonia Qualifiers: Pneumonia type: due to unspecified organism Laterality: unspecified laterality Lung location: unspecified part of lung Qualified Code(s): J18.9 - Pneumonia, unspecified organism Is this a current diagnosis for this admission?: Yes Plan: 11/29/19-patient admitted with community-acquired pneumonia. Sputum cultures blood cultures are requested started on IV Rocephin and Zithromax. Coronavirus testing is pending. 11/30/2019-patient admitted with community-acquired pneumonia blood cultures sputum cultures are pending presently on IV Rocephin and Zithromax. covid test is negative. 12/01/2019-covid test is negative. Blood cultures sputum cultures are negative so far. Plan is to continue IV Rocephin and Zithromax at this time. (3) Coronary artery disease Qualifiers: Coronary Disease-Associated Artery/Lesion type: [place] artery Associated angina: with unspecified angina Is this a current diagnosis for this admission?: No Plan: 11/29/2019-patient is given the history of coronary artery disease status post stent placements. Denies any chest pains at the time of admission 11/30/2019-patient has history of coronary artery disease status post stent placement. Denies any chest pains. Troponins are negative during this hospital stay. 12/01/2019-patient has history of coronary artery disease status post stent placement. To discontinue aspirin and Plavix and patient is presently on Eliquis [address] twice daily. Dr. Howell is on board. (4) Lung mass Is this a current diagnosis for this admission?: Yes Plan: 11/29/2019-CT scan of the chest suggestive of bronchogenic carcinoma involving the left upper and middle lobe. Consultation with Dr. Ford is requested. 11/30/2019-CT scan suggestive of bronchogenic carcinoma plan is discussed with Dr. Ford, he is making arrangements for the patient to follow-up with pulmonology in [place] for bronchoscopy as an outpatient. (5) Tobacco abuse Is this a current diagnosis for this admission?: No Plan: 11/29/2019-patient has history of chronic smoking for more than 50 years. Smoking consult was provided to start him on nicotine patch 21 mcg daily. (6) COVID-19 Is this a current diagnosis for this admission?: Yes Plan: 11/29/2019-patient came in with complaints of shortness of breath associated with fatigue and weakness coronavirus testing is pending. [id number] came back negative. (7) Atrial fibrillation Is this a current diagnosis for this admission?: Yes Plan: 12/10/2019-patient has history of atrial fib not on anticoagulation. Consult ation Dr. Howell is requested. Heart rate is around 120 this morning is fluctuating between 120 to1 30 to give digoxin 0.25 mg IV 1 dose. 12/01/2019-patient is on Eliquis 5 mg p.o. twice daily. On examination in sinus rhythm. Heart rate is in the 70s. Plan is to continue metoprolol 25 mg p.o. twice daily. Patient has history of paroxysmal atrial fibrillation. - Time Anticipated Discharge Disposition: Home, Self Care Anticipated Discharge Timeframe: within 48 hours
[2019-12-01] MEDS: METOPROLOL TARTRATE 25 MG TABLET PO SCH ×2 (09:27→21:01)
[2019-12-01] MEDS: DOCUSATE SODIUM 100 MG CAPSULE PO SCH ×2 (09:28→18:30)
[2019-12-01] MEDS: FAMOTIDINE 20 MG TABLET PO SCH ×2 (09:28→21:01)
[2019-12-01] MEDS: APIXABAN 5 MG TABLET PO SCH ×2 (09:28→18:32)
[2019-12-01] MEDS: AZITHROMYCIN 500 MG in DEXTROSE 5%-WATER 250 ML IV SCH (10:04)
[2019-12-01] MEDS: LISINOPRIL 10 MG TABLET PO SCH (10:06)
--- NOTE | 2019-12-01 12:45 | EKG REPORT ---
SEVERITY:- NORMAL ECG - SINUS RHYTHM : Confirmed by: Zeus Zambrano MD 01-Dec-2019 12:44:27
--- NOTE | 2019-12-01 16:48 | Progress Note ---
Provider Note Provider Note: CARDIOLOGY PROGRESS NOTE by Dr. Christine Sullivan on 12/01/2019. OBJECTIVE: The patient had a rough night last night. He had severe cough and could not sleep. He also had some desaturations his oxygen had to be dilated up to 4 L/min and now subsequently his saturations are better is on 3 to 8 L/min. The patient continues to cough productive sputum which is yellowish in color with some blood streaks. There is no benson hemoptysis. There is no recurrence of atrial fibrillation. The patient has no anginal symptoms. There is no PND orthopnea or leg edema. There is no ventricular arrhythmias seen on the monitor. There is no TIA CVA symptoms. PHYSICAL EXAMINATION: The patient is well-built. In no acute distress at present. Selected Entries 12/01/19 15:16 Temperature 97.8 F Temperature Oral Source Pulse Rate 85 Respiratory 16 Rate Blood Pressure 132/68 H Blood Pressure 89 Mean BP Location Right Arm BP Position Sitting O2 Sat by Pulse 96 Oximetry Oxygen Flow 3.00 Rate Oxygen Delivery Nasal Cannula Method HEAD: Is atraumatic normocephalic. EYES: Pupils are equal round regular reactive to light accommodation. Extraocular movements are normal. There is no conjunctival pallor. There is no scleral icterus. EARS: Tympanic membranes are intact. External auditory canals are clear. NOSE: There is no deviated nasal septum. There is no inflammation nasal mucous membrane. MOUTH: Mucous membranes of the mouth are moist tongue is moist. There is no ulcers. THROAT: There is no redness of the oropharynx. There is no exudates. SKIN: There is no skin rashes there is no petechia or ecchymosis there is no skin lesions. NECK: Is supple there is no JVD. Carotids are equal there is no bruit. There is no lymphadenopathy. There is no goiter. There is no accessory muscle respiration use. Trachea central LUNGS: There is diminished air entry and prolonged expiration. There is a few dry crackles and rhonchi in the left upper lobe. There is a localized left upper lobe wheezing. Is also localized wheezing and rhonchi in the right mid zone. On percussion there is hyperresonance throughout. On palpation there is no chest wall tenderness. Heart: S1-S2 is heard. S1 is of normal intensity now there is no S3 gallop there is no S4 gallop. There is systolic murmur left sternal border and the apex there is no rub. ABDOMEN: Soft. Nontender there is no hepatosplenomegaly. Bowel sounds are well heard. EXTREMITIES: Peripheral pulses well felt. There is no edema. Leg pulses are well felt. There is no DVT or cellulitis. There is no sinus clubbing. Capillary refill is normal. LASTEX THREAD WINDER: The patient is conscious awake alert oriented x3 with no focal deficits. PSYCHIATRIC: The patient judgment insight are intact his affect is normal. Chest X-Ray 11/29/19 02:17 IMPRESSION: Ill-defined patchy airspace disease left upper lobe. Soft Tissue Neck CT 11/29/19 03:49 IMPRESSION: 1. 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 For tissue diagnosis bronchoscopy could likely obtain tissue on the right. 2. No evidence of pulmonary embolus. 3. Evidence of some likely aspiration in the medial right lower lobe. 4. Evidence of likely infectious etiology in the left lung and this could be viral in nature. Imaging features can be seen with viral or COVID 19 pneumonia, though are nonspecific and can occur with a variety of infectious and noninfectious processes. [PneInd] 5. No acute abnormality in the neck. 6. CHUCKIE Kumari in the emergency department, was made aware of impression one and four by myself by phone on 11/29/2019 at 4:55 AM eastern time. Chest/Abdomen CTA 11/29/19 03:50 IMPRESSION: 1. 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 For tissue diagnosis bronchoscopy could likely obtain tissue on the right. 2. No evidence of pulmonary embolus. 3. Evidence of some likely aspiration in the medial right lower lobe. 4. Evidence of likely infectious etiology in the left lung and this could be viral in nature. Imaging features can be seen with viral or COVID 19 pneumonia, though are nonspecific and can occur with a variety of infectious and noninfectious processes. [PneInd] 5. No acute abnormality in the neck. 6. CHUCKIE Kumari in the emergency department, was made aware of impression one and four by myself by phone on 11/29/2019 at 4:55 AM eastern time. EKG: Shows sinus rhythm. Normal EKG. IMPRESSION/RECOMMENDATION: 1. PAROXYSMAL atrial flutter/fibrillation: At present the monitor shows sinus rhythm. No recurrence on current dose of beta-christopher. Continue Eliquis there is no significant hemoptysis. We will watch the patient closely for any significant bleeding complications.. 2. Left upper lobe pneumonia: Continue antibiotics 3. Most likely bronchogenic cancer/lung cancer: Oncology on the case. 4. Coronary artery disease. History of LAD stent in 2013. No anginal symptoms. Later would recommend that the patient have a repeat IV Lexiscan Cardiolite stress test. We will stop the patient's Plavix since the patient is on Eliquis.. 5. Hypertension: Blood pressure well controlled. 6. COPD: At present no acute exacerbation 7. History of tobacco abuse disorder. Tobacco cessation counseling given 3 minutes spent on this patient 8. Systolic murmur: Later would recommend echocardiogram to assess for etiology of the murmur. Medications reviewed. Medical regimen and management plan discussed with attending provider on the case. Medical decision making is of high complexity. 40 minutes spent on this patient with more than 50% of time spent in direct patient care. Will follow.
[2019-12-01] MEDS: TRAZODONE HCL 50 MG TABLET PO PRN (21:01)
[2019-12-01] MEDS: IPRATROPIUM/ALBUTEROL 0.5-2.5 MG/3 ML AMPUL NEB PRN (23:48)
--- NOTE | 2019-12-02 00:49 | XCELERA REPORT ---
[address] [address] Transthoracic Echocardiogram Report Name: AGAPITO MANZO Age: 59 yrs Gender: Male : 1960 Patient Status: Inpatient Patient Location: [address] [place], [place] [address] Study Date: 12/01/2019 08:50 AM Height: 72 in Weight: 175 lb BSA: 2.0 m2 Procedure: A two-dimensional transthoracic echocardiogram with color flow and Doppler was performed. Study Quality: Poor. Reason For Study: Murmur / Paroxysmal Atrial Fib /Flutter History: Murmur / Paroxysmal Atrial Fib /Flutter. Ordering Physician: CHRISTINE CANAS Performed By: Heidi Ford Interpretation Summary The left ventricle is normal in size. There is normal left ventricular wall thickness. LV EF is 60% Left ventricular systolic function is normal. Doppler measurements suggest normal left ventricular diastolic function Probably no regional wall motion abnormality.No defenite thrombus.Cannot assesss ASD,VSD, or PFO. The right ventricle is not well visualized secondary to technical limitations Right atrium not well visualized secondary to technical limitations The left atrial size is normal. There is no evidence of mitral valve prolapse. There is no vegetation seen on the mitral valve. There is no mitral valve stenosis. There is a trace amount of mitral regurgitation There is no aortic valvular vegetation. There is no aortic valve stenosis There is aortic sclerosis without aortic stenosis. There is no LVOT obstruction. No aortic regurgitation is present. There is no tricuspid stenosis. There is a trace amount of tricuspid regurgitation Right ventricular systolic pressure is normal. RVSP is 22 mm of Hg , with RA mean of 10. There is no pulmonic valvular stenosis. There is no pulmonic valvular regurgitation. The aortic root is not well visualized but is probably normal size. The inferior vena cava was not visualized There is no pericardial effusion. MMode/2D Measurements & Calculations RVDd: 2.4 cm LVIDd: 4.3 cm FS: 32.3 % Ao root diam: 2.9 cm IVSd: 0.77 cm LVIDs: 2.9 cm EDV(Teich): 83.1 ml Ao root area: 6.6 cm2 LVPWd: 0.89 cm ESV(Teich): 32.6 ml EF(Teich): 60.8 % Doppler Measurements & Calculations MV E max arnoldo: MV dec slope: Ao V2 max: LV V1 max P.2 cm/sec 532.8 cm/sec2 122.1 cm/sec 4.0 mmHg MV A max arnoldo: MV dec time: 0.14 secAo max PG: LV V1 max: 55.3 cm/sec 6.0 mmHg 99.8 cm/sec MV E/A: 1.3 PA V2 max: TR max arnoldo: 82.7 cm/sec 173.0 cm/sec PA max P.7 mmHg TR max P.0 mmHg Left Ventricle The left ventricle is normal in size. There is normal left ventricular wall thickness. LV EF is 60%. Left ventricular systolic function is normal. Doppler measurements suggest normal left ventricular diastolic function. Probably no regional wall motion abnormality.No defenite thrombus.Cannot assesss ASD,VSD, or PFO. Right Ventricle The right ventricle is not well visualized secondary to technical limitations. Atria Right atrium not well visualized secondary to technical limitations. The left atrial size is normal. Mitral Valve There is no evidence of mitral valve prolapse. There is no vegetation seen on the mitral valve. There is no mitral valve stenosis. There is a trace amount of mitral regurgitation. Aortic Valve There is no aortic valvular vegetation. There is no aortic valve stenosis. There is aortic sclerosis without aortic stenosis. There is no LVOT obstruction. No aortic regurgitation is present. Tricuspid Valve There is no tricuspid stenosis. There is a trace amount of tricuspid regurgitation. Right ventricular systolic pressure is normal. RVSP is 22 mm of Hg , with RA mean of 10. Pulmonic Valve There is no pulmonic valvular stenosis. There is no pulmonic valvular regurgitation. Great Vessels The aortic root is not well visualized but is probably normal size. The inferior vena cava was not visualized. Effusions There is no pericardial effusion. : CHRISTINE CANAS Lakshmi
[2019-12-02] MEDS: HYDROMORPHONE HCL 2 MG TABLET PO SCH ×6 (01:02→21:44)
[2019-12-02] MEDS: GUAIFENESIN/D-METHORPHAN (200-20 MG) SYRUP 10 ML PO PRN (01:02)
[2019-12-02] MEDS: ALBUTEROL SULFATE 0.083% NEB 2.5 MG/3 ML AMPUL NEB SCH ×4 (02:18→20:37)
[2019-12-02] MEDS: METHYLPREDNISOLONE INJ 40 MG/1 ML SDV IV SCH (05:05)
[2019-12-02] MEDS: CEFTRIAXONE 1 GM/D5W RTU 1 GM/50 ML RTUPB IV SCH (05:06)
--- NOTE | 2019-12-02 08:17 | PDOC PROGRESS REPORT ---
Subjective Progress Note for:: 12/02/19 Subjective:: Patient is having a lot of hemoptysis. Today I discontinued his Eliquis, I also texted Dr. Sullivan on my recommendation. He is having a lot of anxiety, will start Xanax today. The plan was for him to consider going home today but overnight they again had to turn his oxygen up to 4 to 5 L because of coughing and shortness of breath, desaturation. Reason For Visit: PNEUMONIA Physical Exam Vital Signs: Temp Pulse Resp BP Pulse Ox 97.5 F 71 17 150/80 H 100 12/02/19 07:18 12/02/19 07:18 12/02/19 07:18 12/02/19 07:18 12/02/19 07:18 Intake & Output 12/01/19 12/02/19 12/03/19 06:59 06:59 06:59 Intake Total 2386 1670 Output Total 2375 1275 Balance 11 395 Weight 78.7 kg 77.9 kg General appearance: PRESENT: no acute distress, well-developed, well-nourished Head exam: PRESENT: atraumatic, normocephalic Eye exam: PRESENT: conjunctiva pink, EOMI, PERRLA. ABSENT: scleral icterus Ear exam: PRESENT: normal external ear exam Mouth exam: PRESENT: moist, tongue midline Neck exam: ABSENT: carotid bruit, JVD, lymphadenopathy, thyromegaly Respiratory exam: PRESENT: clear to auscultation mike. ABSENT: rales, rhonchi, wheezes Cardiovascular exam: PRESENT: RRR. ABSENT: diastolic murmur, rubs, systolic murmur Pulses: PRESENT: normal dorsalis pedis pul Vascular exam: PRESENT: normal capillary refill GI/Abdominal exam: PRESENT: normal bowel sounds, soft. ABSENT: distended, guarding, mass, organolmegaly, rebound, tenderness Rectal exam: PRESENT: deferred Extremities exam: PRESENT: full ROM. ABSENT: calf tenderness, clubbing, pedal edema Neurological exam: PRESENT: alert, awake, oriented to person, oriented to place, oriented to time, oriented to situation, CN II-XII grossly intact. ABSENT: motor sensory deficit Psychiatric exam: PRESENT: appropriate affect, normal mood. ABSENT: homicidal ideation, suicidal ideation Skin exam: PRESENT: dry, intact, warm. ABSENT: cyanosis, rash Results Laboratory Results: 11/30/19 05:26 11/30/19 05:26 11/29/19 11/29/19 11/29/19 02:41 10:20 10:20 Creatine Kinase 45 L Troponin I 0.015 0.018 11/29/19 11/29/19 11/29/19 15:09 15:09 21:46 Creatine Kinase 53 L 42 L Troponin I 0.012 11/29/19 21:46 Creatine Kinase Troponin I < 0.012 Impressions: Chest X-Ray 11/29/19 02:17 IMPRESSION: Ill-defined patchy airspace disease left upper lobe. Soft Tissue Neck CT 11/29/19 03:49 IMPRESSION: 1. 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 For tissue diagnosis bronchoscopy could likely obtain tissue on the right. 2. No evidence of pulmonary embolus. 3. Evidence of some likely aspiration in the medial right lower lobe. 4. Evidence of likely infectious etiology in the left lung and this could be viral in nature. Imaging features can be seen with viral or COVID 19 pneumonia, though are nonspecific and can occur with a variety of infectious and noninfectious processes. [PneInd] 5. No acute abnormality in the neck. 6. CHUCKIE Kumari in the emergency department, was made aware of impression one and four by myself by phone on 11/29/2019 at 4:55 AM eastern time. Chest/Abdomen CTA 11/29/19 03:50 IMPRESSION: 1. 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 For tissue diagnosis bronchoscopy could likely obtain tissue on the right. 2. No evidence of pulmonary embolus. 3. Evidence of some likely aspiration in the medial right lower lobe. 4. Evidence of likely infectious etiology in the left lung and this could be viral in nature. Imaging features can be seen with viral or COVID 19 pneumonia, though are nonspecific and can occur with a variety of infectious and noninfectious processes. [PneInd] 5. No acute abnormality in the neck. 6. HCUCKIE Kumari in the emergency department, was made aware of impression one and four by myself by phone on 11/29/2019 at 4:55 AM eastern time. Assessment & Plan - Diagnosis (1) Lung mass Is this a current diagnosis for this admission?: Yes Plan: Hopeful biopsy soon as an outpatient. (2) Atrial fibrillation Qualifiers: Atrial fibrillation type: paroxysmal Qualified Code(s): I48.0 - Paroxysmal atrial fibrillation Is this a current diagnosis for this admission?: Yes Plan: Today I discontinue the Eliquis. I think the risks of hemoptysis outweigh the benefit in stroke reduction. I explained my assessment of the risks to the patient, and he agreed that he wanted to stop the Eliquis. We will continue aspirin alone. - Time Time Spent with patient: 35 or more minutes
[2019-12-02 08:38] LABS: ABSOLUTE LYMPHOCYTES (AUTO) 0.9 10^3/uL (0.5-4.7); ABSOLUTE MONOCYTES (AUTO) 0.5 10^3/uL (0.1-1.4); BASOPHILS % (AUTO) 0.2 % (0-2); HEMATOCRIT 43.1 % (37.9-51.0); HEMOGLOBIN 14.6 g/dL (13.5-17.0); LYMPHOCYTES % (AUTO) 6.1 % (13-45); MEAN CORPUSCULAR HEMOGLOBIN 29.4 pg (27.0-33.4); MEAN CORPUSCULAR HGB CONC 33.9 g/dL (32.0-36.0); MEAN CORPUSCULAR VOLUME 87 fl (80-97); MONOCYTES % (AUTO) 3.2 % (3-13); PLATELET COUNT 330 10^3/uL (150-450); RED BLOOD COUNT 4.96 10^6/uL (4.35-5.55); RED CELL DISTRIBUTION WIDTH 14.5 % (11.5-14.0); SEGMENTED NEUTROPHILS % (AUTO) 90.5 % (42-78); TOTAL CELLS COUNTED % (AUTO) 100 %; WHITE BLOOD COUNT 14.3 10^3/uL (4.0-10.5)
[2019-12-02 09:11] LABS: ALBUMIN 4.2 g/dL (3.5-5.0); ALKALINE PHOSPHATASE 96 U/L (38-126); ANION GAP 10 (5-19); ASPARTATE AMINO TRANSFERASE 32 U/L (17-59); BILIRUBIN,DIRECT 0.5 mg/dL (0.0-0.4); BILIRUBIN,TOTAL 0.6 mg/dL (0.2-1.3); BLOOD UREA NITROGEN 19 mg/dL (7-20); CALCIUM 10.1 mg/dL (8.4-10.2); CARBON DIOXIDE 25 mmol/L (22-30); CHLORIDE 101 mmol/L (98-107); GLUCOSE 112 mg/dL (75-110); POTASSIUM 5.5 mmol/L (3.6-5.0); TOTAL PROTEIN 7.4 g/dL (6.3-8.2)
--- NOTE | 2019-12-02 09:58 | PDOC PROGRESS REPORT ---
Subjective Progress Note for:: 12/02/19 Subjective:: 59 year old male with history of COPD, chronic smoker, history of heart attack with multiple stents came to the emergency room with complaint of increasing shortness of breath. Work-up in the emergency room indicates left-sided pneumonia and also possible left upper middle lobe carcinoma. Consultation with oncology was done. Coronavirus testing is pending. Patient denies any fever denies any chills. Complains of dry cough. Wants to be a full code agreed to stay in the hospital for further management. 11/30/1917-75-yglo-old male with history of COPD not on home oxygen, chronic smoker history of coronary artery disease with multiple stent placements admitted with COPD exacerbation and right-sided pneumonia. CT scan suggestive of lung cancer oncology consult was done. Patient is doing well his heart rate went up to 130s 140s since last night. Discussed he case with Dr. Howell he recommended to give a 0.25 mg IV digoxin at this time. Patient is comfortably in the bed communicating well. Not in distress. 12/01/[id number]-rjmo-old male admitted with COPD exacerbation and community- acquired pneumonia. Also had A. fib with RVR given digoxin 0.25mg dose. Rate is controlled now. Patient has history of paroxysmal A. fib. He was started on Eliquis 5 mg twice a day. Plan is to discontinue his aspirin and Plavix today. Patient agreed to stay in the hospital for another day. 12/02/2019-patient is coughing up bright-colored blood plan is to discontinue Eliquis and to continue aspirin at this time. Patient is on oxygen supplementations pulse ox is 98% on 3 L. Expressing desire to go home. In my opinion he may need to stay at least another day to continue IV antibiotic therapy. He may also need home oxygen. Reason For Visit: PNEUMONIA Physical Exam Vital Signs: Temp Pulse Resp BP Pulse Ox 97.5 F 88 16 150/80 H 96 12/02/19 07:18 12/02/19 08:23 12/02/19 08:23 12/02/19 07:18 12/02/19 08:23 Intake & Output 12/01/19 12/02/19 12/03/19 06:59 06:59 06:59 Intake Total 7191 6950 Output Total 2236 1275 Balance 11 395 Weight 78.7 kg 77.9 kg General appearance: PRESENT: no acute distress, well-developed Head exam: PRESENT: atraumatic Eye exam: PRESENT: PERRLA Teeth exam: PRESENT: poor dentation Neck exam: ABSENT: carotid bruit, JVD, lymphadenopathy, thyromegaly Respiratory exam: PRESENT: decreased breath sounds Cardiovascular exam: PRESENT: RRR. ABSENT: diastolic murmur, rubs, systolic murmur GI/Abdominal exam: PRESENT: normal bowel sounds, soft. ABSENT: distended, guarding, mass, organolmegaly, rebound, tenderness Rectal exam: PRESENT: deferred Extremities exam: PRESENT: full ROM. ABSENT: calf tenderness, clubbing, pedal edema Neurological exam: PRESENT: alert, awake, oriented to person, oriented to place, oriented to time, oriented to situation, CN II-XII grossly intact. ABSENT: motor sensory deficit Psychiatric exam: PRESENT: appropriate affect, normal mood. ABSENT: homicidal ideation, suicidal ideation Results Laboratory Results: 12/02/19 08:23 12/02/19 08:23 12/02/19 12/02/19 08:23 08:23 WBC 14.3 H RBC 4.96 Hgb 14.6 Hct 43.1 MCV 87 MCH 29.4 MCHC 33.9 RDW 14.5 H Plt Count 330 Seg Neutrophils % 90.5 H Sodium 136.3 L Potassium 5.5 H Chloride 101 Carbon Dioxide 25 Anion Gap 10 BUN 19 Creatinine 0.65 Est GFR ( Amer) > 60 Glucose 112 H Calcium 10.1 Magnesium 2.4 H Total Bilirubin 0.6 AST 32 Alkaline Phosphatase 96 Total Protein 7.4 Albumin 4.2 11/29/19 11/29/19 11/29/19 02:41 10:20 10:20 Creatine Kinase 45 L Troponin I 0.015 0.018 11/29/19 11/29/19 11/29/19 15:09 15:09 21:46 Creatine Kinase 53 L 42 L Troponin I 0.012 11/29/19 21:46 Creatine Kinase Troponin I < 0.012 Impressions: Chest X-Ray 11/29/19 02:17 IMPRESSION: Ill-defined patchy airspace disease left upper lobe. Soft Tissue Neck CT 11/29/19 03:49 IMPRESSION: 1. 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 For tissue diagnosis bronchoscopy could likely obtain tissue on the right. 2. No evidence of pulmonary embolus. 3. Evidence of some likely aspiration in the medial right lower lobe. 4. Evidence of likely infectious etiology in the left lung and this could be viral in nature. Imaging features can be seen with viral or COVID 19 pneumonia, though are nonspecific and can occur with a variety of infectious and noninfectious processes. [PneInd] 5. No acute abnormality in the neck. 6. CHUCKIE Kumari in the emergency department, was made aware of impression one and four by myself by phone on 11/29/2019 at 4:55 AM eastern time. Chest/Abdomen CTA 11/29/19 03:50 IMPRESSION: 1. 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 For tissue diagnosis bronchoscopy could likely obtain tissue on the right. 2. No evidence of pulmonary embolus. 3. Evidence of some likely aspiration in the medial right lower lobe. 4. Evidence of likely infectious etiology in the left lung and this could be viral in nature. Imaging features can be seen with viral or COVID 19 pneumonia, though are nonspecific and can occur with a variety of infectious and noninfectious processes. [PneInd] 5. No acute abnormality in the neck. 6. CHUCKIE Kumari in the emergency department, was made aware of impression one and four by myself by phone on 11/29/2019 at 4:55 AM eastern time. Assessment and Plan - Diagnosis (1) COPD exacerbation Is this a current diagnosis for this admission?: Yes Plan: 11/29/2019-patient is going to be admitted to [facility] as inpatient for COPD exacerbation. Started on IV Rocephin, IV Zithromax. Coronavirus testing is pending. Continue albuterol nebulizations. Provide nicotine patch. GI prophylaxis DVT prophylaxis needed. To start him on IV Solu-Medrol. Patient is not on home oxygen. Provide oxygen supplementations. 11/30/2019-patient admitted with COPD exacerbation. Receiving IV antibiotic therapy, and IV Solu-Medrol. He is also receiving DuoNeb nebulizations. Pulse ox is 94% on 2 L .. pt is doing better 12/01/19-patient admitted with COPD exacerbation. Getting IV Solu-Medrol 40 mg every 8 hours on nebulizer treatments. Pulse ox is 98% on 6 L this morning. Plan is to continue to provide supportive care and is receiving IV antibiotic therapy Rocephin and Zithromax. Blood cultures are negative so far. 12/02/2019-patient admitted with severe PD exacerbation on IV Solu-Medrol. Pulse ox is 98% on 4 L. Also coughing up bright-colored blood. Plan is to discontinue Eliquis continue aspirin at this time. Patient may need home oxygen supplementation. (2) Pneumonia Qualifiers: Pneumonia type: due to unspecified organism Laterality: unspecified laterality Lung location: unspecified part of lung Qualified Code(s): J18.9 - Pneumonia, unspecified organism Is this a current diagnosis for this admission?: Yes Plan: 11/29/19-patient admitted with community-acquired pneumonia. Sputum cultures blood cultures are requested started on IV Rocephin and Zithromax. Coronavirus testing is pending. 11/30/2019-patient admitted with community-acquired pneumonia blood cultures sputum cultures are pending presently on IV Rocephin and Zithromax. covid test is negative. 12/01/2019-covid test is negative. Blood cultures sputum cultures are negative so far. Plan is to continue IV Rocephin and Zithromax at this time. 120-coronavirus testing is negative. Blood culture and sputum cultures are negative. Plan is to continue IV Rocephin and Zithromax at this time. (3) Coronary artery disease Qualifiers: Coronary Disease-Associated Artery/Lesion type: lytton artery Associated a ngina: with unspecified angina Is this a current diagnosis for this admission?: No Plan: 11/29/2019-patient is given the history of coronary artery disease status post stent placements. Denies any chest pains at the time of admission 11/30/2019-patient has history of coronary artery disease status post stent placement. Denies any chest pains. Troponins are negative during this hospital stay. 12/01/2019-patient has history of coronary artery disease status post stent placement. To discontinue aspirin and Plavix and patient is presently on Eliquis [address] twice daily. Dr. Howell is on board. (4) Lung mass Is this a current diagnosis for this admission?: Yes Plan: 11/29/2019-CT scan of the chest suggestive of bronchogenic carcinoma involving the left upper and middle lobe. Consultation with Dr. Ford is requested. 11/30/2019-CT scan suggestive of bronchogenic carcinoma plan is discussed with Dr. Ford, he is making arrangements for the patient to follow-up with pulmonology in [place] for bronchoscopy as an outpatient. (5) Tobacco abuse Is this a current diagnosis for this admission?: No Plan: 11/29/2019-patient has history of chronic smoking for more than 50 years. Smoking consult was provided to start him on nicotine patch 21 mcg daily. (6) COVID-19 Is this a current diagnosis for this admission?: Yes Plan: 11/29/2019-patient came in with complaints of shortness of breath associated with fatigue and weakness coronavirus testing is pending. [id number] came back negative. (7) Atrial fibrillation Qualifiers: Atrial fibrillation type: paroxysmal Qualified Code(s): I48.0 - Paroxysmal atrial fibrillation Is this a current diagnosis for this admission?: Yes Plan: 12/10/2019-patient has history of atrial fib not on anticoagulation. Consultation Dr. Howell is requested. Heart rate is around 120 this morning is fluctuating between 120 to1 30 to give digoxin 0.25 mg IV 1 dose. 12/01/2019-patient is on Eliquis 5 mg p.o. twice daily. On examination in sinus rhythm. Heart rate is in the 70s. Plan is to continue metoprolol 25 mg p.o. twice daily. Patient has history of paroxysmal atrial fibrillation. 12/02/2019-patient has history of paroxysmal atrial fibrillation coughing of blood clot blood plan is to discontinue Eliquis and to continue aspirin at this time. Patient understood the risks of not taking Eliquis but at the same time is afraid of coughing of blood. - Time Anticipated Discharge Disposition: Home, Self Care Anticipated Discharge Timeframe: within 24 hours
[2019-12-02] MEDS ORDERED: SODIUM POLYSTYRENE SULFONATE 15 GM/60 ML PO ONE (10:00)
[2019-12-02] MEDS: FAMOTIDINE 20 MG TABLET PO SCH ×2 (10:24→21:44)
[2019-12-02] MEDS: DOCUSATE SODIUM 100 MG CAPSULE PO SCH ×2 (10:24→17:44)
[2019-12-02] MEDS: ALPRAZOLAM 0.5 MG TABLET PO SCH ×3 (10:24→21:44)
[2019-12-02] MEDS: METOPROLOL TARTRATE 25 MG TABLET PO SCH ×2 (10:24→21:44)
[2019-12-02] MEDS: AZITHROMYCIN 500 MG in DEXTROSE 5%-WATER 250 ML IV SCH (10:24)
[2019-12-02] MEDS: LISINOPRIL 5 MG TABLET PO SCH (10:36)
[2019-12-02] MEDS: LISINOPRIL 10 MG TABLET PO SCH (15:51)
--- NOTE | 2019-12-02 19:26 | Progress Note ---
Provider Note Provider Note: CARDIOLOGY PROGRESS NOTE by Dr. Christine Sullivan on 12/02/2019. SUBJECTIVE: The patient has been having increased cough and also having hemoptysis. Hence we will stop the patient's Eliquis. This is also the patient's wishes. He still has some shortness of breath. There is no anginal symptoms. There is no PND or orthopnea. There is no leg edema. There is no ventricular is missing on the monitor. PHYSICAL EXAMINATION. The patient is well-built. In no acute distress Selected Entries 12/02/19 12/02/19 16:42 17:00 Temperature 97.4 F Temperature Oral Source Pulse Rate 76 Heart Rate ( 87 Monitors) Respiratory 20 Rate Blood Pressure 146/73 H Blood Pressure 97 Mean BP Location Right Arm BP Position Supine O2 Sat by Pulse 99 Oximetry Oxygen Flow 3.00 Rate Oxygen Delivery Nasal Cannula Method HEAD: Is atraumatic normocephalic. EYES: Pupils are equal round regular reactive to light accommodation. Extraocular movements are normal. There is no conjunctival pallor. There is no scleral icterus. EARS: Tympanic membranes are intact. External auditory canals are clear. NOSE: There is no deviated nasal septum. There is no inflammation nasal mucous membrane. MOUTH: Mucous membranes of the mouth are moist tongue is moist. There is no ulcers. THROAT: There is no redness of the oropharynx. There is no exudates. SKIN: There is no skin rashes there is no petechia or ecchymosis there is no skin lesions. NECK: Is supple there is no JVD. Carotids are equal there is no bruit. There is no lymphadenopathy. There is no goiter. There is no accessory muscle respiration use. Trachea central LUNGS: There is diminished air entry and prolonged expiration. There is a few dry crackles and rhonchi in the left upper lobe. There is a localized left upper lobe wheezing. Is also localized wheezing and rhonchi in the right mid zone. On percussion there is hyperresonance throughout. On palpation there is no chest wall tenderness. Heart: S1-S2 is heard. S1 is of normal intensity now there is no S3 gallop there is no S4 gallop. There is systolic murmur left sternal border and the apex there is no rub. ABDOMEN: Soft. Nontender there is no hepatosplenomegaly. Bowel sounds are well heard. EXTREMITIES: Peripheral pulses well felt. There is no edema. Leg pulses are well felt. There is no DVT or cellulitis. There is no sinus clubbing. Capillary refill is normal. SALES DEVELOPMENT REPRESENTATIVE: The patient is conscious awake simone rt oriented x3 with no focal deficits. PSYCHIATRIC: The patient judgment insight are intact his affect is normal. EKG: Shows sinus rhythm. Normal EKG Labs- Entire Visit 11/29/19 11/29/19 11/29/19 02:41 02:41 02:41 WBC 14.3 H RBC 4.84 Hgb 14.4 Hct 41.3 MCV 85 MCH 29.9 MCHC 35.0 RDW 14.5 H Plt Count 315 Lymph % (Auto) 9.3 L [place] % (Auto) 6.3 Eos % (Auto) 1.3 Baso % (Auto) 0.6 Absolute Neuts (auto) 11.8 H Absolute Lymphs (auto) 1.3 Absolute Monos (auto) 0.9 Absolute Eos (auto) 0.2 Absolute Basos (auto) 0.1 Seg Neutrophils % 82.5 H PT 13.7 INR 1.03 APTT 29.2 VBG pH VBG pCO2 VBG HCO3 VBG Base Excess Sodium 129.5 L Potassium 4.6 Chloride 97 L Carbon Dioxide 22 Anion Gap 11 BUN 15 Creatinine 0.75 Est GFR ( Amer) > 60 Est GFR (MDRD) Non-Af > 60 Glucose 113 H Hemoglobin A1c % Calcium 9.4 Magnesium Total Bilirubin 0.5 Direct Bilirubin 0.3 Neonat Total Bilirubin Not Reportable Neonat Direct Bilirubin Not Reportable Neonat Indirect Bili Not Reportable AST 22 ALT 12 Alkaline Phosphatase 101 Creatine Kinase Troponin I Total Protein 6.6 Albumin 3.6 Triglycerides Cholesterol LDL Cholesterol Direct VLDL Cholesterol HDL Cholesterol TSH COVID-19 Source COVID-19 ([facility]) 11/29/19 11/29/19 11/29/19 02:41 02:41 05:49 WBC RBC Hgb Hct MCV MCH MCHC RDW Plt Count Lymph % (Auto) [place] % (Auto) Eos % (Auto) Baso % (Auto) Absolute Neuts (auto) Absolute Lymphs (auto) Absolute Monos (auto) Absolute Eos (auto) Absolute Basos (auto) Seg Neutrophils % PT INR APTT VBG pH 7.41 VBG pCO2 33.2 L VBG HCO3 20.7 VBG Base Excess -3.0 Sodium Potassium Chloride Carbon Dioxide Anion Gap BUN Creatinine Est GFR ( Amer) Est GFR (MDRD) Non-Af Glucose Hemoglobin A1c % Calcium Magnesium Total Bilirubin Direct Bilirubin Neonat Total Bilirubin Neonat Direct Bilirubin Neonat Indirect Bili AST ALT Alkaline Phosphatase Creatine Kinase Troponin I 0.015 Total Protein Albumin Triglycerides Cholesterol LDL Cholesterol Direct VLDL Cholesterol HDL Cholesterol TSH COVID-19 Source NASOPHARYNGEAL COVID-19 ([facility]) NOT DETECTED 11/29/19 11/29/19 11/29/19 10:20 10:20 15:09 WBC RBC Hgb Hct MCV MCH MCHC RDW Plt Count Lymph % (Auto) [place] % (Auto) Eos % (Auto) Baso % (Auto) Absolute Neuts (auto) Absolute Lymphs (auto) Absolute Monos (auto) Absolute Eos (auto) Absolute Basos (auto) Seg Neutrophils % PT INR APTT VBG pH VBG pCO2 VBG HCO3 VBG Base Excess Sodium Potassium Chloride Carbon Dioxide Anion Gap BUN Creatinine Est GFR ( Amer) Est GFR (MDRD) Non-Af Glucose Hemoglobin A1c % Calcium Magnesium Total Bilirubin Direct Bilirubin Neonat Total Bilirubin Neonat Direct Bilirubin Neonat Indirect Bili AST ALT Alkaline Phosphatase Creatine Kinase 45 L 53 L Troponin I 0.018 Total Protein Albumin Triglycerides Cholesterol LDL Cholesterol Direct VLDL Cholesterol HDL Cholesterol TSH COVID-19 Source COVID-19 ([facility]) 11/29/19 11/29/19 11/29/19 15:09 21:46 21:46 WBC RBC Hgb Hct MCV MCH MCHC RDW Plt Count Lymph % (Auto) [place] % (Auto) Eos % (Auto) Baso % (Auto) Absolute Neuts (auto) Absolute Lymphs (auto) Absolute Monos (auto) Absolute Eos (auto) Absolute Basos (auto) Seg Neutrophils % PT INR APTT VBG pH VBG pCO2 VBG HCO3 VBG Base Excess Sodium Potassium Chloride Carbon Dioxide Anion Gap BUN Creatinine Est GFR ( Amer) Est GFR (MDRD) Non-Af Glucose Hemoglobin A1c % Calcium Magnesium Total Bilirubin Direct Bilirubin Neonat Total Bilirubin Neonat Direct Bilirubin Neonat Indirect Bili AST ALT Alkaline Phosphatase Creatine Kinase 42 L Troponin I 0.012 < 0.012 Total Protein Albumin Triglycerides Cholesterol LDL Cholesterol Direct VLDL Cholesterol HDL Cholesterol TSH COVID-19 Source COVID-19 ([facility]) 11/30/19 11/30/19 11/30/19 05:26 05:26 05:26 WBC 17.2 H RBC 4.55 Hgb 13.6 Hct 39.5 MCV 87 MCH 29.9 MCHC 34.4 RDW 14.2 H Plt Count 337 Lymph % (Auto) 5.7 L [place] % (Auto) 4.6 Eos % (Auto) 0.0 Baso % (Auto) 0.1 Absolute Neuts (auto) 15.4 H Absolute Lymphs (auto) 1.0 Absolute Monos (auto) 0.8 Absolute Eos (auto) 0.0 Absolute Basos (auto) 0.0 Seg Neutrophils % 89.6 H PT INR APTT VBG pH VBG pCO2 VBG HCO3 VBG Base Excess Sodium 132.8 L Potassium 5.0 Chloride 100 Carbon Dioxide 23 Anion Gap 10 BUN 15 Creatinine 0.58 Est GFR ( Amer) > 60 Est GFR (MDRD) Non-Af > 60 Glucose 128 H Hemoglobin A1c % 5.8 Calcium 9.7 Magnesium 2.2 Total Bilirubin 0.5 Direct Bilirubin 0.4 Neonat Total Bilirubin Not Reportable Neonat Direct Bilirubin Not Reportable Neonat Indirect Bili Not Reportable AST 21 ALT 11 Alkaline Phosphatase 75 Creatine Kinase Troponin I Total Protein 5.9 L Albumin 3.4 L Triglycerides 86 Cholesterol 169.95 LDL Cholesterol Direct 120 H VLDL Cholesterol 17.0 HDL Cholesterol 39 L TSH COVID-19 Source COVID-19 ([facility]) 11/30/19 12/02/19 12/02/19 05:26 08:23 08:23 WBC 14.3 H RBC 4.96 Hgb 14.6 Hct 43.1 MCV 87 MCH 29.4 MCHC 33.9 RDW 14.5 H Plt Count 330 Lymph % (Auto) 6.1 L [place] % (Auto) 3.2 Eos % (Auto) 0.0 Baso % (Auto) 0.2 Absolute Neuts (auto) 13.0 H Absolute Lymphs (auto) 0.9 Absolute Monos (auto) 0.5 Absolute Eos (auto) 0.0 Absolute Basos (auto) 0.0 Seg Neutrophils % 90.5 H PT INR APTT VBG pH VBG pCO2 VBG HCO3 VBG Base Excess Sodium 136.3 L Potassium 5.5 H Chloride 101 Carbon Dioxide 25 Anion Gap 10 BUN 19 Creatinine 0.65 Est GFR ( Amer) > 60 Est GFR (MDRD) Non-Af > 60 Glucose 112 H Hemoglobin A1c % Calcium 10.1 Magnesium 2.4 H Total Bilirubin 0.6 Direct Bilirubin 0.5 H Neonat Total Bilirubin Not Reportable Neonat Direct Bilirubin Not Reportable Neonat Indirect Bili Not Reportable AST 32 ALT 19 Alkaline Phosphatase 96 Creatine Kinase Troponin I Total Protein 7.4 Albumin 4.2 Triglycerides Cholesterol LDL Cholesterol Direct VLDL Cholesterol HDL Cholesterol TSH 0.58 COVID-19 Source COVID-19 ([facility]) Chest X-Ray 11/29/19 02:17 IMPRESSION: Ill-defined patchy airspace disease left upper lobe. Soft Tissue Neck CT 11/29/19 03:49 IMPRESSION: 1. 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 For tissue diagnosis bronchoscopy could likely obtain tissue on the right. 2. No evidence of pulmonary embolus. 3. Evidence of some likely aspiration in the medial right lower lobe. 4. Evidence of likely infectious etiology in the left lung and this could be viral in nature. Imaging features can be seen with viral or COVID 19 pneumonia, though are nonspecific and can occur with a variety of infectious and noninfectious processes. [PneInd] 5. No acute abnormality in the neck. 6. CHUCKIE Kumari in the emergency department, was made aware of impression one and four by myself by phone on 11/29/2019 at 4:55 AM eastern time. Chest/Abdomen CTA 11/29/19 03:50 IMPRESSION: 1. 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 For tissue diagnosis bronchoscopy could likely obtain tissue on the right. 2. No evidence of pulmonary embolus. 3. Evidence of some likely aspiration in the medial right lower lobe. 4. Evidence of likely infectious etiology in the left lung and this could be viral in nature. Imaging features can be seen with viral or COVID 19 pneumonia, though are nonspecific and can occur with a variety of infectious and noninfectious processes. [PneInd] 5. No acute abnormality in the neck. 6. CHUCKIE Kumari in the emergency department, was made aware of impression one and four by myself by phone on 11/29/2019 at 4:55 AM eastern time. IMPRESSION/RECOMMENDATION: 1. PAROXYSMAL atrial flutter/fibrillation: At present the monitor shows sinus rhythm. Patient with hemoptysis, hence patient's Eliquis has been discontinued. We will start the patient on aspirin. Patient aware of the risks of stroke due to lack of chronic anticoagulation. 2. Hemoptysis: At present seems to have been less so. The patient's Eliquis has been held. 3. Left upper lobe pneumonia: Continue antibiotics 4. Most likely bronchogenic cancer/lung cancer: Oncology on the case. 5. Coronary artery disease. History of LAD stent in 2013. No anginal symptoms. Later would recommend that the patient have a repeat IV Lexiscan Cardiolite stress test. We will stop the patient's Plavix since the patient is on Eliquis.. 6. Hypertension: Blood pressure well controlled. 7. COPD: At present no acute exacerbation 8. History of tobacco abuse disorder. Tobacco cessation counseling given 3 minutes spent on this patient. The patient's echocardiogram is not a very good study but shows normal LV ejection fraction and no significant pulmonary hypertension. There is no pericardial effusion. Medications reviewed. Medications adjusted medical decision making and management plan discussed with attending provider on the case. Discussed with oncologist Dr. Ford. Medical decision making is of high complexity. 40 minutes spent on this patient more than 50% time spent time direct patient care.
[2019-12-03] MEDS: ALBUTEROL SULFATE 0.083% NEB 2.5 MG/3 ML AMPUL NEB SCH ×2 (02:07→08:15)
[2019-12-03] MEDS: HYDROMORPHONE HCL 2 MG TABLET PO SCH ×6 (02:40→22:11)
[2019-12-03] MEDS: CEFTRIAXONE 1 GM/D5W RTU 1 GM/50 ML RTUPB IV SCH (05:53)
[2019-12-03] MEDS: ALPRAZOLAM 0.5 MG TABLET PO SCH ×3 (05:53→22:12)
[2019-12-03 07:07] LABS: ABSOLUTE EOSINOPHILS # (AUTO) 0.1 10^3/uL (0.0-0.6); ABSOLUTE LYMPHOCYTES (AUTO) 3.4 10^3/uL (0.5-4.7); ABSOLUTE MONOCYTES (AUTO) 1.1 10^3/uL (0.1-1.4); ABSOLUTE NEUT (AUTO) 8.6 10^3/uL (1.7-8.2); BASOPHILS % (AUTO) 0.4 % (0-2); EOSINOPHILS % (AUTO) 0.6 % (0-6); HEMATOCRIT 38.1 % (37.9-51.0); LYMPHOCYTES % (AUTO) 25.6 % (13-45); MEAN CORPUSCULAR HEMOGLOBIN 29.5 pg (27.0-33.4); MEAN CORPUSCULAR HGB CONC 34.1 g/dL (32.0-36.0); MEAN CORPUSCULAR VOLUME 86 fl (80-97); MONOCYTES % (AUTO) 8.6 % (3-13); PLATELET COUNT 346 10^3/uL (150-450); RED BLOOD COUNT 4.41 10^6/uL (4.35-5.55); RED CELL DISTRIBUTION WIDTH 14.5 % (11.5-14.0); SEGMENTED NEUTROPHILS % (AUTO) 64.8 % (42-78); TOTAL CELLS COUNTED % (AUTO) 100 %; WHITE BLOOD COUNT 13.2 10^3/uL (4.0-10.5)
[2019-12-03 07:09] LABS: ALBUMIN 3.4 g/dL (3.5-5.0); ALKALINE PHOSPHATASE 67 U/L (38-126); ANION GAP 10 (5-19); ASPARTATE AMINO TRANSFERASE 24 U/L (17-59); BILIRUBIN,DIRECT 0.4 mg/dL (0.0-0.4); BILIRUBIN,TOTAL 0.5 mg/dL (0.2-1.3); BLOOD UREA NITROGEN 22 mg/dL (7-20); CALCIUM 9.3 mg/dL (8.4-10.2); CARBON DIOXIDE 27 mmol/L (22-30); CHLORIDE 99 mmol/L (98-107); GLUCOSE 88 mg/dL (75-110); POTASSIUM 4.8 mmol/L (3.6-5.0); TOTAL PROTEIN 6.1 g/dL (6.3-8.2)
[2019-12-03] MEDS: METOPROLOL TARTRATE 25 MG TABLET PO SCH (09:18)
[2019-12-03] MEDS: METOPROLOL TARTRATE PF/INJ 5 MG/5 ML SDV IV PRN (09:18)
[2019-12-03] MEDS: DOCUSATE SODIUM 100 MG CAPSULE PO SCH ×2 (09:18→18:14)
[2019-12-03] MEDS: ASPIRIN 325 MG TABLET PO SCH (09:18)
[2019-12-03] MEDS: LISINOPRIL 5 MG TABLET PO SCH (09:19)
[2019-12-03] MEDS: FAMOTIDINE 20 MG TABLET PO SCH ×2 (09:19→22:12)
[2019-12-03] MEDS ORDERED: METHYLPREDNISOLONE INJ 40 MG/1 ML SDV IV SCH (10:00)
[2019-12-03] MEDS ORDERED: DIGOXIN INJ 0.5 MG/2 ML AMPULE IV ONE ×2 (11:00→15:00)
[2019-12-03] MEDS: AZITHROMYCIN 500 MG in DEXTROSE 5%-WATER 250 ML IV SCH (11:00)
[2019-12-03] MEDS: LEVALBUTEROL HCL NEB 0.63 MG/3 ML AMPUL NEB SCH ×2 (13:35→20:57)
--- NOTE | 2019-12-03 14:38 | Progress Note ---
Provider Note Provider Note: CARDIOLOGY PROGRESS NOTE by Dr. Christine Sullivan on 12/03/2019. Subjective: The patient after breathing treatment went back into atrial fibrillation with rapid ventricular response. Patient is given a dose of digoxin since the patient's earlier Lopressor did not work. This brought the heart rate down a little. The patient does appear to be short of breath and looks pale. He has a cough productive of yellowish sputum but there is no benson hemoptysis. There he denies any chest pain discomfort. There is orthopnea but no PND. There is no anginal symptoms. There is no TIA CVA symptoms. A Physical EXAMINATION: The patient is a frail build. Appears to be in mild respiratory distress. There is no accessory muscle respiration use. Selected Entries 12/03/19 12/03/19 11:36 14:00 Temperature 97.8 F Pulse Rate 118 H Respiratory 18 Rate Blood Pressure 102/58 L Blood Pressure 72 Mean BP Location Right Arm BP Position Sitting O2 Sat by Pulse 97 Oximetry Oxygen Flow 2.00 Rate Oxygen Delivery Nasal Cannula Method Head: Is atraumatic normocephalic. EYES: Pupils are equal round regular reactive to light and accommodation. Extraocular movements are normal. There is no conjunctival pallor. There is no scleral icterus. EARS: Tympanic membranes are intact. External auditory canals are clear. NOSE: There is no deviated nasal septum. There is no inflammation nasal mucous membrane. MOUTH: Mucous membranes of the mouth are moist tongue is moist. There is no ulcers. THROAT: There is no redness of the oropharynx. There is no exudates. SKIN: There is no skin rashes there is no petechia or ecchymosis there is no skin lesions. NECK: Is supple there is no JVD. Carotids are equal there is no bruit. There is no lymphadenopathy. There is no goiter. There is no accessory muscle respiration use. Trachea central LUNGS: There is diminished air entry and prolonged expiration. There is a few dry crackles right upper lobe and scattered rhonchi and wheezing. There is no rales of CHF. On percussion there is hyperresonance throughout. On palpation there is no chest wall tenderness. Heart: S1-S2 is heard. S1 is of normal intensity now there is no S3 gallop there is no S4 gallop. There is systolic murmur left sternal border and the apex there is no rub. ABDOMEN: Soft. Nontender there is no hepatosplenomegaly. Bowel sounds are well heard. EXTREMITIES: Peripheral pulses well felt. There is no edema. Leg pulses are well felt. There is no DVT or cellulitis. There is no sinus clubbing. Capillary refill is normal. 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 PSYCHIATRIC: The patient judgment insight are intact his affect is normal. Labs- All tests 24 hr 12/03/19 12/03/19 05:27 05:27 WBC 13.2 H RBC 4.41 Hgb 13.0 L Hct 38.1 MCV 86 MCH 29.5 MCHC 34.1 RDW 14.5 H Plt Count 346 Lymph % (Auto) 25.6 [place] % (Auto) 8.6 Eos % (Auto) 0.6 Baso % (Auto) 0.4 Absolute Neuts (auto) 8.6 H Absolute Lymphs (auto) 3.4 Absolute Monos (auto) 1.1 Absolute Eos (auto) 0.1 Absolute Basos (auto) 0.0 Seg Neutrophils % 64.8 Sodium 135.5 L Potassium 4.8 Chloride 99 Carbon Dioxide 27 Anion Gap 10 BUN 22 H Creatinine 0.72 Est GFR ( Amer) > 60 Est GFR (MDRD) Non-Af > 60 Glucose 88 Calcium 9.3 Magnesium 2.3 Total Bilirubin 0.5 Direct Bilirubin 0.4 Neonat Total Bilirubin Not Reportable Neonat Direct Bilirubin Not Reportable Neonat Indirect Bili Not Reportable AST 24 ALT 18 Alkaline Phosphatase 67 Total Protein 6.1 L Albumin 3.4 L Chest X-Ray 11/29/19 02:17 IMPRESSION: Ill-defined patchy airspace disease left upper lobe. Soft Tissue Neck CT 11/29/19 03:49 IMPRESSION: 1. 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 For tissue diagnosis bronchoscopy could likely obtain tissue on the right. 2. No evidence of pulmonary embolus. 3. Evidence of some likely aspiration in the medial right lower lobe. 4. Evidence of likely infectious etiology in the left lung and this could be viral in nature. Imaging features can be seen with viral or COVID 19 pneumonia, though are nonspecific and can occur with a variety of infectious and noninfectious processes. [PneInd] 5. No acute abnormality in the neck. 6. CHUCKIE Kumari in the emergency department, was made aware of impression one and four by myself by phone on 11/29/2019 at 4:55 AM eastern time. Chest/Abdomen CTA 11/29/19 03:50 IMPRESSION: 1. 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 For tissue diagnosis bronchoscopy could likely obtain tissue on the right. 2. No evidence of pulmonary embolus. 3. Evidence of some likely aspiration in the medial right lower lobe. 4. Evidence of likely infectious etiology in the left lung and this could be viral in nature. Imaging features can be seen with viral or COVID 19 pneumonia, though are nonspecific and can occur with a variety of infectious and noninfectious processes. [PneInd] 5. No acute abnormality in the neck. 6. CHUCKIE Kumari in the emergency department, was made aware of impression one and four by myself by phone on 11/29/2019 at 4:55 AM eastern time. EKG: Atrial fibrillation with ventricular response of 1 1 6 bpm. IMPRESSION/RECOMMENDATION: 1. PAROXYSMAL atrial flutter/fibrillation: Patient back into atrial fibrillation with rapid ventricular response post respiratory therapy with albuterol. The patient was given extra dose of digoxin which did bring the heart rate down into the 1 teens. His him Eliquis had to be held because of hemoptysis. This is stable. Also will change the patient's albuterol nebulizer treatments to Xopenex medical treatments. 2. Hemoptysis: This is improved. The patient's Eliquis has been discontinued. Will re-institute Lovenox 40 mg subcutaneous daily for DVT prophylaxis. 3. Left upper lobe pneumonia: Continue antibiotics 4. Most likely bronchogenic cancer/lung cancer: Oncology on the case. 5. Coronary artery disease. History of LAD stent in 2013. No anginal symptoms. Later would recommend that the patient have a repeat IV Lexiscan Cardiolite stress test. We will stop the patient's Plavix since the patient is on Eliquis.. 6. Hypertension: Blood pressure well controlled. 7. COPD: At present no acute exacerbation 8. History of tobacco abuse disorder. Tobacco cessation counseling given 3 minutes spent on this patient. Medications reviewed medications adjusted. Medication changes made. Medical regimen making is of high complexity. Medical regimen and management plan discussed with attending provider. Discussed the patient's clinical condition with the patient and the patient's . 40 minutes spent as patient more than 50% time spent in direct patient care. Will follow.
[2019-12-03] MEDS ORDERED: DIGOXIN INJ 0.5 MG/2 ML AMPULE ONE (14:41)
[2019-12-03] MEDS: ENOXAPARIN SODIUM INJ 40 MG/0.4 ML DISP.SYRIN SUBCUT SCH (15:10)
--- NOTE | 2019-12-03 19:29 | PDOC PROGRESS REPORT ---
Subjective Progress Note for:: 12/03/19 Subjective:: Patient went into RVR today. He was not having any chest pain or shortness of breath but states his breathing treatments were causing his tachycardia. He was disappointed that I did not let him go home today. His heart rate did bounce to 170s and required Lopressor and was put on IV digoxin. Reason For Visit: PNEUMONIA Physical Exam Vital Signs: Temp Pulse Resp BP Pulse Ox 97.8 F 89 18 95/67 L 95 12/03/19 15:19 12/03/19 15:19 12/03/19 15:19 12/03/19 15:19 12/03/19 15:19 Intake & Output 12/02/19 12/03/19 12/04/19 06:59 06:59 06:59 Intake Total 1670 1750 1810 Output Total 1275 550 Balance 395 1200 1810 Weight 77.9 kg 77.8 kg General appearance: PRESENT: no acute distress, cooperative Neck exam: ABSENT: JVD Respiratory exam: PRESENT: symmetrical, unlabored, wheezes. ABSENT: tachypnea Cardiovascular exam: PRESENT: irregular rhythm, +S1, +S2, tachycardia Neurological exam: PRESENT: alert, awake Results Laboratory Results: 12/03/19 05:27 12/03/19 05:27 12/03/19 12/03/19 05:27 05:27 WBC 13.2 H RBC 4.41 Hgb 13.0 L Hct 38.1 MCV 86 MCH 29.5 MCHC 34.1 RDW 14.5 H Plt Count 346 Seg Neutrophils % 64.8 Sodium 135.5 L Potassium 4.8 Chloride 99 Carbon Dioxide 27 Anion Gap 10 BUN 22 H Creatinine 0.72 Est GFR ( Amer) > 60 Glucose 88 Calcium 9.3 Magnesium 2.3 Total Bilirubin 0.5 AST 24 Alkaline Phosphatase 67 Total Protein 6.1 L Albumin 3.4 L 11/29/19 11/29/19 11/29/19 02:41 10:20 10:20 Creatine Kinase 45 L Troponin I 0.015 0.018 11/29/19 11/29/19 11/29/19 15:09 15:09 21:46 Creatine Kinase 53 L 42 L Troponin I 0.012 11/29/19 21:46 Creatine Kinase Troponin I < 0.012 Impressions: Chest X-Ray 11/29/19 02:17 IMPRESSION: Ill-defined patchy airspace disease left upper lobe. Soft Tissue Neck CT 11/29/19 03:49 IMPRESSION: 1. 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 For tissue diagnosis bronchoscopy could likely obtain tissue on the right. 2. No evidence of pulmonary embolus. 3. Evidence of some likely aspiration in the medial right lower lobe. 4. Evidence of likely infectious etiology in the left lung and this could be viral in nature. Imaging features can be seen with viral or COVID 19 pneumonia, though are nonspecific and can occur with a variety of infectious and noninfectious processes. [PneInd] 5. No acute abnormality in the neck. 6. CHUCKIE Kumari in the emergency department, was made aware of impression one and four by myself by phone on 11/29/2019 at 4:55 AM eastern time. Chest/Abdomen CTA 11/29/19 03:50 IMPRESSION: 1. 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 For tissue diagnosis bronchoscopy could likely obtain tissue on the right. 2. No evidence of pulmonary embolus. 3. Evidence of some likely aspiration in the medial right lower lobe. 4. Evidence of likely infectious etiology in the left lung and this could be viral in nature. Imaging features can be seen with viral or COVID 19 pneumonia, though are nonspecific and can occur with a variety of infectious and noninfectious processes. [PneInd] 5. No acute abnormality in the neck. 6. CHUCKIE Kumari in the emergency department, was made aware of impression one and four by myself by phone on 11/29/2019 at 4:55 AM eastern time. Assessment and Plan - Diagnosis (2) Atrial fibrillation Qualifiers: Atrial fibrillation type: paroxysmal Qualified Code(s): I48.0 - Paroxysmal atrial fibrillation Is this a current diagnosis for this admission?: Yes (3) COPD exacerbation Is this a current diagnosis for this admission?: Yes (4) Lung mass Is this a current diagnosis for this admission?: Yes (5) Pneumonia Qualifiers: Pneumonia type: due to unspecified organism Laterality: unspecified laterality Lung location: unspecified part of lung Qualified Code(s): J18.9 - Pneumonia, unspecified organism Is this a current diagnosis for this admission?: Yes (6) Tobacco abuse Is this a current diagnosis for this admission?: No - Plan Summary Summary: Patient seen by Dr. Howell today who started some digoxin. He required Lopressor IV as well as some digoxin to help with his heart rate. He is nebulizer treatment was also changed to Xopenex. He is Eliquis remains on hold due to hemoptysis. He has been planned for outpatient work-up regarding his lung mass. Will monitor on telemetry today. Hopefully his heart rate can stay stable. His A. fib is likely being triggered by all his lung issues. Continue antibiotics for his pneumonia. - Time Time Spent with patient: Less than 15 minutes Anticipated Discharge Disposition: Home, Self Care Anticipated Discharge Timeframe: within 48 hours
[2019-12-03] MEDS: TRAZODONE HCL 50 MG TABLET PO PRN (23:20)
[2019-12-03] MEDS: DILTIAZEM HCL 30 MG TABLET PO SCH (23:21)
[2019-12-04] MEDS: HYDROMORPHONE HCL 2 MG TABLET PO SCH ×4 (02:42→14:04)
[2019-12-04] MEDS: LEVALBUTEROL HCL NEB 0.63 MG/3 ML AMPUL NEB SCH ×5 (02:49→20:39)
[2019-12-04] MEDS: GUAIFENESIN/D-METHORPHAN (200-20 MG) SYRUP 10 ML PO PRN (03:43)
[2019-12-04] MEDS: DILTIAZEM HCL 30 MG TABLET PO SCH (05:00)
[2019-12-04] MEDS ORDERED: HYDROMORPHONE HCL INJ/PF 2 MG/ML AMPULE IV ONE (05:00)
[2019-12-04] MEDS: CEFTRIAXONE 1 GM/D5W RTU 1 GM/50 ML RTUPB IV SCH (05:01)
[2019-12-04] MEDS: ALPRAZOLAM 0.5 MG TABLET PO SCH ×3 (05:01→21:19)
[2019-12-04] MEDS ORDERED: LEVALBUTEROL HCL NEB 0.63 MG/3 ML AMPUL NEB PRN (08:11)
[2019-12-04] MEDS ORDERED: NORMAL SALINE 1000 ML 1,000 ML IV ONE (08:14)
[2019-12-04] MEDS: BUDESONIDE NEB 0.25 MG/2 ML AMPUL NEB SCH ×2 (08:41→20:39)
[2019-12-04] MEDS: IPRATROPIUM BROMIDE 0.02% NEB 0.5 MG/2.5 ML AMPUL NEB SCH ×3 (08:41→20:39)
[2019-12-04] MEDS ORDERED: DILTIAZEM HCL INJ 25 MG/5 ML VIAL ONE (09:08)
[2019-12-04] MEDS ORDERED: DILTIAZEM HCL INJ 25 MG/5 ML VIAL IV ONE (10:00)
[2019-12-04] MEDS ORDERED: DIGOXIN INJ 0.5 MG/2 ML AMPULE IV ONE (11:00)
[2019-12-04] MEDS: FAMOTIDINE 20 MG TABLET PO SCH ×2 (11:23→21:19)
[2019-12-04] MEDS: DOCUSATE SODIUM 100 MG CAPSULE PO SCH ×2 (11:23→18:19)
[2019-12-04] MEDS: LISINOPRIL 5 MG TABLET PO SCH (11:23)
[2019-12-04] MEDS: ENOXAPARIN SODIUM INJ 40 MG/0.4 ML DISP.SYRIN SUBCUT SCH (11:23)
[2019-12-04] MEDS: ASPIRIN 325 MG TABLET PO SCH (11:24)
[2019-12-04] MEDS: AZITHROMYCIN 500 MG in DEXTROSE 5%-WATER 250 ML IV SCH (11:25)
[2019-12-04] MEDS: DIGOXIN INJ 0.5 MG/2 ML AMPULE IV SCH (11:35)
[2019-12-04] MEDS: DILTIAZEM HCL 60 MG TABLET PO SCH ×2 (12:52→18:19)
--- NOTE | 2019-12-04 14:56 | Progress Note ---
Provider Note Provider Note: CARDIOLOGY PROGRESS NOTE by Dr. Christine Sullivan on 12/04/2019. SUBJECTIVE: The patient went back into atrial fibrillation especially after respiratory therapy. He is asymptomatic from it. His blood pressure is tenuous. His Cardizem has been increased to 60 mg p.o. every 6 hours from 30 mg p.o. every 6 hours. The patient is also on digoxin 0.25 mg p.o. daily. An extra dose of digoxin was given and the patient converted to sinus rhythm. The patient denies any chest pain discomfort. He still appears to be short of breath with coughing and generalized wheezing is productive of sputum which has some blood-tinged urine but no benson hemoptysis. The sputum is also yellow in color. He denies any PND orthopnea or leg edema. There is no ventricle arrhythmia seen on the monitor. There is no TIA CVA symptoms. PHYSICAL EXAMINATION: The patient is well-built. In mild respiratory distress. Selected Entries 12/04/19 07:38 Temperature 97.3 F Temperature Oral Source Pulse Rate 79 Respiratory 18 Rate Blood Pressure 96/54 L Blood Pressure 68 Mean BP Location Right Arm BP Position Supine O2 Sat by Pulse 98 Oximetry Oxygen Flow 4.00 Rate Oxygen Delivery Nasal Cannula Method Head: Is atraumatic normocephalic. EYES: Pupils are equal round regular r eactive to light and accommodation. Extraocular movements are normal. There is no conjunctival pallor. There is no scleral icterus. EARS: Tympanic membranes are intact. External auditory canals are clear. NOSE: There is no deviated nasal septum. There is no inflammation nasal mucous membrane. MOUTH: Mucous membranes of the mouth are moist tongue is moist. There is no ulcers. THROAT: There is no redness of the oropharynx. There is no exudates. SKIN: There is no skin rashes there is no petechia or ecchymosis there is no skin lesions. NECK: Is supple there is no JVD. Carotids are equal there is no bruit. There is no lymphadenopathy. There is no goiter. There is no accessory muscle respiration use. Trachea central LUNGS: There is diminished air entry and prolonged expiration. There is a few dry crackles right upper lobe and scattered rhonchi and wheezing. There is no rales of CHF. On percussion there is hyperresonance throughout. On palpation there is no chest wall tenderness. Heart: S1-S2 is heard. S1 is of normal intensity now there is no S3 gallop there is no S4 gallop. There is systolic murmur left sternal border and the apex there is no rub. ABDOMEN: Soft. Nontender there is no hepatosplenomegaly. Bowel sounds are well heard. EXTREMITIES: Peripheral pulses well felt. There is no edema. Leg pulses are well felt. There is no DVT or cellulitis. There is no sinus clubbing. Capillary refill is normal. 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 PSYCHIATRIC: The patient judgment insight are intact his affect is normal. EKG shows atrial fibrillation with diffuse nonspecific ST-T changes. Labs- Entire Visit 11/29/19 11/29/19 11/29/19 02:41 02:41 02:41 WBC 14.3 H RBC 4.84 Hgb 14.4 Hct 41.3 MCV 85 MCH 29.9 MCHC 35.0 RDW 14.5 H Plt Count 315 Lymph % (Auto) 9.3 L [place] % (Auto) 6.3 Eos % (Auto) 1.3 Baso % (Auto) 0.6 Absolute Neuts (auto) 11.8 H Absolute Lymphs (auto) 1.3 Absolute Monos (auto) 0.9 Absolute Eos (auto) 0.2 Absolute Basos (auto) 0.1 Seg Neutrophils % 82.5 H PT 13.7 INR 1.03 APTT 29.2 VBG pH VBG pCO2 VBG HCO3 VBG Base Excess Sodium 129.5 L Potassium 4.6 Chloride 97 L Carbon Dioxide 22 Anion Gap 11 BUN 15 Creatinine 0.75 Est GFR ( Amer) > 60 Est GFR (MDRD) Non-Af > 60 Glucose 113 H Hemoglobin A1c % Calcium 9.4 Magnesium Total Bilirubin 0.5 Direct Bilirubin 0.3 Neonat Total Bilirubin Not Reportable Neonat Direct Bilirubin Not Reportable Neonat Indirect Bili Not Reportable AST 22 ALT 12 Alkaline Phosphatase 101 Creatine Kinase Troponin I Total Protein 6.6 Albumin 3.6 Triglycerides Cholesterol LDL Cholesterol Direct VLDL Cholesterol HDL Cholesterol TSH COVID-19 Source COVID-19 ([facility]) 11/29/19 11/29/19 11/29/19 02:41 02:41 05:49 WBC RBC Hgb Hct MCV MCH MCHC RDW Plt Count Lymph % (Auto) [place] % (Auto) Eos % (Auto) Baso % (Auto) Absolute Neuts (auto) Absolute Lymphs (auto) Absolute Monos (auto) Absolute Eos (auto) Absolute Basos (auto) Seg Neutrophils % PT INR APTT VBG pH 7.41 VBG pCO2 33.2 L VBG HCO3 20.7 VBG Base Excess -3.0 Sodium Potassium Chloride Carbon Dioxide Anion Gap BUN Creatinine Est GFR ( Amer) Est GFR (MDRD) Non-Af Glucose Hemoglobin A1c % Calcium Magnesium Total Bilirubin Direct Bilirubin Neonat Total Bilirubin Neonat Direct Bilirubin Neonat Indirect Bili AST ALT Alkaline Phosphatase Creatine Kinase Troponin I 0.015 Total Protein Albumin Triglycerides Cholesterol LDL Cholesterol Direct VLDL Cholesterol HDL Cholesterol TSH COVID-19 Source NASOPHARYNGEAL COVID-19 ([facility]) NOT DETECTED 11/29/19 11/29/19 11/29/19 10:20 10:20 15:09 WBC RBC Hgb Hct MCV MCH MCHC RDW Plt Count Lymph % (Auto) [place] % (Auto) Eos % (Auto) Baso % (Auto) Absolute Neuts (auto) Absolute Lymphs (auto) Absolute Monos (auto) Absolute Eos (auto) Absolute Basos (auto) Seg Neutrophils % PT INR APTT VBG pH VBG pCO2 VBG HCO3 VBG Base Excess Sodium Potassium Chloride Carbon Dioxide Anion Gap BUN Creatinine Est GFR ( Amer) Est GFR (MDRD) Non-Af Glucose Hemoglobin A1c % Calcium Magnesium Total Bilirubin Direct Bilirubin Neonat Total Bilirubin Neonat Direct Bilirubin Neonat Indirect Bili AST ALT Alkaline Phosphatase Creatine Kinase 45 L 53 L Troponin I 0.018 Total Protein Albumin Triglycerides Cholesterol LDL Cholesterol Direct VLDL Cholesterol HDL Cholesterol TSH COVID-19 Source COVID-19 ([facility]) 11/29/19 11/29/19 11/29/19 15:09 21:46 21:46 WBC RBC Hgb Hct MCV MCH MCHC RDW Plt Count Lymph % (Auto) [place] % (Auto) Eos % (Auto) Baso % (Auto) Absolute Neuts (auto) Absolute Lymphs (auto) Absolute Monos (auto) Absolute Eos (auto) Absolute Basos (auto) Seg Neutrophils % PT INR APTT VBG pH VBG pCO2 VBG HCO3 VBG Base Excess Sodium Potassium Chloride Carbon Dioxide Anion Gap BUN Creatinine Est GFR ( Amer) Est GFR (MDRD) Non-Af Glucose Hemoglobin A1c % Calcium Magnesium Total Bilirubin Direct Bilirubin Neonat Total Bilirubin Neonat Direct Bilirubin Neonat Indirect Bili AST ALT Alkaline Phosphatase Creatine Kinase 42 L Troponin I 0.012 < 0.012 Total Protein Albumin Triglycerides Cholesterol LDL Cholesterol Direct VLDL Cholesterol HDL Cholesterol TSH COVID-19 Source COVID-19 ([facility]) 11/30/19 11/30/19 11/30/19 05:26 05:26 05:26 WBC 17.2 H RBC 4.55 Hgb 13.6 Hct 39.5 MCV 87 MCH 29.9 MCHC 34.4 RDW 14.2 H Plt Count 337 Lymph % (Auto) 5.7 L [place] % (Auto) 4.6 Eos % (Auto) 0.0 Baso % (Auto) 0.1 Absolute Neuts (auto) 15.4 H Absolute Lymphs (auto) 1.0 Absolute Monos (auto) 0.8 Absolute Eos (auto) 0.0 Absolute Basos (auto) 0.0 Seg Neutrophils % 89.6 H PT INR APTT VBG pH VBG pCO2 VBG HCO3 VBG Base Excess Sodium 132.8 L Potassium 5.0 Chloride 100 Carbon Dioxide 23 Anion Gap 10 BUN 15 Creatinine 0.58 Est GFR ( Amer) > 60 Est GFR (MDRD) Non-Af > 60 Glucose 128 H Hemoglobin A1c % 5.8 Calcium 9.7 Magnesium 2.2 Total Bilirubin 0.5 Direct Bilirubin 0.4 Neonat Total Bilirubin Not Reportable Neonat Direct Bilirubin Not Reportable Neonat Indirect Bili Not Reportable AST 21 ALT 11 Alkaline Phosphatase 75 Creatine Kinase Troponin I Total Protein 5.9 L Albumin 3.4 L Triglycerides 86 Cholesterol 169.95 LDL Cholesterol Direct 120 H VLDL Cholesterol 17.0 HDL Cholesterol 39 L TSH COVID-19 Source COVID-19 ([facility]) 11/30/19 12/02/19 12/02/19 05:26 08:23 08:23 WBC 14.3 H RBC 4.96 Hgb 14.6 Hct 43.1 MCV 87 MCH 29.4 MCHC 33.9 RDW 14.5 H Plt Count 330 Lymph % (Auto) 6.1 L [place] % (Auto) 3.2 Eos % (Auto) 0.0 Baso % (Auto) 0.2 Absolute Neuts (auto) 13.0 H Absolute Lymphs (auto) 0.9 Absolute Monos (auto) 0.5 Absolute Eos (auto) 0.0 Absolute Basos (auto) 0.0 Seg Neutrophils % 90.5 H PT INR APTT VBG pH VBG pCO2 VBG HCO3 VBG Base Excess Sodium 136.3 L Potassium 5.5 H Chloride 101 Carbon Dioxide 25 Anion Gap 10 BUN 19 Creatinine 0.65 Est GFR ( Amer) > 60 Est GFR (MDRD) Non-Af > 60 Glucose 112 H Hemoglobin A1c % Calcium 10.1 Magnesium 2.4 H Total Bilirubin 0.6 Direct Bilirubin 0.5 H Neonat Total Bilirubin Not Reportable Neonat Direct Bilirubin Not Reportable Neonat Indirect Bili Not Reportable AST 32 ALT 19 Alkaline Phosphatase 96 Creatine Kinase Troponin I Total Protein 7.4 Albumin 4.2 Triglycerides Cholesterol LDL Cholesterol Direct VLDL Cholesterol HDL Cholesterol TSH 0.58 COVID-19 Source COVID-19 ([facility]) 12/03/19 12/03/19 05:27 05:27 WBC 13.2 H RBC 4.41 Hgb 13.0 L Hct 38.1 MCV 86 MCH 29.5 MCHC 34.1 RDW 14.5 H Plt Count 346 Lymph % (Auto) 25.6 [place] % (Auto) 8.6 Eos % (Auto) 0.6 Baso % (Auto) 0.4 Absolute Neuts (auto) 8.6 H Absolute Lymphs (auto) 3.4 Absolute Monos (auto) 1.1 Absolute Eos (auto) 0.1 Absolute Basos (auto) 0.0 Seg Neutrophils % 64.8 PT INR APTT VBG pH VBG pCO2 VBG HCO3 VBG Base Excess Sodium 135.5 L Potassium 4.8 Chloride 99 Carbon Dioxide 27 Anion Gap 10 BUN 22 H Creatinine 0.72 Est GFR ( Amer) > 60 Est GFR (MDRD) Non-Af > 60 Glucose 88 Hemoglobin A1c % Calcium 9.3 Magnesium 2.3 Total Bilirubin 0.5 Direct Bilirubin 0.4 Neonat Total Bilirubin Not Reportable Neonat Direct Bilirubin Not Reportable Neonat Indirect Bili Not Reportable AST 24 ALT 18 Alkaline Phosphatase 67 Creatine Kinase Troponin I Total Protein 6.1 L Albumin 3.4 L Triglycerides Cholesterol LDL Cholesterol Direct VLDL Cholesterol HDL Cholesterol TSH COVID-19 Source COVID-19 ([facility]) Chest X-Ray 11/29/19 02:17 IMPRESSION: Ill-defined patchy airspace disease left upper lobe. Soft Tissue Neck CT 11/29/19 03:49 IMPRESSION: 1. 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 For tissue diagnosis bronchoscopy could likely obtain tissue on the right. 2. No evidence of pulmonary embolus. 3. Evidence of some likely aspiration in the medial right lower lobe. 4. Evidence of likely infectious etiology in the left lung and this could be viral in nature. Imaging features can be seen with viral or COVID 19 pneumonia, though are nonspecific and can occur with a variety of infectious and noninfectious processes. [PneInd] 5. No acute abnormality in the neck. 6. CHUCKIE Kumari in the emergency department, was made aware of impression one and four by myself by phone on 11/29/2019 at 4:55 AM eastern time. Chest/Abdomen CTA 11/29/19 03:50 IMPRESSION: 1. 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 For tissue diagnosis bronchoscopy could likely obtain tissue on the right. 2. No evidence of pulmonary embolus. 3. Evidence of some likely aspiration in the medial right lower lobe. 4. Evidence of likely infectious etiology in the left lung and this could be viral in nature. Imaging features can be seen with viral or COVID 19 pneumonia, though are nonspecific and can occur with a variety of infectious and noninfectious processes. [PneInd] 5. No acute abnormality in the neck. 6. CHUCKIE Kumari in the emergency department, was made aware of impression one and four by myself by phone on 11/29/2019 at 4:55 AM eastern time. IMPRESSION/RECOMMENDATION: 1. PAROXYSMAL atrial flutter/fibrillation: Patient back into atrial fibrillation with rapid ventricular response, especially after respiratory breathing treatments. The patient's Cardizem has been increased to 60 mg p.o. every 6 hours. The patient did receive an additional dose of digoxin 0.125 mg IV push x1 in addition to his daily p.o. dose of digoxin. The patient converted to sinus rhythm. We will check the patient's these levels in the a.m. 2. Hemoptysis: This is improved. The patient's Eliquis has been discontinued. Will re-institute Lovenox 40 mg subcutaneous daily for DVT prophylaxis. 3. Left upper lobe pneumonia: Continue antibiotics 4. Most likely bronchogenic cancer/lung cancer: Oncology on the case. 5. Coronary artery disease. History of LAD stent in 2013. No anginal symptoms. Later would recommend that the patient have an IV Lexiscan Cardiolite stress test. We will stop the patient's Plavix since the patient is on Eliquis.. 6. Hypertension: Blood pressure well controlled. 7. COPD: At present no acute exacerbation 8. History of tobacco abuse disorder. Tobacco cessation counseling given 3 minutes spent on this patient. Medications reviewed medications adjusted. Medication changes made. Medical regimen making is of high complexity. Medical regimen and management plan discussed with attending provider. Discussed the patient's clinical condition with the patient and the patient's . 40 minutes spent as patient more than 50% time spent in direct patient care. Will follow.
[2019-12-04] MEDS: PREDNISONE 20 MG TABLET PO SCH ×2 (15:51→21:19)
[2019-12-04] MEDS ORDERED: TRAZODONE HCL 50 MG TABLET PO PRN (16:52)
--- NOTE | 2019-12-04 17:11 | PDOC PROGRESS REPORT ---
Subjective Progress Note for:: 12/04/19 Subjective:: Patient experienced some chest pain last night. The pain was pleuritic in nature. This morning during his breathing treatments he became tachycardic once again and went into A. fib with RVR. Heart rate went as high as 170. At that time he did not notice any chest pain. Denies fever or chills. Discussed plan of care with patient, his and sister. Reason For Visit: PNEUMONIA Physical Exam Vital Signs: Temp Pulse Resp BP Pulse Ox 97.5 F 80 18 94/59 L 96 12/04/19 11:31 12/04/19 14:26 12/04/19 14:26 12/04/19 11:31 12/04/19 14:26 Intake & Output 12/03/19 12/04/19 12/05/19 06:59 06:59 06:59 Intake Total 1750 2059 1979 Output Total 550 Balance 1200 2059 1979 Weight 77.8 kg 77.8 kg General appearance: PRESENT: no acute distress, cooperative Neck exam: ABSENT: JVD Respiratory exam: PRESENT: rhonchi - mild, symmetrical, unlabored, wheezes - m ild but receiving breathing treatment during encounter. ABSENT: tachypnea Cardiovascular exam: PRESENT: irregular rhythm, +S1, +S2, tachycardia GI/Abdominal exam: PRESENT: soft. ABSENT: rebound, rigid, tenderness Extremities exam: ABSENT: pedal edema Neurological exam: PRESENT: alert, awake, oriented to person, oriented to place, oriented to time, oriented to situation Psychiatric exam: ABSENT: agitated, anxious Focused psych exam: ABSENT: pressured speech Skin exam: ABSENT: jaundice Results Laboratory Results: 12/03/19 05:27 12/03/19 05:27 11/29/19 05:01 Blood Blood Culture - Final NO GROWTH IN 5 DAYS 11/29/19 02:24 Blood Blood Culture - Final NO GROWTH IN 5 DAYS 11/29/19 11/29/19 11/29/19 02:41 10:20 10:20 Creatine Kinase 45 L Troponin I 0.015 0.018 11/29/19 11/29/19 11/29/19 15:09 15:09 21:46 Creatine Kinase 53 L 42 L Troponin I 0.012 11/29/19 21:46 Creatine Kinase Troponin I < 0.012 Impressions: Chest X-Ray 11/29/19 02:17 IMPRESSION: Ill-defined patchy airspace disease left upper lobe. Soft Tissue Neck CT 11/29/19 03:49 IMPRESSION: 1. 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 For tissue diagnosis bronchoscopy could likely obtain tissue on the right. 2. No evidence of pulmonary embolus. 3. Evidence of some likely aspiration in the medial right lower lobe. 4. Evidence of likely infectious etiology in the left lung and this could be viral in nature. Imaging features can be seen with viral or COVID 19 pneumonia, though are nonspecific and can occur with a variety of infectious and noninfectious processes. [PneInd] 5. No acute abnormality in the neck. 6. CHUCKIE Kumari in the emergency department, was made aware of impression one and four by myself by phone on 11/29/2019 at 4:55 AM eastern time. Chest/Abdomen CTA 11/29/19 03:50 IMPRESSION: 1. 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 For tissue diagnosis bronchoscopy could likely obtain tissue on the right. 2. No evidence of pulmonary embolus. 3. Evidence of some likely aspiration in the medial right lower lobe. 4. Evidence of likely infectious etiology in the left lung and this could be viral in nature. Imaging features can be seen with viral or COVID 19 pneumonia, though are nonspecific and can occur with a variety of infectious and noninfectious processes. [PneInd] 5. No acute abnormality in the neck. 6. CHUCKIE Kumari in the emergency department, was made aware of impression one and four by myself by phone on 11/29/2019 at 4:55 AM eastern time. Assessment and Plan - Diagnosis (1) Pneumonia Qualifiers: Pneumonia type: due to unspecified organism Laterality: unspecified laterality Lung location: unspecified part of lung Qualified Code(s): J18.9 - Pneumonia, unspecified organism Is this a current diagnosis for this admission?: Yes Plan: Postobstructive pneumonia secondary to lung mass. Has received ceftriaxone and azithromycin for 5 days now. Will discontinue at this point and put patient on Levaquin for just 2 more days. Check CBC in the morning to evaluate leukocytosis. (2) Paroxysmal atrial fibrillation with rapid ventricular response Is this a current diagnosis for this admission?: Yes Plan: Been triggered by multiple etiologies including patient's pulmonary pathologies as well as breathing treatments. Still needs better optimization of his A. fib as he went into RVR again this morning into the 170s. Had to give him a push of IV diltiazem. Give a bolus of IV fluids. P.o. diltiazem increased to 60 mg every 6 hours. Monitor blood pressure. Receiving IV digoxin. Check digoxin level in the morning. Eliquis on hold due to hemoptysis Dr. 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 Oncologist is following and is planning to set patient up for outpatient broncho scopy with biopsy at [place] within 1 week of discharge. We will coordinate Hemoptysis is improving following discontinuation of Eliquis and Plavix. DVT prophylaxis. Patient is receiving Dilaudid every 4 hours for chest pain likely related to neoplasm. I will start patient on long-acting OxyContin every 12 hours change Dilaudid to as needed basis. Bowel regimen (4) COPD exacerbation Is this a current diagnosis for this admission?: Yes Plan: De-escalate to prednisone. Continue bronchodilator treatments with Xopenex and Atrovent. Continue Pulmicort nebulizers as well. Hopefully, if wheezing improves, we can transition off frequent neb treatments to as needed nebulizer treatments and resume him on LABA/ICS. (5) Coronary artery disease Qualifiers: Coronary Disease-Associated Artery/Lesion type: [place] artery Associated angina: with unspecified angina Is this a current diagnosis for this admission?: No Plan: Has history of CAD with stents. Plavix had to be discontinued due to hemoptysis. Continue aspirin. Dr. Howell following a recommending Lexiscan at some point in the future for isch emic re-evaluation. (6) Chronic respiratory failure with hypoxia Is this a current diagnosis for this admission?: Yes Plan: Baseline 3 L at home. Secondary to COPD. (7) Tobacco abuse Is this a current diagnosis for this admission?: No - Time Time Spent with patient: 15-24 minutes Anticipated Discharge Disposition: Home, Self Care Anticipated Discharge Timeframe: within 48 hours
[2019-12-04] MEDS: HYDROMORPHONE HCL 2 MG TABLET PO PRN (18:42)
[2019-12-04] MEDS: OXYCODONE HCL SR 10 MG TABLET PO SCH (21:19)
[2019-12-05] MEDS: DILTIAZEM HCL 60 MG TABLET PO SCH ×2 (00:20→05:34)
--- NOTE | 2019-12-05 02:29 | EKG REPORT ---
SEVERITY:- ABNORMAL ECG - ATRIAL FIBRILLATION, V-RATE 73-133 : Confirmed by: Zeus Zambrano MD 05-Dec-2019 02:28:53
--- NOTE | 2019-12-05 02:29 | EKG REPORT ---
SEVERITY:- ABNORMAL ECG - ATRIAL FIBRILLATION, V-RATE 65-149 : Confirmed by: Zeus Zambrano MD 05-Dec-2019 02:29:01
--- NOTE | 2019-12-05 02:29 | EKG REPORT ---
SEVERITY:- ABNORMAL ECG - ATRIAL FIBRILLATION, V-RATE 75-138 : Confirmed by: Zeus Zambrano MD 05-Dec-2019 02:28:46
[2019-12-05] MEDS: LEVALBUTEROL HCL NEB 0.63 MG/3 ML AMPUL NEB SCH ×2 (02:33→07:30)
[2019-12-05] MEDS: IPRATROPIUM BROMIDE 0.02% NEB 0.5 MG/2.5 ML AMPUL NEB SCH ×2 (02:33→07:30)
[2019-12-05] MEDS: HYDROMORPHONE HCL 2 MG TABLET PO PRN (04:28)
[2019-12-05] MEDS: ALPRAZOLAM 0.5 MG TABLET PO SCH (05:34)
[2019-12-05 05:48] LABS: HEMATOCRIT 37.5 % (37.9-51.0); HEMOGLOBIN 12.9 g/dL (13.5-17.0); MEAN CORPUSCULAR HEMOGLOBIN 29.7 pg (27.0-33.4); MEAN CORPUSCULAR HGB CONC 34.3 g/dL (32.0-36.0); MEAN CORPUSCULAR VOLUME 87 fl (80-97); PLATELET COUNT 363 10^3/uL (150-450); RED BLOOD COUNT 4.32 10^6/uL (4.35-5.55); RED CELL DISTRIBUTION WIDTH 14.1 % (11.5-14.0); WHITE BLOOD COUNT 8.8 10^3/uL (4.0-10.5)
[2019-12-05 06:13] LABS: ANION GAP 8 (5-19); BLOOD UREA NITROGEN 16 mg/dL (7-20); CALCIUM 9.2 mg/dL (8.4-10.2); CARBON DIOXIDE 25 mmol/L (22-30); CHLORIDE 98 mmol/L (98-107); DIGOXIN 0.74 ng/mL (0.8-2.0); GLUCOSE 141 mg/dL (75-110); POTASSIUM 5.1 mmol/L (3.6-5.0)
--- NOTE | 2019-12-05 07:12 | EKG REPORT ---
SEVERITY:- NORMAL ECG - SINUS RHYTHM : Confirmed by: Essence Mancilla 05-Dec-2019 07:12:00
[2019-12-05] MEDS: BUDESONIDE NEB 0.25 MG/2 ML AMPUL NEB SCH (07:30)
[2019-12-05] MEDS ORDERED: ALPRAZOLAM 0.5 MG TABLET PO PRN (07:54)
--- NOTE | 2019-12-05 08:25 | PDOC PROGRESS REPORT ---
Subjective Progress Note for:: 12/05/19 Subjective:: Patient really wants to get discharged today, feels like he would do much better at home, I did discuss because he went into A. fib with RVR yesterday he has been loaded with diltiazem and digoxin, And Probably Needs to Be Converted to Oral Digoxin. Otherwise discussed case with hospitalist team who will be talking with patient and making decision. Reason For Visit: PNEUMONIA Physical Exam Vital Signs: Temp Pulse Resp BP Pulse Ox 97.4 F 58 L 18 129/65 H 95 12/05/19 07:25 12/05/19 07:30 12/05/19 07:30 12/05/19 07:25 12/05/19 07:30 Intake & Output 12/04/19 12/05/19 12/06/19 06:59 06:59 06:59 Intake Total 2059 2129 Balance 2059 2129 Weight 77.8 kg 80 kg General appearance: PRESENT: no acute distress, well-developed, well-nourished Head exam: PRESENT: atraumatic, normocephalic Eye exam: PRESENT: conjunctiva pink, EOMI, PERRLA. ABSENT: scleral icterus Ear exam: PRESENT: normal external ear exam Mouth exam: PRESENT: moist, tongue midline Neck exam: ABSENT: carotid bruit, JVD, lymphadenopathy, thyromegaly Respiratory exam: PRESENT: clear to auscultation mike. ABSENT: rales, rhonchi, wheezes Cardiovascular exam: PRESENT: RRR. ABSENT: diastolic murmur, rubs, systolic murmur Pulses: PRESENT: normal dorsalis pedis pul Vascular exam: PRESENT: normal capillary refill GI/Abdominal exam: PRESENT: normal bowel sounds, soft. ABSENT: distended, gua rding, mass, organolmegaly, rebound, tenderness Rectal exam: PRESENT: deferred Extremities exam: PRESENT: full ROM. ABSENT: calf tenderness, clubbing, pedal edema Neurological exam: PRESENT: alert, awake, oriented to person, oriented to place, oriented to time, oriented to situation, CN II-XII grossly intact. ABSENT: jonna r sensory deficit Psychiatric exam: PRESENT: appropriate affect, normal mood. ABSENT: homicidal ideation, suicidal ideation Skin exam: PRESENT: dry, intact, warm. ABSENT: cyanosis, rash Results Laboratory Results: 12/05/19 05:29 12/05/19 05:29 12/05/19 12/05/19 05:29 05:29 WBC 8.8 RBC 4.32 L Hgb 12.9 L Hct 37.5 L MCV 87 MCH 29.7 MCHC 34.3 RDW 14.1 H Plt Count 363 Sodium 131.0 L Potassium 5.1 H Chloride 98 Carbon Dioxide 25 Anion Gap 8 BUN 16 Creatinine 0.65 Est GFR ( Amer) > 60 Glucose 141 H Calcium 9.2 11/29/19 05:01 Blood Blood Culture - Final NO GROWTH IN 5 DAYS 11/29/19 11/29/19 11/29/19 02:41 10:20 10:20 Creatine Kinase 45 L Troponin I 0.015 0.018 11/29/19 11/29/19 11/29/19 15:09 15:09 21:46 Creatine Kinase 53 L 42 L Troponin I 0.012 11/29/19 21:46 Creatine Kinase Troponin I < 0.012 Impressions: Chest X-Ray 11/29/19 02:17 IMPRESSION: Ill-defined patchy airspace disease left upper lobe. Soft Tissue Neck CT 11/29/19 03:49 IMPRESSION: 1. 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 For tissue diagnosis bronchoscopy could likely obtain tissue on the right. 2. No evidence of pulmonary embolus. 3. Evidence of some likely aspiration in the medial right lower lobe. 4. Evidence of likely infectious etiology in the left lung and this could be viral in nature. Imaging features can be seen with viral or COVID 19 pneumonia, though are nonspecific and can occur with a variety of infectious and noninfectious processes. [PneInd] 5. No acute abnormality in the neck. 6. CHUCKIE Kumari in the emergency department, was made aware of impression one and four by myself by phone on 11/29/2019 at 4:55 AM eastern time. Chest/Abdomen CTA 11/29/19 03:50 IMPRESSION: 1. 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 For tissue diagnosis bronchoscopy could likely obtain tissue on the right. 2. No evidence of pulmonary embolus. 3. Evidence of some likely aspiration in the medial right lower lobe. 4. Evidence of likely infectious etiology in the left lung and this could be viral in nature. Imaging features can be seen with viral or COVID 19 pneumonia, though are nonspecific and can occur with a variety of infectious and noninfectious processes. [PneInd] 5. No acute abnormality in the neck. 6. CHUCKIE Kumari in the emergency department, was made aware of impression one and four by myself by phone on 11/29/2019 at 4:55 AM eastern time. Assessment & Plan - Diagnosis (1) Lung mass Is this a current diagnosis for this admission?: Yes Plan: We will be trying to set him up with outpatient bronchoscopy at [place] (2) Atrial fibrillation Qualifiers: Atrial fibrillation type: paroxysmal Qualified Code(s): I48.0 - Paroxysmal atrial fibrillation Is this a current diagnosis for this admission?: Yes Plan: No anticoagulation on discharge other than aspirin - Time Time Spent with patient: 35 or more minutes
[2019-12-05] MEDS ORDERED: ASPIRIN 81 MG TABLET, CHEWABLE PO SCH (10:00)
[2019-12-05] MEDS ORDERED: LEVOFLOXACIN 750 MG TABLET PO SCH (10:00)
[2019-12-05] MEDS: OXYCODONE HCL SR 10 MG TABLET PO SCH (10:31)
[2019-12-05] MEDS: FAMOTIDINE 20 MG TABLET PO SCH (10:32)
[2019-12-05] MEDS: PREDNISONE 20 MG TABLET PO SCH (10:32)
[2019-12-05] MEDS: DOCUSATE SODIUM 100 MG CAPSULE PO SCH (10:32)
[2019-12-05] MEDS: LISINOPRIL 5 MG TABLET PO SCH (10:32)
[2019-12-05] MEDS: DIGOXIN INJ 0.5 MG/2 ML AMPULE IV SCH (10:33)
[2019-12-05] MEDS: ENOXAPARIN SODIUM INJ 40 MG/0.4 ML DISP.SYRIN SUBCUT SCH (10:34)
--- NOTE | 2019-12-05 11:47 | PDOC DISCHARGE SUMMARY ---
Impression - Admit/DC Date/PCP Admission Date/Primary Care Provider: 11/29/19 06:46 JAMIE JIMENEZ Discharge Date: 12/05/19 - Discharge Diagnosis (1) Pneumonia Is this a current diagnosis for this admission?: Yes (2) Paroxysmal atrial fibrillation with rapid ventricular response Is this a current diagnosis for this admission?: Yes (3) Lung mass Is this a current diagnosis for this admission?: Yes (4) COPD exacerbation Is this a current diagnosis for this admission?: Yes (5) Coronary artery disease Is this a current diagnosis for this admission?: No (6) Chronic respiratory failure with hypoxia Is this a current diagnosis for this admission?: Yes (7) Tobacco abuse Is this a current diagnosis for this admission?: No - Additional Information Resuscitation Status: Full Code Discharge Diet: Cardiac Discharge Activity: Slowly Increase Activity Referrals: FREDERICK ROSARIO FNP-C [Primary Care Provider] - 12/09/19 8:30 am MARILEE FORD MD [ACTIVE STAFF] - 12/08/19 1:45 pm IPNG CANAS MD [ACTIVE STAFF] - Prescriptions: Glycopyrrolate/Formoterol Fum [Bevespi Aerosphere Inhaler] 2 puff IH BID #1 inhaler Diltiazem HCl [Cardizem Cd 120 mg Capsule] 1 cap.sr PO Q12 #60 cap.sr Prednisone [Deltasone 5 mg Tablet] See Protocol PO Q12 #37 tablet Trazodone HCl [Desyrel 50 mg Tablet] 50 mg PO HSP PRN #20 tablet PRN Reason: Sleep Or Insomnia Docusate Sodium 100 mg PO BID #60 tablet Aspirin [Ecotrin 81 mg EC Tablet] 81 mg PO DAILY #30 tab Levalbuterol HCl [Xopenex Neb 1.25 mg/3 ml Ampul] 1.25 mg NEB RTQ6HP PRN #60 vial.neb PRN Reason: Home Medications: Nitroglycerin [Nitrostat 0.4 mg (1/150 Gr) Tabs 25/Bottle] 1 tab SL Q5MP PRN 08/23/12 Ipratropium Savage [Atrovent 0.02% Neb 0.5 mg/2.5 ml Ampul] 0.5 mg NEB Q6 PRN #50 vial.neb 11/18/19 Aspirin [Ecotrin 81 mg EC Tablet] 81 mg PO DAILY #30 tab 12/05/19 Diltiazem HCl [Cardizem Cd 120 mg Capsule] 1 cap.sr PO Q12 #60 cap.sr 12/05/19 Docusate Sodium 100 mg PO BID #60 tablet 12/05/19 Glycopyrrolate/Formoterol Fum [Bevespi Aerosphere Inhaler] 2 puff IH BID #1 inhaler 12/05/19 Hydromorphone HCl [Dilaudid] 4 mg PO Q4HP PRN #0 12/05/19 Ipratropium Savage [Atrovent Hfa] 2 puff IH QIDP PRN #0 12/05/19 Levalbuterol HCl [Xopenex Neb 1.25 mg/3 ml Ampul] 1.25 mg NEB RTQ6HP PRN #60 vial.neb 12/05/19 Lisinopril [Prinivil 10 mg Tablet] 5 mg PO DAILY #0 12/05/19 Prednisone [Deltasone 5 mg Tablet] See Protocol PO Q12 #37 tablet 12/05/19 Trazodone HCl [Desyrel 50 mg Tablet] 50 mg PO HSP PRN #20 tablet 12/05/19 History of Present Illiness History of Present Illness: According to admitting provider: AGAPITO MANZO is a 59 year old male with history of COPD, chronic smoker, history of heart attack with multiple stents came to the emergency room with complaint of increasing shortness of breath. Work-up in the emergency room indicates left-sided pneumonia and also possible left upper middle lobe carcinoma. Consultation with oncology was done. Coronavirus testing is pending. Patient denies any fever denies any chills. Complains of dry cough. Wants to be a full code agreed to stay in the hospital for further management. Hospital Course Hospital Course: (1) Pneumonia Qualifiers: Pneumonia type: due to unspecified organism Laterality: unspecified laterality Lung location: unspecified part of lung Qualified Code(s): J18.9 - Pneumonia, unspecified organism Is this a current diagnosis for this admission?: Yes Plan: Postobstructive pneumonia secondary to lung mass. Has received 7 days of antibiotics initially IV and then 1 day of p.o. He has completed antibiotic course at this time and does not require further antibiotics. Leukocytosis has resolved. (2) Paroxysmal atrial fibrillation with rapid ventricular response Is this a current diagnosis for this admission?: Yes Plan: Been triggered by multiple etiologies including patient's pulmonary pathologies as well as breathing treatments. Was treated during this hospitalization with IV medication pushes as well as IV hydration and initiated on p.o. diltiazem q6h. Digoxin level this morning is not elevated. In sinus rhythm today heart rate in the high 50s. Discussed with Dr. Howell and recommends discharge on Cardizem CD 120 mg twice daily and to continue to hold Eliquis but continue aspirin. Outpatient follow-up with Dr. Howell. 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 Hemoptysis is improving following discontinuation of Eliquis and Plavix. DVT prophylaxis. Patient will continue his Dilaudid regimen as was taking before which he also uses for MSK pain. Bowel regimen Plan is for him to follow-up with Dr. Ford in the clinic later this week to be scheduled for bronchoscopy with biopsy at [facility]. (4) COPD exacerbation Is this a current diagnosis for this admission?: Yes Plan: Initially received IV Solu-Medrol and escalated to prednisone. Continue bronchodilator treatments with Xopenex and Atrovent. I have written patient a prescription for Xopenex to replace albuterol giving he is A. fib with RVR Also sent home on a taper of prednisone. Guaifenesin to help with mucus secretions. (5) Coronary artery disease Qualifiers: Coronary Disease-Associated Artery/Lesion type: [place] artery Associated angina: with unspecified angina Is this a current diagnosis for this admission?: No Plan: Has history of CAD with stents. Plavix had to be discontinued due to hemoptysis. Continue aspirin. Dr. Howell following a recommending Lexiscan at some point in the future for isc hemic re-evaluation. (6) Chronic respiratory failure with hypoxia Is this a current diagnosis for this admission?: Yes Plan: Secondary to COPD and lung mass. Been set up for oxygen 3 to 4 L nasal cannula to keep SPO2 above 89%. Physical Exam Vital Signs: Temp Pulse Resp BP Pulse Ox 97.4 F 58 L 18 129/65 H 95 12/05/19 07:25 12/05/19 07:30 12/05/19 07:30 12/05/19 07:25 12/05/19 07:30 Intake & Output 12/04/19 12/05/19 12/06/19 06:59 06:59 06:59 Intake Total 2059 2129 Balance 2059 2129 Weight 77.8 kg 80 kg General appearance: PRESENT: no acute distress, cooperative Neck exam: ABSENT: JVD Respiratory exam: PRESENT: symmetrical, unlabored, wheezes - expiratory wheeze. ABSENT: accessory muscle use, stridor, tachypnea Cardiovascular exam: PRESENT: RRR, +S1, +S2. ABSENT: tachycardia GI/Abdominal exam: PRESENT: soft. ABSENT: rebound, rigid, tenderness Neurological exam: PRESENT: alert, awake, oriented to person, oriented to place, oriented to time Psychiatric exam: ABSENT: agitated, anxious Results Laboratory Results: WBC 8.8 10^3/uL (4.0-10.5) 12/05/19 05:29 RBC 4.32 10^6/uL (4.35-5.55) L 12/05/19 05:29 Hgb 12.9 g/dL (13.5-17.0) L 12/05/19 05:29 Hct 37.5 % (37.9-51.0) L 12/05/19 05:29 MCV 87 fl (80-97) 12/05/19 05:29 MCH 29.7 pg (27.0-33.4) 12/05/19 05:29 MCHC 34.3 g/dL (32.0-36.0) 12/05/19 05:29 RDW 14.1 % (11.5-14.0) H 12/05/19 05:29 Plt Count 363 10^3/uL (150-450) 12/05/19 05:29 Lymph % (Auto) 25.6 % (13-45) 12/03/19 05:27 Becker % (Auto) 8.6 % (3-13) 12/03/19 05:27 Eos % (Auto) 0.6 % (0-6) 12/03/19 05:27 Baso % (Auto) 0.4 % (0-2) 12/03/19 05:27 Absolute Neuts (auto) 8.6 10^3/uL (1.7-8.2) H 12/03/19 05:27 Absolute Lymphs (auto) 3.4 10^3/uL (0.5-4.7) 12/03/19 05:27 Absolute Monos (auto) 1.1 10^3/uL (0.1-1.4) 12/03/19 05:27 Absolute Eos (auto) 0.1 10^3/uL (0.0-0.6) 12/03/19 05:27 Absolute Basos (auto) 0.0 10^3/uL (0.0-0.2) 12/03/19 05:27 Seg Neutrophils % 64.8 % (42-78) 12/03/19 05:27 PT 13.7 SEC (11.4-15.4) 11/29/19 02:41 INR 1.03 11/29/19 02:41 APTT 29.2 SEC (23.5-35.8) 11/29/19 02:41 VBG pH 7.41 (7.30-7.42) 11/29/19 02:41 VBG pCO2 33.2 mmHg (35-63) L 11/29/19 02:41 VBG HCO3 20.7 mmol/L (20-32) 11/29/19 02:41 VBG Base Excess -3.0 mmol/L 11/29/19 02:41 Sodium 131.0 mmol/L (137-145) L 12/05/19 05:29 Potassium 5.1 mmol/L (3.6-5.0) H 12/05/19 05:29 Chloride 98 mmol/L (98-107) 12/05/19 05:29 Carbon Dioxide 25 mmol/L (22-30) 12/05/19 05:29 Anion Gap 8 (5-19) 12/05/19 05:29 BUN 16 mg/dL (7-20) 12/05/19 05:29 Creatinine 0.65 mg/dL (0.52-1.25) 12/05/19 05:29 Est GFR ( Amer) > 60 (>60) 12/05/19 05:29 Est GFR (MDRD) Non-Af > 60 (>60) 12/05/19 05:29 Glucose 141 mg/dL (75-110) H 12/05/19 05:29 Hemoglobin A1c % 5.8 % (4.7-6.0) 11/30/19 05:26 Calcium 9.2 mg/dL (8.4-10.2) 12/05/19 05:29 Magnesium 2.3 mg/dL (1.6-2.3) 12/03/19 05:27 Total Bilirubin 0.5 mg/dL (0.2-1.3) 12/03/19 05:27 Direct Bilirubin 0.4 mg/dL (0.0-0.4) 12/03/19 05:27 Neonat Total Bilirubin Not Reportable 12/03/19 05:27 Neonat Direct Bilirubin Not Reportable 12/03/19 05:27 Neonat Indirect Bili Not Reportable 12/03/19 05:27 AST 24 U/L (17-59) 12/03/19 05:27 ALT 18 U/L (<50) 12/03/19 05:27 Alkaline Phosphatase 67 U/L (38-126) 12/03/19 05:27 Creatine Kinase 42 U/L (55-170) L 11/29/19 21:46 Troponin I < 0.012 ng/mL 11/29/19 21:46 Total Protein 6.1 g/dL (6.3-8.2) L 12/03/19 05:27 Albumin 3.4 g/dL (3.5-5.0) L 12/03/19 05:27 Triglycerides 86 mg/dL (<150) 11/30/19 05:26 Cholesterol 169.95 mg/dL (0-200) 11/30/19 05:26 LDL Cholesterol Direct 120 mg/dL (<100) H 11/30/19 05:26 VLDL Cholesterol 17.0 mg/dL (10-31) 11/30/19 05:26 HDL Cholesterol 39 mg/dL (>40) L 11/30/19 05:26 TSH 0.58 uIU/mL (0.47-4.68) 11/30/19 05:26 Digoxin 0.74 ng/mL (0.8-2.0) L 12/05/19 05:29 COVID-19 Source NASOPHARYNGEAL 11/29/19 05:49 COVID-19 (MELO) NOT DETECTED 11/29/19 05:49 11/29/19 11/29/19 11/29/19 02:41 10:20 15:09 Troponin I 0.015 0.018 0.012 11/29/19 21:46 Troponin I < 0.012 Impressions: Chest X-Ray 11/29/19 02:17 IMPRESSION: Ill-defined patchy airspace disease left upper lobe. Soft Tissue Neck CT 11/29/19 03:49 IMPRESSION: 1. 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 For tissue diagnosis bronchoscopy could likely obtain tissue on the right. 2. No evidence of pulmonary embolus. 3. Evidence of some likely aspiration in the medial right lower lobe. 4. Evidence of likely infectious etiology in the left lung and this could be viral in nature. Imaging features can be seen with viral or COVID 19 pneumonia, though are nonspecific and can occur with a variety of infectious and noninfectious processes. [PneInd] 5. No acute abnormality in the neck. 6. CHUCKIE Kumari in the emergency department, was made aware of impression one and four by myself by phone on 11/29/2019 at 4:55 AM eastern time. Chest/Abdomen CTA 11/29/19 03:50 IMPRESSION: 1. 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 For tissue diagnosis bronchoscopy could likely obtain tissue on the right. 2. No evidence of pulmonary embolus. 3. Evidence of some likely aspiration in the medial right lower lobe. 4. Evidence of likely infectious etiology in the left lung and this could be viral in nature. Imaging features can be seen with viral or COVID 19 pneumonia, though are nonspecific and can occur with a variety of infectious and noninfectious processes. [PneInd] 5. No acute abnormality in the neck. 6. CHUCKIE Kumari in the emergency department, was made aware of impression one and four by myself by phone on 11/29/2019 at 4:55 AM eastern time. Plan Time Spent: Greater than 30 Minutes Stroke Is this a Stroke Patient?: No Acute Heart Failure Is this a Heart Failure Patient?: No
[2019-12-05] MEDS ORDERED: DILTIAZEM HCL 60 MG TABLET PO SCH (12:00)
[2019-12-05 12:18] VITALS: BP 97/66
== END 2019-12-05 12:54 | disposition home or self-care (01) | DRG 190 ==
LOC: ER 02:04 → EH 06:46 → ICU 11:48 → 3W 11-30 01:13
PROVIDERS: ADMIT Internal Medicine; ATTEND Internal Medicine
DX: J44.1 Chronic obstructive pulmonary disease with (acute) exacerbation (principal); J18.9 Pneumonia, unspecified organism; J96.11 Chronic respiratory failure with hypoxia; C34.2 Malignant neoplasm of middle lobe, bronchus or lung; J44.0 Chronic obstructive pulmonary disease with (acute) lower respiratory infection; Z20.828 Contact with and (suspected) exposure to other viral communicable diseases; I48.0 Paroxysmal atrial fibrillation; I10 Essential (primary) hypertension; I25.10 Atherosclerotic heart disease of native coronary artery without angina pectoris; E78.5 Hyperlipidemia, unspecified; K21.9 Gastro-esophageal reflux disease without esophagitis; Z60.2 Problems related to living alone; F17.210 Nicotine dependence, cigarettes, uncomplicated; E78.00 Pure hypercholesterolemia, unspecified; I25.2 Old myocardial infarction; Z79.899 Other long term (current) drug therapy; Z95.5 Presence of coronary angioplasty implant and graft; Z79.02 Long term (current) use of antithrombotics/antiplatelets; Z79.52 Long term (current) use of systemic steroids; Z88.8 Allergy status to other drugs, medicaments and biological substances
CPT/HCPCS: 36415; 70491; 71045; 71275; 80048; 80053; 80061; 80162; 82550; 82803; 83036; 83735; 84443; 84484; 85025; 85027; 85610; 85730; 87040; 87070; 87205; 87635; 93005; 93010; 93306; 94640; 99285; C9803; J0456; J0696; J1160; J1170; J1650; J2270; J2920; J2930; J3490; J7030; J7060; J7512; J7613; J7644

== ENCOUNTER → 2020-01-10 | Outpatient (CLI) | payer MEDICAID ==
--- NOTE | 2020-01-10 16:59 | RADIOLOGY REPORT (SQ) ---
EXAM DESCRIPTION: MRI HEAD WITHOUT IMAGES COMPLETED DATE/TIME: 01/10/2020 11:12 am REASON FOR STUDY: C34.2 MALIGNANT NEOPLASM OF MIDDLE LOBE, BRONCHUS OR LUNG C34.2 MALIGNANT NEOPLAS M OF MIDDLE LOBE, BRONCHUS OR LUNG COMPARISON: None. TECHNIQUE: Multiplanar imaging includes non-contrasted T1, T2, FLAIR, and diffusion with ADC map seq uences. Images stored on PACS. LIMITATIONS: None. FINDINGS: ANATOMY: No anomalies. Normal vascular flow voids. Pituitary fossa normal. CSF SPACES: Normal in size and contour. No hemorrhage. CEREBRUM: Sulci and gyri normal in size and contour. Normal white matter signal on FLAIR imaging. No evidence of hemorrhage, mass, or extraaxial fluid collection. POSTERIOR FOSSA: No signal alteration. No hemorrhage. No edema, masses or mass effect. Internal betito tory canals, cerebello-pontine angles, mastoids normal. DIFFUSION IMAGING: Negative for acute or sub-acute infarction. ORBITS: No masses. Globes normal. PARANASAL SINUSES: No fluid levels. Mucosa normal. OTHER: No other significant finding. IMPRESSION: NORMAL MRI OF THE BRAIN WITHOUT INTRAVENOUS GADOLINIUM CONTRAST. EVIDENCE OF ACUTE STROKE: NO. TECHNICAL DOCUMENTATION: JOB ID: [id number] 2010 [employer]- All Rights Reserved Reading location - IP/workstation name: [email or web address]
--- NOTE | 2020-01-11 11:26 | RADIOLOGY REPORT (SQ) ---
EXAM DESCRIPTION: PET CT SKULL/THIGH IMAGES COMPLETED DATE/TIME: 01/10/2020 3:03 pm REASON FOR STUDY: C34.2 MALIGNANT NEOPLASM OF MIDDLE LOBE, BRONCHUS OR LUNG C34.2 MALIGNANT NEOPLAS M OF MIDDLE LOBE, BRONCHUS OR LUNG COMPARISON: CTA of the neck with contrast from 11/29/2019 and CTA of the chest from 11/29/2019. RADIONUCLIDE AND DOSE: 10.5 mCi F18 FDG The route of agent administration: Intravenous FASTING BLOOD SUGAR: 91 mg/dl CONTRAST TYPE AND DOSE: No CT contrast given. TECHNIQUE: Blood glucose level was verified. Above dose of FDG was injected intravenously. 2-D seg mented attenuation correction images were obtained from the base of the skull to the midthighs. Nonc ontrast CT images were obtained for attenuation correction and fusion with emission images. CT image s were performed without oral or intravenous contrast and are not sensitive for parenchymal lesions. A series of overlapping emission PET images were obtained. Images reviewed and manipulated at [facility] work [facility] by the radiologist. Images stored on PACS. LIMITATIONS: None. FINDINGS: HEAD AND NECK: No areas of abnormal metabolic activity in the soft tissues of the head and neck. CHEST: The confluent mediastinal and hilar adenopathy / mass that encases the bronchovascular structu res and attenuates the caliber of the right superior lobar bronchus, bronchus intermedius and middle lobar bronchus demonstrates avid FDG uptake with a maximum SUV of 28. There are geographic areas of ground-glass attenuation in both lower lobes associated with thickening of the interlobular septa colleen t demonstrate mild FDG uptake. The nodular ground-glass opacity in the left lower lobe (image 122 of series 3) that measures 14 x 12 mm is new and has a maximum SUV of 4.9. The mixed solid and ground- glass nodular opacities in the left upper lobe with intermixed cystic spaces have increased in the nu mber since 11/28/2017 and for the exception of the opacity in the lateral aspect of the lobe that abuts the pleura (image 25 of series 3) opacities demonstrate no appreciable FDG uptake. ABDOMEN AND PELVIS: The liver demonstrates homogeneous FDG uptake with an average SUV of 2. There is expected physiologic activity throughout the gastrointestinal and genitourinary tracts. There are n o areas of abnormal metabolic activity in the abdomen and pelvis PROXIMAL LOWER EXTREMITIES: No areas of abnormal metabolic activity in the soft tissues of the lower extremities. BONES: There is a lytic lesion in the left ilium that measures 12 mm in diameter and has a maximum ESTRADA V of 28.[address] FINDINGS: No other acute findings on the noncontrast CT. OTHER: No other findings. IMPRESSION: 1. Confluent mediastinal and hilar adenopathy / mass that increases the bronchovascular structures and attenuates the caliber of the right superior lobar bronchus, bronchus intermedius and middle lobar bronchus concerning for a malignant neoplasm and adenopathy. 2. New 14 x 12 mm ground-glass nodular opacity in the left lower lobe (image 122 of series 3) that c ould represent a satellite nodule. 3. Geographic areas of ground-glass attenuation associated with thickening of the interlobular septa in the lower lobes that demonstrate mild FDG uptake. These opacities are nonspecific and could repr esent an infectious or inflammatory process, however given associated thickening of the interlobular septa lymphangitic carcinomatosis should also be considered in the differentials. 4. Makes solid and ground-glass nodular opacities with intermixed cystic spaces throughout the left upper lobe that have increased in number since 11/29/2027 ; for the exception of the nodular opacity in the lateral aspect of the lobe that abuts the pleura these opacities demonstrate no abnormal FDG upt adri on PET. 5. FDG avid lytic metastatic lesion in the left ilium. TECHNICAL DOCUMENTATION: JOB ID: [id number] 2010 [employer]- All Rights Reserved Reading location - IP/workstation name: [email or web address]
== END ==
LOC: RAD 08:09
PROVIDERS: ATTEND Internal Medicine
DX: C34.2 Malignant neoplasm of middle lobe, bronchus or lung (principal)
CPT/HCPCS: 70551; 78815; A9552

== ENCOUNTER → 2020-01-17 | Outpatient (CLI) | payer MEDICAID ==
--- NOTE | 2020-01-17 12:44 | RADIOLOGY REPORT (SQ) ---
EXAM DESCRIPTION: VENOUS BILATERAL LOWER IMAGES COMPLETED DATE/TIME: 01/17/2020 9:17 am REASON FOR STUDY: BLE SWELLING R22.41 LOCALIZED SWELLING, MASS AND LUMP, RIGHT LOWER LIMB R22.42 L OCALIZED SWELLING, MASS AND LUMP, LEFT LOWER LIMB COMPARISON: None. TECHNIQUE: Dynamic and static resendez scale and color images acquired of both lower extremity venous sy stems. Selected spectral images acquired with additional compression and augmentation maneuvers. Imag es stored on PACS. LIMITATIONS: Limited examination due to edema. FINDINGS: RIGHT LEG COMMON FEMORAL AND FEMORAL: Normal phasicity, compression and augmentation. No visualized echogenic m aterial on resendez scale. No defects on color images. POPLITEAL: Normal compression and augmentation. No visualized echogenic material on resendez scale. No de fects on color images. CALF VESSELS: Normal compression and augmentation. No visualized echogenic material on resendez scale. No defects on color image. GSV AND SSV: Normal compression. No visualized echogenic material on resendez scale. No defects on color images. ANY DEEP VENOUS INSUFFICIENCY: Not evaluated. ANY EVIDENCE OF POPLITEAL CYST: No. OTHER: No other significant finding. LEFT LEG COMMON FEMORAL AND FEMORAL: Normal phasicity, compression and augmentation. No visualized echogenic m aterial on resendez scale. No defects on color images. POPLITEAL: Normal compression and augmentation. No visualized echogenic material on resendez scale. No de fects on color images. CALF VESSELS: Normal compression and augmentation. No visualized echogenic material on resendez scale. No defects on color images. GSV AND SSV: Normal compression. No visualized echogenic material on resendez scale. No defects on color images. ANY DEEP VENOUS INSUFFICIENCY: Not evaluated. ANY EVIDENCE POPLITEAL CYST: No. OTHER: No other significant finding. IMPRESSION: 1. NO EVIDENCE DVT OR SVT IN EITHER LEG. TECHNICAL DOCUMENTATION: JOB ID: [id number] 2010 [employer]- All Rights Reserved Reading location - IP/workstation name: [email or web address]
== END ==
LOC: SP 08:00
PROVIDERS: ATTEND Internal Medicine
DX: R22.43 Localized swelling, mass and lump, lower limb, bilateral (principal)
CPT/HCPCS: 93970

== ENCOUNTER 2020-01-30 08:31 | Day surgery (SDC) | payer MEDICAID ==
[~2020-01-30 08:31] MED LIST: ACETAMINOPHEN 325 MG TABLET PO PRN; CEFAZOLIN 2 GM/D5W RTU 2 GM/50 ML RTUPB IV PRN; FENTANYL CITRATE INJ/PF 100 MCG/2 ML AMPUL ONE; MIDAZOLAM 2 MG/2 ML INJ ONE; ONDANSETRON HCL INJ/PF 4 MG/2 ML SDV ONE; PROPOFOL INJ 200 MG/20 ML VIAL IV ONE
[2020-01-30] MEDS ORDERED: CEFAZOLIN 2 GM/D5W RTU 2 GM/50 ML RTUPB IV ONE (08:52)
[2020-01-30] MEDS ORDERED: HEPARIN SOD (PORCINE) 1,000 UNIT/ML 1 ML VIAL ONE (09:16)
[2020-01-30] MEDS ORDERED: LIDOCAINE 1%/EPINEPHRINE INJ 20 ML VIAL ONE (09:16)
[2020-01-30 09:19] LABS: HEMATOCRIT 32.5 % (37.9-51.0); HEMOGLOBIN 11.4 g/dL (13.5-17.0); MEAN CORPUSCULAR HEMOGLOBIN 31.2 pg (27.0-33.4); MEAN CORPUSCULAR VOLUME 89 fl (80-97); PLATELET COUNT 260 10^3/uL (150-450); RED BLOOD COUNT 3.65 10^6/uL (4.35-5.55); RED CELL DISTRIBUTION WIDTH 16.6 % (11.5-14.0); WHITE BLOOD COUNT 8.6 10^3/uL (4.0-10.5)
[2020-01-30] MEDS ORDERED: ALBUTEROL SULFATE 0.083% NEB 2.5 MG/3 ML AMPUL NEB ONE (09:30)
[2020-01-30] MEDS ORDERED: MORPHINE SULFATE 10 MG/ML INJ IV PRN (10:06)
[2020-01-30] MEDS ORDERED: FENTANYL CITRATE INJ/PF 100 MCG/2 ML AMPUL IV PRN ×3 (10:06)
[2020-01-30] MEDS ORDERED: ONDANSETRON HCL INJ/PF 4 MG/2 ML SDV IV PRN (10:06)
[2020-01-30] MEDS ORDERED: DIPHENHYDRAMINE HCL 50 MG/ML VIAL IV PRN (10:06)
[2020-01-30] MEDS ORDERED: PROMETHAZINE HCL INJ 25 MG/1 ML VIAL IV PRN ×2 (10:06)
[2020-01-30] MEDS ORDERED: MEPERIDINE HCL/PF INJ 25 MG/1 ML DISP.SYRIN IV PRN (10:06)
--- NOTE | 2020-01-30 10:26 | Operative Report ---
Nonrecallable Operative Report DATE OF SURGERY: 01/30/20 PREOPERATIVE DIAGNOSIS: Metastatic lung cancer POSTOPERATIVE DIAGNOSIS: Same OPERATION: Mediport placement left chest SURGEON: LYNETTE LI ANESTHESIA: Moderate Sedation TISSUE REMOVED OR ALTERED: None COMPLICATIONS: None ESTIMATED BLOOD LOSS: 5 cc INTRAOPERATIVE FINDINGS: See note PROCEDURE: Patient was brought to the operating awake alert stable condition placed on the operating table supine position and given IV sedation the left chest was prepped and draped in usual sterile fashion. After appropriate timeout site verification the procedure commenced. Next we anesthetized the area below the left clavicle with 1% lidocaine with epinephrine. We also anesthetized the area over the left chest at the T6 position just lateral to the left nipple with 1% lidocaine with epinephrine. A left subclavian vein stick was made with a 16-gauge needle and the wire was placed in through the needle confirmed in superior vena cava using fluoroscopy. Once this was accomplished a dilator introducer was placed over the wire into the superior vena cava confirmed on fluoroscopy. The catheter was then placed in through the tear-away introducer which was torn away. Good position of the catheter was confirmed on fluoroscopy. It was lying above the right atrium. The incision was made on the left anterior chest just lateral to the left nipple with a 15 blade and dissection was carried down through subcutaneous tissue with Bovie cautery a pocket was then fashioned for the Mediport. This was done with Bovie cautery. Hemostasis was intact. The tunnel maker supplied with a kit was then utilized to tunnel the catheter from the subclavian stick site to the port site. It was attached to the port and placed underneath the skin. Good position was again confirmed on fluoroscopy. The port was then heparinized with a heparinized saline solution. The subcutaneous tissue was then reapproximated with interrupted 3-0 Vicryl. The skin was then closed with intracuticular 4-0 Biosyn. Steri-Strips were then applied. This completed the procedure. Confirmatory chest x-ray is pending in recovery room.
--- NOTE | 2020-01-30 10:30 | Discharge Summary ---
Discharge Summary (SDC) - Discharge Final Diagnosis: metastatic lung cancer Date of Surgery: 01/30/20 Discharge Date: 01/30/20 Condition: Good Referrals: MARILEE VILLAGRAN MD [Primary Care Provider] - Discharge Diet: As Tolerated Discharge Activity: Activity As Tolerated Report the Following to Your Physician Immediately: Shortness of Breath - ok to shower tomorrow, keep left chest wall as dry bas possible., Increased Soreness
--- NOTE | 2020-01-30 11:54 | RADIOLOGY REPORT (SQ) ---
EXAM DESCRIPTION: CHEST SINGLE VIEW IMAGES COMPLETED DATE/TIME: 01/30/2020 11:31 am REASON FOR STUDY: s/p portacath placement. COMPARISON: 11/29/2019 EXAM PARAMETERS: NUMBER OF VIEWS: One view. TECHNIQUE: Single frontal radiographic view of the chest acquired. RADIATION DOSE: NA LIMITATIONS: None. FINDINGS: LUNGS AND PLEURA: The previously identified left upper lung mass is not well visualized o n the current study. New finding of bilateral fairly extensive perihilar mixed airspace---interstiti al disease. No pneumothorax. No pleural effusion. MEDIASTINUM AND HILAR STRUCTURES: No masses. Contour normal. HEART AND VASCULAR STRUCTURES: Heart normal in size. Normal vasculature. BONES: No acute findings. HARDWARE: Status post placement Left Etnplr-R-Jacj catheter with the tip in the superior vena cava - atrial junction. OTHER: No other significant finding. IMPRESSION: 1. Status post placement Left Nwxyou-Z-Vwzs catheter. No evidence of pneumothorax. 2. New finding of fairly extensive mixed bilateral perihilar airspace-interstitial disease, may repr esent pneumonia. TECHNICAL DOCUMENTATION: JOB ID: [id number] 2010 [employer]- All Rights Reserved Reading location - IP/workstation name: [email or web address]
[2020-01-30 12:38] VITALS: BP 85/58
--- NOTE | 2020-01-30 15:57 | RADIOLOGY REPORT (SQ) ---
EXAM DESCRIPTION: FLUORO/CV PLACEMENT IMAGES COMPLETED DATE/TIME: 01/30/2020 11:53 am REASON FOR STUDY: PORTACATH PLCMT LEFT SIDE ASSISTED WITH FLUORO IN OR C34.90 MALIGNANT NEOPLASM OF UNSP PART OF UNSP BRONCHUS OR L COMPARISON: None. FLUOROSCOPY TIME: 0.7 minutes 4 images saved to PACS. TECHNIQUE: Intra-operative images acquired during surgical procedure to evaluate progress. NUMBER OF IMAGES: 4 LIMITATIONS: None. FINDINGS: Left side port tip overlies SVC. IMPRESSION: IMAGE(S) OBTAINED DURING PROCEDURE. COMMENT: Quality ID [id number]: Final reports for procedures using fluoroscopy that document radiation exp osure indices, or exposure time and number of fluorographic images (if radiation exposure indices are not available) Please consult full operative report of the attending physician for description of the procedure. TECHNICAL DOCUMENTATION: JOB ID: [id number] 2010 [employer]- All Rights Reserved Reading location - IP/workstation name: [email or web address]
== END 2020-01-30 12:05 | disposition home or self-care (01) ==
LOC: OROUT 08:31
PROVIDERS: ATTEND Surgery
DX: C34.90 Malignant neoplasm of unspecified part of unspecified bronchus or lung (principal); C79.51 Secondary malignant neoplasm of bone; K40.20 Bilateral inguinal hernia, without obstruction or gangrene, not specified as recurrent; I25.10 Atherosclerotic heart disease of native coronary artery without angina pectoris; I25.2 Old myocardial infarction; Z95.5 Presence of coronary angioplasty implant and graft; F17.210 Nicotine dependence, cigarettes, uncomplicated; Z03.818 Encounter for observation for suspected exposure to other biological agents ruled out; Z86.79 Personal history of other diseases of the circulatory system; Z86.73 Personal history of transient ischemic attack (TIA), and cerebral infarction without residual deficits; Z90.49 Acquired absence of other specified parts of digestive tract; F12.90 Cannabis use, unspecified, uncomplicated; Z79.82 Long term (current) use of aspirin; Z79.02 Long term (current) use of antithrombotics/antiplatelets
CPT/HCPCS: 36415; 84132; 85027; 87635; 71045; 77001; 00532; 36561; J2250; J3010; J1644; J3490; J2405; J2704; J7613; J0690; C9803; 532; C1788; Q9967

== ENCOUNTER 2020-02-13 07:13 | Inpatient (IN) | payer MEDICAID ==
--- NOTE | 2020-02-13 07:31 | EKG REPORT ---
SEVERITY:- ABNORMAL ECG - ATRIAL FIBRILLATION, V-RATE 138-147 RVR, THIS IS NEW COMPARED TO 12/05/19. EKG. NONSPECIFIC REPOL ABNORMALITY, DIFFUSE LEADS : Confirmed by: Nasim Hudson MD 13-Feb-2020 07:30:47
[2020-02-13] MEDS ORDERED: ONDANSETRON HCL INJ/PF 4 MG/2 ML SDV IV ONE (07:39)
[2020-02-13] MEDS ORDERED: DILTIAZEM HCL INJ 25 MG/5 ML VIAL IV ONE (07:40)
[2020-02-13] MEDS: NORMAL SALINE 1000 ML 1,000 ML IV PRN ×2 (07:48→07:52)
[2020-02-13] MEDS ORDERED: CEFEPIME 1 GM/D5W RTU 1 GM/50 ML RTUPB IV ONE (07:49)
[2020-02-13] MEDS ORDERED: VANCOMYCIN HCL INJ 1000 MG VIAL IV ONE (07:50)
[2020-02-13 08:02] LABS: HEMATOCRIT 28.4 % (37.9-51.0); HEMOGLOBIN 9.5 g/dL (13.5-17.0); MEAN CORPUSCULAR HEMOGLOBIN 30.2 pg (27.0-33.4); MEAN CORPUSCULAR HGB CONC 33.4 g/dL (32.0-36.0); MEAN CORPUSCULAR VOLUME 90 fl (80-97); PLATELET COUNT 245 10^3/uL (150-450); RED BLOOD COUNT 3.14 10^6/uL (4.35-5.55); RED CELL DISTRIBUTION WIDTH 16.7 % (11.5-14.0)
[2020-02-13 08:03] LABS: VENOUS BLOOD HCO3 20.6 mmol/L (20-32); VENOUS BLOOD PCO2 30.3 mmHg (35-63); VENOUS BLOOD PH 7.45 (7.30-7.42)
[2020-02-13 08:15] LABS: INTERNATIONAL RATION (INR) 1.13; PROTHROMBIN TIME 14.7 SEC (11.4-15.4)
[2020-02-13 08:18] LABS: ALBUMIN 3.2 g/dL (3.5-5.0); ALKALINE PHOSPHATASE 93 U/L (38-126); ANION GAP 17 (5-19); ASPARTATE AMINO TRANSFERASE 27 U/L (17-59); BILIRUBIN,DIRECT 0.5 mg/dL (0.0-0.4); BILIRUBIN,TOTAL 1.2 mg/dL (0.2-1.3); BLOOD UREA NITROGEN 19 mg/dL (7-20); CARBON DIOXIDE 17 mmol/L (22-30); CHLORIDE 98 mmol/L (98-107); GLUCOSE 110 mg/dL (75-110); POTASSIUM 4.1 mmol/L (3.6-5.0)
[2020-02-13 08:35] LABS: ABSOLUTE LYMPHOCYTES# (MANUAL) 0.4 10^3/uL (0.5-4.7); BAND NEUTROPHILS % (MANUAL) 8 % (3-5); BASOPHILS % (MANUAL) 0 % (0-2); EOSINOPHILS % (MANUAL) 0 % (0-6); LYMPHOCYTES % (MANUAL) 64 % (13-45); METAMYELOCYTES % (MANUAL) 4 % (0-1); MONOCYTES % (MANUAL) 8 % (3-13); MYELOCYTES % (MANUAL) 2 % (0); SEGMENTED NEUTROPHILS % (MAN) 14 % (42-78); TOTAL CELLS COUNTED 50
[2020-02-13 08:37] LABS: ANISOCYTOSIS 1+
[2020-02-13 08:38] LABS: PLATELET CLUMPS PRESENT; PLATELET COMMENT ADEQUATE
[2020-02-13 08:44] LABS: CALCIUM 6.9 mg/dL (8.4-10.2)
--- NOTE | 2020-02-13 08:45 | RADIOLOGY REPORT (SQ) ---
EXAM DESCRIPTION: ACUTE ABDOMEN SERIES IMAGES COMPLETED DATE/TIME: 02/13/2020 8:32 am REASON FOR STUDY: sobr/n/v COMPARISON: Chest x-ray dated 01/30/2020, abdomen dated 08/16/2015 NUMBER OF VIEWS: Three views. TECHNIQUE: Frontal chest, supine abdomen and upright/decubitus abdomen radiographic images acquired. LIMITATIONS: None. FINDINGS: CHEST: Diffuse left-sided airspace disease most marked in the left upper lobe. Right lung field is clear. No pneumothorax or effusions. Jjfhvu-X-Thub is in place. FREE AIR: None. No abnormal gas collections. BOWEL GAS PATTERN: Nonobstructive pattern. No dilated loops or air fluid levels. CALCIFICATIONS: No suspicious calcifications. HARDWARE: None in the abdomen. SOFT TISSUES: No gross mass or suggestion of organomegaly. BONES: No acute fracture. No worrisome bone lesions. OTHER: No other significant finding. IMPRESSION: Diffuse left-sided infiltrate most marked in the left upper lobe consistent with pneumon ia. Gas pattern is nonspecific. TECHNICAL DOCUMENTATION: JOB ID: [id number] 2010 [employer]- All Rights Reserved Reading location - IP/workstation name: [email or web address]-[facility]-
[2020-02-13] MEDS ORDERED: CALCIUM GLUCONATE 1000 MG/10 ML INJ IV ONE ×2 (08:47→19:42)
[2020-02-13 08:48] LABS: WHITE BLOOD COUNT 0.6 10^3/uL (4.0-10.5)
[2020-02-13 08:50] LABS: NT PRO BNP 1040 pg/mL (<125)
[2020-02-13 08:51] LABS: TROPONIN I < 0.012 ng/mL
[2020-02-13] MEDS ORDERED: NORMAL SALINE 1000 ML 1,000 ML IV ONE (08:52)
--- NOTE | 2020-02-13 09:45 | ER Document Report ---
Entered by SOL WELCH SCRIBE 02/13/20 0738 Acting as scribe for:JAKE GAN MD ED GI/ - General Chief Complaint: Abdominal Pain Stated Complaint: LOWER ABDOMINAL PAIN Primary Care Provider: MARILEE FORD MD [Primary Care Provider] - Follow up as needed Mode of Arrival: Medic Information source: Patient Notes: This 59 year old male patient with a history of HTN, HLD, CHF, VT x5, CAD s/p 4 stents, A fib, COPD, and lung cancer currently undergoing chemotherapy, most recent on 02/05 presents to the ED today via EMS with complaints of generalized abdominal pain with associated nausea and vomiting for the past x3 days. Patient states that he has not been able to keep anything down. Denies fever, chills, chest pain, or diarrhea. Patient was hypotensive with a systolic blood pressure of 80 and in rapid A fib with a rate between 160-170 bpm with EMS. Patient is followed by Dr. Ford for oncology and Dr. Sullivan for oncology. TRAVEL OUTSIDE OF THE [place] IN LAST 30 DAYS: No - Related Data Allergies/Adverse Reactions: atorvastatin [From Lipitor] Allergy (Verified 11/18/19 15:41) "muslce and joint pain" Past Medical History - General Information source: Patient, H Records - Social History Smoking Status: Unknown if Ever Smoked Family History: Reviewed & Not Pertinent - Past Medical History Cardiac Medical History: Reports: Hx Atrial Fibrillation, Hx Congestive Heart Failure, Hx Coronary Artery Disease, Hx Heart Attack - x5, Hx Hypercholesterolemia, Hx Hypertension - hx of, Hx Heart Murmur Pulmonary Medical History: Reports: Hx Asthma, Hx COPD Neurological Medical History: Reports: Hx Cerebrovascular Accident - "during surgery" pt states "no residual" Malignancy Medical History: Reports Hx Lung Cancer GI Medical History: Reports: Hx Diverticulitis, Hx Gastroesophageal Reflux Disease Psychiatric Medical History: Reports: Hx Depression Past Surgical History: Reports: Hx Bowel Surgery, Hx Cardiac Catheterization, Hx Cardiac Surgery - PTCA 07/2012, Hx Coronary Stent - x4, Hx Orthopedic Surgery - Lumbar surgery x2 - Immunizations Immunizations up to date: Yes Hx Diphtheria, Pertussis, Tetanus Vaccination: Yes Review of Systems - Review of Systems Constitutional: See HPI. denies: Chills, Fever EENT: No symptoms reported Cardiovascular: See HPI. denies: Chest pain Respiratory: No symptoms reported Gastrointestinal: See HPI, Abdominal pain, Nausea, Vomiting. denies: Diarrhea Genitourinary: No symptoms reported Male Genitourinary: No symptoms reported Musculoskeletal: No symptoms reported Skin: No symptoms reported Hematologic/Lymphatic: No symptoms reported Neurological/Psychological: No symptoms reported -: Yes All other systems reviewed and negative Physical Exam - Vital signs Vitals: Resp Pulse Ox 28 H 100 02/13/20 07:17 02/13/20 07:17 - General General appearance: Alert, Other - Appears pallor and is actively dry heaving In distress: Moderate - HEENT Head: Normocephalic, Atraumatic Eyes: Normal Pupils: PERRL Mucous membranes: Dry - Respiratory Respiratory status: Tachypnea Chest status: Nontender Breath sounds: Decreased air movement - Diminished breath sounds in the bases Chest palpation: Normal - Cardiovascular Rhythm: Irregularly irregular, Tachycardia Heart sounds: Normal auscultation Murmur: No Friction rub: No Gallop: None auscultated - Abdominal Inspection: Normal Distension: No distension Bowel sounds: Normal Tenderness: Nontender - Abdomen soft Organomegaly: No organomegaly - Back Back: Normal, Nontender - Extremities General upper extremity: Normal inspection General lower extremity: Normal inspection. No: Edema - Neurological Neuro grossly intact: Yes Orientation: AAOx4 Sallie Coma Scale Eye Opening: Spontaneous Brutus Coma Scale Verbal: Oriented Sallie Coma Scale Motor: Obeys Commands Brutus Coma Scale Total: 15 - Psychological Associated symptoms: Normal affect, Normal mood - Skin Skin Temperature: Warm Skin Moisture: Dry Skin Color: Other - Pallor Course - Re-evaluation Re-evalutation: 02/13/20 10:06 Patient presents in rapid ventricular response to A. fib with intractable nausea vomiting and tachypnea. - Vital Signs Vital signs: Temp Pulse Resp BP Pulse Ox 98.6 F 17 101/64 100 02/13/20 07:19 02/13/20 10:00 02/13/20 10:00 02/13/20 10:00 Vital signs show blood pressure 101/64 with a pulse ox of 100%, respiratory rate 17. And pulse around 105. - Laboratory Result Diagrams: 02/13/20 07:35 02/13/20 07:35 Laboratory results interpreted by me: 02/13/20 02/13/20 02/13/20 07:35 07:35 07:35 WBC 0.6 L* RBC 3.14 L Hgb 9.5 L Hct 28.4 L RDW 16.7 H Seg Neuts % (Manual) 14 L Band Neutrophils % 8 H Lymphocytes % (Manual) 64 H Metamyelocytes % 4 H Myelocytes % 2 H Abs Neuts (Manual) 0.2 L Abs Lymphs (Manual) 0.4 L Abs Monocytes (Manual) 0.0 L VBG pH 7.45 H VBG pCO2 30.3 L Sodium 131.8 L Carbon Dioxide 17 L Lactic Acid Calcium 6.9 L* Direct Bilirubin 0.5 H NT-Pro-B Natriuret Pep Total Protein 6.0 L Albumin 3.2 L 02/13/20 02/13/20 07:35 07:35 WBC RBC Hgb Hct RDW Seg Neuts % (Manual) Band Neutrophils % Lymphocytes % (Manual) Metamyelocytes % Myelocytes % Abs Neuts (Manual) Abs Lymphs (Manual) Abs Monocytes (Manual) VBG pH VBG pCO2 Sodium Carbon Dioxide Lactic Acid 3.2 H Calcium Direct Bilirubin NT-Pro-B Natriuret Pep 1040 H Total Protein Albumin 02/13/20 07:35 02/13/20 07:35 MCV 90 fl (80-97) 02/13/20 07:35 MCH 30.2 pg (27.0-33.4) 02/13/20 07:35 MCHC 33.4 g/dL (32.0-36.0) 02/13/20 07:35 RDW 16.7 % (11.5-14.0) H 02/13/20 07:35 Seg Neutrophils % Not Reportable 02/13/20 07:35 VBG pH 7.45 (7.30-7.42) H 02/13/20 07:35 VBG pCO2 30.3 mmHg (35-63) L 02/13/20 07:35 VBG HCO3 20.6 mmol/L (20-32) 02/13/20 07:35 VBG Base Excess -2.0 mmol/L 02/13/20 07:35 Chloride 98 mmol/L (98-107) 02/13/20 07:35 Carbon Dioxide 17 mmol/L (22-30) L 02/13/20 07:35 Anion Gap 17 (5-19) 02/13/20 07:35 Est GFR ( Amer) > 60 (>60) 02/13/20 07:35 Glucose 110 mg/dL (75-110) 02/13/20 07:35 Lactic Acid 3.2 mmol/L (0.7-2.1) H 02/13/20 07:35 Calcium 6.9 mg/dL (8.4-10.2) L* 02/13/20 07:35 Total Bilirubin 1.2 mg/dL (0.2-1.3) 02/13/20 07:35 AST 27 U/L (17-59) 02/13/20 07:35 Alkaline Phosphatase 93 U/L (38-126) 02/13/20 07:35 Total Protein 6.0 g/dL (6.3-8.2) L 02/13/20 07:35 Albumin 3.2 g/dL (3.5-5.0) L 02/13/20 07:35 Lipase 86.4 U/L (23-300) 02/13/20 07:35 02/13/20 07:35 Troponin I < 0.012 NT-Pro-B Natriuret Pep 1040 H Laboratory results significant for a white blood cell count of 0.6. Patient has received chemotherapy. Patient's BNP is 1040. Lactic acid 3.2 and the calcium is 6.9. CO2 was 17. - Diagnostic Test Radiology reviewed: Image reviewed, Reports reviewed Radiology results interpreted by me: 02/13/20 10:10 Acute Abdomen Series 02/13/20 07:44 IMPRESSION: Diffuse left-sided infiltrate most marked in the left upper lobe consistent with pneumonia. Gas pattern is nonspecific. Acute abdominal series shows diffuse left-sided infiltrate most marked in the left upper lobe consistent with pneumonia gas pattern is nonspecific. - EKG Interpretation by Me Additional EKG results interpreted by me: 02/13/20 10:11 Twelve-lead EKG shows A. fib with a rapid ventricular response of 149. Nonspecific repull abnormalities diffusely in leads. Normal axis SD interval indeterminate QRS within normal interval QT variable no evidence for an acute STEMI. - Consults Dr. Lofton, Hospitalist Time consulted: 09:36 Consulted provider: will come to ER Critical Care Note - Critical Care Note Total time excluding time spent on procedures (mins): 40 - Management of patient with atrial fibrillation with RVR short of breath tachypneic and tachycardic and requiring IV medications to control the ventricular response of the A. fib. Discussion with the admit team in a patient who is immunocompromised with a white count of 0.6 secondary to chemotherapy. Sepsis with IV low to 3 L of flu id and antibiotic started for pneumonia. Discharge - Discharge Clinical Impression: Pneumonia, Atrial fibrillation, Paroxysmal atrial fibrillation with rapid ventricular response, Lung mass, Leukopenia due to antineoplastic chemotherapy, Nausea and vomiting, Hypocalcemia Condition: Fair Disposition: ADMITTED INPATIENT Admitting Provider: Kirsty (Hospitalist) Unit Admitted: IMCU Referrals: MARILEE FORD MD [Primary Care Provider] - Follow up as needed I personally performed the services described in the documentation, reviewed and edited the documentation which was dictated to the scribe in my presence, and it accurately records my words and actions.
[2020-02-13] MEDS ORDERED: HYDROMORPHONE HCL INJ/PF 2 MG/ML AMPULE IV ONE (12:15)
[2020-02-13] MEDS: RINGERS SOLUTION,LACTATED 1,000 ML IV PRN (12:15)
[2020-02-13] MEDS ORDERED: MAGNESIUM HYDROXIDE SUSP 30 ML UDCUP PO PRN (12:27)
[2020-02-13] MEDS ORDERED: ACETAMINOPHEN 325 MG TABLET PO PRN (12:27)
[2020-02-13] MEDS ORDERED: VANCOMYCIN HCL 0 MG in DEXTROSE 5%-WATER 250 ML IV NR (12:30)
[2020-02-13] MEDS ORDERED: METOPROLOL TARTRATE PF/INJ 5 MG/5 ML SDV IV PRN (12:37)
--- NOTE | 2020-02-13 12:50 | PDOC H&P ---
History of Present Illness Admission Date/PCP: 02/13/20 10:28 MARILEE VILLAGRAN MD Patient complains of: Nausea, vomiting and leg pain History of Present Illness: AGAPITO MANZO is a 59 year old male with recent diagnosis of left-sided lung cancer. He is currently receiving chemotherapy. He is unable to tell me the specific regimen. He states that he has had a cough for about 24 hours. He has had nausea and vomiting and a dry throat. He denies fever and chills. He has a long complex cardiac history and so the RVR was not totally noticed. When he presented to the emergency department he was in atrial fibrillation with RVR and a rate of 150. He was given a single bolus of IV Cardizem and this slowed his heart rate. It appears that he is on 120 mg twice daily as an outpatient. The malignancy is in the hilar area extending to the left. Evidently diagnosis was made by bronchoscopy at [facility]. He feels quite weak and his white blood cell count was only 600. Absolute neutrophil count was 200. There is a question of a history of heart failure however an echocardiogram in November showed a normal ejection fraction of 60% and no evidence of diastolic heart failure. Chest x-ray suggested left upper lobe airspace disease. The patient will be admitted to the hospitalist service for neutropenic sepsis. IV antibiotics and neutropenic precautions initiated. Awaiting medication reconciliation to resume other medications. Past Medical History Cardiac Medical History: Reports: Atrial Fibrillation, Congestive Heart Failure, Coronary Artery Disease, Myocardial Infarction - x5, Hyperlipidema, Hypertension - hx of, Heart Murmur Denies: Peripheral Vascular Disease Pulmonary Medical History: Reports: Asthma, Chronic Obstructive Pulmonary Disease (COPD) Denies: Bronchitis, Pneumonia, Tuberculosis Neurological Medical History: Denies: Seizures Renal/ Medical History: Denies: End Stage Renal Disease Malignancy Medical History: Reports: Lung Cancer GI Medical History: Reports: Diverticulitis, Gastroesophageal Reflux Disease Denies: Cirrhosis, Crohn's Disease, Hiatal Hernia Musculoskeltal Medical History: Denies: Arthritis, Fibromyalgia Psychiatric Medical History: Reports: Depression Denies: Bipolar Disorder Hematology: Denies: Anemia, Bleeding Tendencies Past Surgical History Past Surgical History: Reports: Cardiac Catheterization, Coronary Stent - x4, Orthopedic Surgery - Lumbar surgery x2, Other - Port-A-Cath placement left chest Denies: Appendectomy, Cholecystectomy, Colostomy, Coronary Artery Bypass Graft, Gastric Bypass Surgery, Herniorrhaphy, Pacemaker, Tonsillectomy Social History Information Source: Patient, [facility] Records Lives with: Spouse/Significant other Smoking Status: Former Smoker Electronic Cigarette use?: No Last Time Smoked: November 2019 Frequency of Alcohol Use: None Hx Recreational Drug Use: No Drugs: None Hx Prescription Drug Abuse: No - Advance Directive Resuscitation Status: Full Code Surrogate healthcare decision maker:: The patient's would be the ultimate decision maker. He reports that she is the one who primarily wishes full CODE STATUS. Family History Family History: CAD, Malignancy Parental Family History Reviewed: Yes Children Family History Reviewed: Yes Sibling(s) Family History Reviewed.: Yes Medication/Allergy Home Medications: Alprazolam [Xanax 0.5 mg Tablet] 1 mg PO TID 01/27/20 Fentanyl 75 mcg TOP Q3D 01/27/20 Furosemide [Lasix] 20 mg PO BID 01/27/20 Hydromorphone HCl [Dilaudid] 8 mg PO Q4HP PRN 02/13/20 Paroxetine HCl [Paxil] 10 mg PO DAILY 02/13/20 Potassium Chloride [Klor-Con M20] 20 meq PO DAILY 02/13/20 Allergies/Adverse Reactions: atorvastatin [From Lipitor] Allergy (Verified 11/18/19 15:41) "muslce and joint pain" Review of Systems All systems: reviewed and no additional remarkable complaints except as stated Constitutional: PRESENT: as per HPI, fatigue, weakness Nose, Mouth, and Throat: PRESENT: other - Dry mouth Cardiovascular: PRESENT: palpitations Respiratory: PRESENT: cough, dyspnea Gastrointestinal: PRESENT: nausea, vomiting Musculoskeletal: PRESENT: other - Erythema both lower legs/ankles with pain Integumentary: PRESENT: other - Very dry skin arms and legs Psychiatric: PRESENT: anxiety, depression Physical Exam Vital Signs: Temp Pulse Resp BP Pulse Ox 98.6 F 20 105/65 100 02/13/20 07:19 02/13/20 10:45 02/13/20 10:45 02/13/20 10:45 Intake & Output 02/12/20 02/13/20 02/14/20 06:59 06:59 06:59 Intake Total 3050 Balance 3050 Weight 81.647 kg General appearance: PRESENT: cooperative, mild distress, well-developed Head exam: PRESENT: atraumatic, normocephalic Eye exam: PRESENT: conjunctival injection, EOMI. ABSENT: scleral icterus Ear exam: PRESENT: normal external ear exam. ABSENT: bleeding, drainage Mouth exam: PRESENT: dry mucosa, tongue midline Respiratory exam: PRESENT: prolonged expiratory phas, rales - Left side, sym metrical, unlabored. ABSENT: accessory muscle use, tachypnea, wheezes Cardiovascular exam: PRESENT: irregular rhythm, tachycardia. ABSENT: bradycardia, diastolic murmur, systolic murmur GI/Abdominal exam: PRESENT: diminished bowel sounds, soft. ABSENT: distended, guarding, tenderness Rectal exam: PRESENT: deferred Gentrourinary exam: ABSENT: indwelling catheter Extremities exam: PRESENT: joint swelling - Swelling and erythema both ankles, tenderness - Lower legs and ankles, +1 edema Musculoskeletal exam: PRESENT: normal inspection - Except for erythema. ABSENT: deformity Neurological exam: PRESENT: alert, awake, oriented to person, oriented to place, oriented to time, oriented to situation, CN II-XII grossly intact. ABSENT: altered Psychiatric exam: PRESENT: flat affect. ABSENT: agitated, anxious Focused psych exam: ABSENT: delusional, paranoid, restlessness Skin exam: PRESENT: dry - Very dry skin, erythema - Erythematous lower legs and ankles to the mid foot. Very dry skin with multiple excoriation-like vera. The skin is quite warm to the touch. It is very tender., vesicles Results Laboratory Results: 02/13/20 07:35 02/13/20 07:35 02/13/20 02/13/20 02/13/20 07:35 07:35 07:35 WBC 0.6 L* RBC 3.14 L Hgb 9.5 L Hct 28.4 L MCV 90 MCH 30.2 MCHC 33.4 RDW 16.7 H Plt Count 245 Seg Neutrophils % Not Reportable VBG pH 7.45 H VBG pCO2 30.3 L VBG HCO3 20.6 VBG Base Excess -2.0 Sodium 131.8 L Potassium 4.1 Chloride 98 Carbon Dioxide 17 L Anion Gap 17 BUN 19 Creatinine 0.57 Est GFR ( Amer) > 60 Glucose 110 Lactic Acid Calcium 6.9 L* Total Bilirubin 1.2 AST 27 Alkaline Phosphatase 93 Total Protein 6.0 L Albumin 3.2 L Lipase 86.4 02/13/20 02/13/20 07:35 10:16 WBC RBC Hgb Hct MCV MCH MCHC RDW Plt Count Seg Neutrophils % VBG pH VBG pCO2 VBG HCO3 VBG Base Excess Sodium Potassium Chloride Carbon Dioxide Anion Gap BUN Creatinine Est GFR ( Amer) Glucose Lactic Acid 3.2 H 1.4 Calcium Total Bilirubin AST Alkaline Phosphatase Total Protein Albumin Lipase 02/13/20 07:35 Troponin I < 0.012 NT-Pro-B Natriuret Pep 1040 H Impressions: Acute Abdomen Series 02/13/20 07:44 IMPRESSION: Diffuse left-sided infiltrate most marked in the left upper lobe consistent with pneumonia. Gas pattern is nonspecific. Assessment and Plan - Diagnosis (1) Neutropenic sepsis Is this a current diagnosis for this admission?: Yes (2) Pneumonia of left upper lobe due to infectious organism Is this a current diagnosis for this admission?: Yes (3) Leukopenia due to antineoplastic chemotherapy Is this a current diagnosis for this admission?: Yes (4) Paroxysmal atrial fibrillation with rapid ventricular response Is this a current diagnosis for this admission?: Yes (5) Hypocalcemia Is this a current diagnosis for this admission?: Yes (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 Is this a current diagnosis for this admission?: Yes (7) Hyperlipidemia Qualifiers: Hyperlipidemia type: pure hypercholesterolemia Qualified Code(s): E78.00 - Pure hypercholesterolemia, unspecified; E78.0 - Pure hypercholesterolemia Is this a current diagnosis for this admission?: Yes (8) Coronary artery disease Qualifiers: Coronary Disease-Associated Artery/Lesion type: [place] artery [place] vs. transplanted heart: [place] heart Associated angina: without angina Qualified Code(s): I25.10 - Atherosclerotic heart disease of [place] coronary artery without angina pectoris Is this a current diagnosis for this admission?: Yes (9) Hypertension Qualifiers: Hypertension type: essential hypertension Qualified Code(s): I10 - Essential (primary) hypertension Is this a current diagnosis for this admission?: Yes (10) COPD (chronic obstructive pulmonary disease) Qualifiers: COPD type: unspecified COPD Qualified Code(s): J44.9 - Chronic obstructive pulmonary disease, unspecified Is this a current diagnosis for this admission?: Yes (11) Chronic respiratory failure with hypoxia Is this a current diagnosis for this admission?: Yes - Plan Summary Summary: Neutropenic sepsis Pneumonia Leukopenia due to antineoplastic chemotherapy Paroxysmal atrial fibrillation with rapid ventricular response Hypocalcemia Neoplasm of hilus of left lung Hyperlipidemia Coronary artery disease Hypertension Chronic obstructive pulmonary disease Chronic respiratory failure with hypoxia 02/13/2020 Neutropenic sepsis-vancomycin and cefepime. Neutropenic precautions. Currently left-sided pneumonia appears to be the focus. Blood cultures are pending. Patient receiving fluids. He did receive multiple liters in the emergency department. UA did not suggest infection. Pneumonia-antibiotics as above. The patient is on 2 L nasal cannula at home. Continue same. Leukopenia-absolute neutrophil count is only 200. Total white blood cell count is only 600. Oncology consult placed. Neutropenic precautions as above. Monitor white blood cell count. Paroxysmal atrial fibrillation with rapid ventricular response-the patient received IV diltiazem. Will reintroduce diltiazem at 60 mg every 6 as this can be adjusted more easily than long-acting. Will likely go back on his diltiazem 120 mg twice daily at some point. Will monitor on telemetry. Hypocalcemia may have induced the arrhythmia. Hypocalcemia-1 amp of calcium gluconate given. Recheck calcium. Supplement based on results. Neoplasm hilum left lung-chemotherapy on hold at this point. Oncology will see the patient during this admission. Hyperlipidemia-no statin therapy at this point. Adverse side effects include myalgia. Coronary artery disease-history of multiple stents. Continue aspirin. Await final medication reconciliation to continue other medications vital signs allowing. Hypertension-currently with low blood pressure. Holding medications until blood pressure improves. COPD-no inhalers at home. DuoNebs as needed. No steroids at this point. Chronic hypoxic respiratory failure-patient on 2 L nasal cannula. Continue same. Trying keep oxygen saturations between 90 and 94%. - Time Time Spent with patient: 35 or more minutes Medications reviewed and adjusted accordingly: Yes Anticipated Discharge Disposition: Home with Home Health Anticipated Discharge Timeframe: 4-5 days - Inpatient Certification Based on my medical assessment, after consideration of the patient's comorbidities, presenting symptoms, or acuity I expect that the services needed warrant INPATIENT care.: Yes I certify that my determination is in accordance with my understanding of Medicare's requirements for reasonable and necessary INPATIENT services [42 CFR 412.3e].: Yes Medical Necessity: Significant Comorbidiites Make Outpatient Treatment Too Risky, Need Close Monitoring Due to Risk of Patient Decompensation, Need For IV Fluids, Need For Continuous Telemetry Monitoring, Need for Pain Control, Need for IV Antibiotics Post Hospital Care: D/C or Transfer Summary
[2020-02-13] MEDS ORDERED: DILTIAZEM HCL 30 MG TABLET PO SCH (14:00)
[2020-02-13] MEDS ORDERED: PROMETHAZINE HCL INJ 25 MG/1 ML VIAL IV PRN (14:13)
[2020-02-13] MEDS ORDERED: ONDANSETRON HCL INJ/PF 4 MG/2 ML SDV IV PRN (14:13)
[2020-02-13 14:18] LABS: ABSOLUTE LYMPHOCYTES (AUTO) 0.3 10^3/uL (0.5-4.7); ABSOLUTE MONOCYTES (AUTO) 0.1 10^3/uL (0.1-1.4); ABSOLUTE NEUT (AUTO) 0.1 10^3/uL (1.7-8.2); EOSINOPHILS % (AUTO) 1.7 % (0-6); HEMATOCRIT 20.6 % (37.9-51.0); LYMPHOCYTES % (AUTO) 58.8 % (13-45); MEAN CORPUSCULAR HEMOGLOBIN 30.8 pg (27.0-33.4); MEAN CORPUSCULAR HGB CONC 33.9 g/dL (32.0-36.0); MEAN CORPUSCULAR VOLUME 91 fl (80-97); MONOCYTES % (AUTO) 25.1 % (3-13); PLATELET COUNT 184 10^3/uL (150-450); RED BLOOD COUNT 2.26 10^6/uL (4.35-5.55); RED CELL DISTRIBUTION WIDTH 16.8 % (11.5-14.0); SEGMENTED NEUTROPHILS % (AUTO) 13.4 % (42-78); TOTAL CELLS COUNTED % (AUTO) 100 %
[2020-02-13 15:07] LABS: ANISOCYTOSIS 1+; WHITE BLOOD COUNT 0.5 10^3/uL (4.0-10.5)
[2020-02-13] MEDS ORDERED: IPRATROPIUM/ALBUTEROL 0.5-2.5 MG/3 ML AMPUL NEB PRN (15:12)
[2020-02-13 15:35] LABS: PLATELET COMMENT ADEQUATE
[2020-02-13] MEDS: HYDROMORPHONE HCL INJ/PF 2 MG/ML AMPULE IV PRN ×2 (15:42→21:45)
[2020-02-13] MEDS ORDERED: NORMAL SALINE 250 ML IV PRN ×2 (16:24)
[2020-02-13] MEDS: DILTIAZEM HCL 60 MG TABLET PO SCH (17:29)
[2020-02-13] MEDS: VANCOMYCIN HCL 1,250 MG in DEXTROSE 5%-WATER 250 ML IV SCH (17:29)
[2020-02-13] MEDS: FENTANYL 75 MCG/HR PATCH.TD72 TD SCH (17:30)
[2020-02-13] MEDS ORDERED: CEFEPIME 2 GM/D5W RTU 2 GM/50 ML RTUPB IV SCH (18:00)
[2020-02-13] MEDS: PANTOT AC/MIN OIL/PET HY-PHL OINT 50 GM TOP SCH (18:54)
[2020-02-13 18:57] LABS: HEMATOCRIT 24.8 % (37.9-51.0); HEMOGLOBIN 8.6 g/dL (13.5-17.0); MEAN CORPUSCULAR HEMOGLOBIN 30.6 pg (27.0-33.4); MEAN CORPUSCULAR HGB CONC 34.5 g/dL (32.0-36.0); MEAN CORPUSCULAR VOLUME 89 fl (80-97); PLATELET COUNT 221 10^3/uL (150-450); RED BLOOD COUNT 2.79 10^6/uL (4.35-5.55); RED CELL DISTRIBUTION WIDTH 16.9 % (11.5-14.0)
[2020-02-13 19:10] LABS: ANION GAP 12 (5-19); BLOOD UREA NITROGEN 13 mg/dL (7-20); CARBON DIOXIDE 18 mmol/L (22-30); CHLORIDE 101 mmol/L (98-107); GLUCOSE 93 mg/dL (75-110)
[2020-02-13 19:19] LABS: ABSOLUTE LYMPHOCYTES# (MANUAL) 0.7 10^3/uL (0.5-4.7); ABSOLUTE MONOCYTES # (MANUAL) 0.2 10^3/uL (0.1-1.4); BASOPHILS % (MANUAL) 0 % (0-2); EOSINOPHILS % (MANUAL) 0 % (0-6); LYMPHOCYTES % (MANUAL) 62 % (13-45); MONOCYTES % (MANUAL) 20 % (3-13); SEGMENTED NEUTROPHILS % (MAN) 18 % (42-78); TOTAL CELLS COUNTED 50
[2020-02-13 19:21] LABS: ANISOCYTOSIS 1+; OVALOCYTES SLIGHT; PLATELET COMMENT ADEQUATE; POIKILOCYTOSIS SLIGHT
[2020-02-13 19:23] LABS: CALCIUM 6.3 mg/dL (8.4-10.2)
[2020-02-13 19:24] LABS: WHITE BLOOD COUNT 1.2 10^3/uL (4.0-10.5)
[2020-02-13] MEDS: CALCIUM GLUCONATE 1 GM/NS 50 ML RTU IV SCH ×2 (20:14→21:38)
[2020-02-13] MEDS: ALPRAZOLAM 0.5 MG TABLET PO SCH (21:37)
[2020-02-13] MEDS: ASPIRIN 81 MG TABLET, CHEWABLE PO SCH (21:37)
[2020-02-13] MEDS: CEFEPIME HCL 2 GM in DEXTROSE 5%-WATER 50 ML IV SCH (21:38)
[2020-02-13] MEDS ORDERED: METOPROLOL TARTRATE 25 MG TABLET PO SCH (22:00)
[2020-02-14] MEDS: PANTOPRAZOLE SODIUM 40 MG TABLET.DR PO SCH (05:31)
[2020-02-14] MEDS: ALPRAZOLAM 0.5 MG TABLET PO SCH ×3 (05:31→22:02)
[2020-02-14] MEDS: DILTIAZEM HCL 60 MG TABLET PO SCH ×4 (05:31→18:45)
[2020-02-14] MEDS ORDERED: PHARMACY COMMUNICATION ORDER MC ONE (07:30)
[2020-02-14 07:53] LABS: ANION GAP 6 (5-19); BLOOD UREA NITROGEN 7 mg/dL (7-20); CARBON DIOXIDE 23 mmol/L (22-30); CHLORIDE 98 mmol/L (98-107); GLUCOSE 84 mg/dL (75-110); POTASSIUM 3.3 mmol/L (3.6-5.0)
[2020-02-14 07:57] LABS: VANCOMYCIN,TROUGH 13.9 ug/mL (5.0-20.0)
[2020-02-14] MEDS ORDERED: INFLUENZA QUAD (6MOS+) 2020-21 VAC 0.5 ML SYR IM ONE (08:00)
[2020-02-14 08:06] LABS: ABSOLUTE LYMPHOCYTES (AUTO) 0.5 10^3/uL (0.5-4.7); ABSOLUTE MONOCYTES (AUTO) 0.4 10^3/uL (0.1-1.4); ABSOLUTE NEUT (AUTO) 0.1 10^3/uL (1.7-8.2); EOSINOPHILS % (AUTO) 1.7 % (0-6); HEMATOCRIT 24.7 % (37.9-51.0); HEMOGLOBIN 8.7 g/dL (13.5-17.0); LYMPHOCYTES % (AUTO) 48.8 % (13-45); MEAN CORPUSCULAR HEMOGLOBIN 31.4 pg (27.0-33.4); MEAN CORPUSCULAR HGB CONC 35.2 g/dL (32.0-36.0); MEAN CORPUSCULAR VOLUME 89 fl (80-97); MONOCYTES % (AUTO) 43.3 % (3-13); PLATELET COUNT 167 10^3/uL (150-450); RED BLOOD COUNT 2.76 10^6/uL (4.35-5.55); RED CELL DISTRIBUTION WIDTH 15.9 % (11.5-14.0); SEGMENTED NEUTROPHILS % (AUTO) 5.2 % (42-78); TOTAL CELLS COUNTED % (AUTO) 100 %
[2020-02-14 08:13] LABS: CALCIUM 6.3 mg/dL (8.4-10.2)
--- NOTE | 2020-02-14 08:24 | PDOC CONSULTATION ---
Consultation Consult Date: 02/14/20 Provider Consulted: CARMEN NEWTON Consult reason:: Hematology/Oncology consultation requested for patient on active chemotherapy for lung cancer admitted with neutropenic fever. 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 He received cycle #2 carboplatin/paclitaxel/tecentriq on 02/06/2020. He states that since his first cycle he has had pain and redness in his feet and ankles since his first dose of chemo. He has been using aloe on his feet. He also reports that 24 hours prior to admission he had uncontrolled nausea and vomiting. However, this morning he states that he is very hungry and would like to go home. He does not understand what treatment he is getting here that cannot be given at home. On admission his WBC was low. ANC was 0.1 but his temperature was normal. He was started on IV antibiotics emperically. Past Medical History Cardiac Medical History: Reports: Atrial Fibrillation, Congestive Heart Failure, Coronary Artery Disease, Myocardial Infarction - x5, Hyperlipidema, Hypertension - hx of, Heart Murmur Denies: Peripheral Vascular Disease Pulmonary Medical History: Reports: Asthma, Chronic Obstructive Pulmonary Disease (COPD) Denies: Bronchitis, Pneumonia, Tuberculosis Neurological Medical History: Denies: Seizures Renal/ Medical History: Denies: End Stage Renal Disease Malignancy Medical History: Reports: Lung Cancer GI Medical History: Reports: Diverticulitis, Gastroesophageal Reflux Disease Denies: Cirrhosis, Crohn's Disease, Hiatal Hernia Musculoskeltal Medical History: Denies: Arthritis, Fibromyalgia Psychiatric Medical History: Reports: Depression Denies: Bipolar Disorder Hematology: Denies: Anemia, Bleeding Tendencies Past Surgical History Past Surgical History: Reports: Cardiac Catheterization, Coronary Stent - x4, Orthopedic Surgery - Lumbar surgery x2, Other - Port-A-Cath placement left chest Denies: Appendectomy, Cholecystectomy, Colostomy, Coronary Artery Bypass Graft, Gastric Bypass Surgery, Herniorrhaphy, Pacemaker, Tonsillectomy Social History Lives with: Spouse/Significant other Smoking Status: Former Smoker Electronic Cigarette use?: No Last Time Smoked: November 2019 Frequency of Alcohol Use: None Hx Recreational Drug Use: No Drugs: None Hx Prescription Drug Abuse: No - Advance Directive Resuscitation Status: Full Code Family History Family History: CAD, Malignancy Parental Family History Reviewed: Yes Children Family History Reviewed: No Sibling(s) Family History Reviewed.: Yes Medication/Allergy Home Medications: Alprazolam [Xanax 0.5 mg Tablet] 1 mg PO TID 01/27/20 Fentanyl 75 mcg TOP Q3D 01/27/20 Furosemide [Lasix] 20 mg PO BID 01/27/20 Hydromorphone HCl [Dilaudid] 8 mg PO Q4HP PRN 02/13/20 Paroxetine HCl [Paxil] 10 mg PO DAILY 02/13/20 Potassium Chloride [Klor-Con M20] 20 meq PO DAILY 02/13/20 Allergies/Adverse Reactions: atorvastatin [From Lipitor] Allergy (Verified 11/18/19 15:41) "muslce and joint pain" Review of Systems Constitutional: ABSENT: headache(s) Ears: ABSENT: hearing changes Nose, Mouth, and Throat: ABSENT: sore throat Cardiovascular: ABSENT: chest pain Respiratory: ABSENT: dyspnea Gastrointestinal: PRESENT: nausea. ABSENT: diarrhea Genitourinary: ABSENT: dysuria Musculoskeletal: PRESENT: as per HPI Integumentary: PRESENT: as per HPI Neurological: PRESENT: weakness Hematologic/Lymphatic: ABSENT: easy bleeding Physical Exam Vital Signs: Temp Pulse Resp BP Pulse Ox 97.8 F 88 18 113/63 96 02/14/20 04:35 02/14/20 07:00 02/14/20 04:35 02/14/20 04:35 02/14/20 04:35 Intake & Output 02/13/20 02/14/20 02/15/20 06:59 06:59 06:59 Intake Total 3950 Balance 3950 Weight 80.7 kg General appearance: PRESENT: no acute distress, well-developed, well-nourished Exam: 59 year old male. Head exam: PRESENT: atraumatic, normocephalic Eye exam: PRESENT: EOMI Mouth exam: PRESENT: moist, tongue midline Neck exam: ABSENT: lymphadenopathy, tenderness Respiratory exam: PRESENT: clear to auscultation mike, unlabored Cardiovascular exam: PRESENT: RRR GI/Abdominal exam: PRESENT: soft. ABSENT: tenderness Extremities exam: PRESENT: +1 edema Musculoskeletal exam: PRESENT: normal inspection Neurological exam: PRESENT: alert, awake, oriented to person, oriented to place, oriented to time, oriented to situation Psychiatric exam: PRESENT: appropriate affect Skin exam: PRESENT: other - both feet and ankles with erythema, excoriation, and painful to touch. Results Laboratory Results: 02/13/20 02/13/20 02/13/20 07:35 07:35 07:35 WBC 0.6 L* RBC 3.14 L Hgb 9.5 L Hct 28.4 L MCV 90 MCH 30.2 MCHC 33.4 RDW 16.7 H Plt Count 245 Seg Neutrophils % Not Reportable VBG pH 7.45 H VBG pCO2 30.3 L VBG HCO3 20.6 VBG Base Excess -2.0 Sodium 131.8 L Potassium 4.1 Chloride 98 Carbon Dioxide 17 L Anion Gap 17 BUN 19 Creatinine 0.57 Est GFR ( Amer) > 60 Glucose 110 Lactic Acid Calcium 6.9 L* Magnesium Total Bilirubin 1.2 AST 27 Alkaline Phosphatase 93 Total Protein 6.0 L Albumin 3.2 L Lipase 86.4 Blood Type Antibody Screen 02/13/20 02/13/20 02/13/20 07:35 10:16 13:20 WBC RBC Hgb Hct MCV MCH MCHC RDW Plt Count Seg Neutrophils % VBG pH VBG pCO2 VBG HCO3 VBG Base Excess Sodium Potassium Chloride Carbon Dioxide Anion Gap BUN Creatinine Est GFR ( Amer) Glucose Lactic Acid 3.2 H 1.4 1.1 Calcium Magnesium Total Bilirubin AST Alkaline Phosphatase Total Protein Albumin Lipase Blood Type Antibody Screen 02/13/20 02/13/20 02/13/20 13:35 13:35 15:46 WBC 0.5 L* RBC 2.26 L Hgb 7.0 L D Hct 20.6 L MCV 91 MCH 30.8 MCHC 33.9 RDW 16.8 H Plt Count 184 Seg Neutrophils % 13.4 L VBG pH VBG pCO2 VBG HCO3 VBG Base Excess Sodium Potassium Chloride Carbon Dioxide Anion Gap BUN Creatinine Est GFR ( Amer) Glucose Lactic Acid 1.2 1.1 Calcium Magnesium Total Bilirubin AST Alkaline Phosphatase Total Protein Albumin Lipase Blood Type Antibody Screen 02/13/20 02/13/20 02/13/20 17:02 18:26 18:26 WBC 1.2 L* RBC 2.79 L Hgb 8.6 L Hct 24.8 L MCV 89 MCH 30.6 MCHC 34.5 RDW 16.9 H Plt Count 221 Seg Neutrophils % Not Reportable VBG pH VBG pCO2 VBG HCO3 VBG Base Excess Sodium Potassium Chloride Carbon Dioxide Anion Gap BUN Creatinine Est GFR ( Amer) Glucose Lactic Acid 2.5 H Calcium Magnesium Total Bilirubin AST Alkaline Phosphatase Total Protein Albumin Lipase Blood Type A POSITIVE Antibody Screen NEGATIVE 02/13/20 18:26 WBC RBC Hgb Hct MCV MCH MCHC RDW Plt Count Seg Neutrophils % VBG pH VBG pCO2 VBG HCO3 VBG Base Excess Sodium 130.6 L Potassium 4.0 Chloride 101 Carbon Dioxide 18 L Anion Gap 12 BUN 13 Creatinine 0.41 L Est GFR ( Amer) > 60 Glucose 93 Lactic Acid Calcium 6.3 L* Magnesium 1.9 Total Bilirubin AST Alkaline Phosphatase Total Protein Albumin Lipase Blood Type Antibody Screen 02/13/20 07:35 Troponin I < 0.012 NT-Pro-B Natriuret Pep 1040 H Impressions: Acute Abdomen Series 02/13/20 07:44 IMPRESSION: Diffuse left-sided infiltrate most marked in the left upper lobe consistent with pneumonia. Gas pattern is nonspecific. Assessment & Plan - Diagnosis (1) Cellulitis and abscess of foot Is this a current diagnosis for this admission?: Yes Plan: Bilateral cellulitis ankles - may also be allergic reaction to aloe or other medication. Continue cefapime and vanc. (2) Nausea and vomiting Is this a current diagnosis for this admission?: Yes Plan: Now resolved. Advance diet as tolerated. (3) Neoplasm of hilus of left lung Is this a current diagnosis for this admission?: Yes Plan: s/p chemotherapy. Blood counts all down due to chemo. No indication for transfusion currently, but will watch. Await ANC >1.0 prior to discharge. - Plan Summary Plan Summary: Thank you for this consultation. I will continue to follow. Please feel free to call with any questions or concerns.
[2020-02-14] MEDS: HYDROMORPHONE HCL INJ/PF 2 MG/ML AMPULE IV PRN ×3 (08:35→16:51)
[2020-02-14] MEDS: RINGERS SOLUTION,LACTATED 1,000 ML IV PRN (08:36)
[2020-02-14] MEDS: VANCOMYCIN HCL 1,250 MG in DEXTROSE 5%-WATER 250 ML IV SCH ×4 (08:36→16:52)
[2020-02-14 08:48] LABS: POIKILOCYTOSIS SLIGHT; POLYCHROMASIA SLIGHT
[2020-02-14 08:49] LABS: ANISOCYTOSIS SLIGHT; PLATELET CLUMPS PRESENT; PLATELET COMMENT ADEQUATE
[2020-02-14] MEDS ORDERED: PAROXETINE HCL 10 MG PO SCH (10:00)
[2020-02-14] MEDS: CEFEPIME HCL 2 GM in DEXTROSE 5%-WATER 50 ML IV SCH ×2 (10:30→22:02)
[2020-02-14] MEDS: CALCIUM CARBONATE 600 MG TABLET PO SCH ×2 (10:30→18:45)
[2020-02-14] MEDS: PAROXETINE HCL 20 MG TABLET PO SCH (10:30)
[2020-02-14] MEDS: PANTOT AC/MIN OIL/PET HY-PHL OINT 50 GM TOP SCH ×2 (10:31→18:46)
[2020-02-14] MEDS ORDERED: POTASSI CL 20 MEQ/50 ML RIDER 20 MEQ/50 ML RTUPB IV ONE (11:15)
[2020-02-14] MEDS ORDERED: CALCIUM GLUC IN NACL, ISO-OSM 1 GM/50 ML RTUPB IV ONE (11:15)
[2020-02-14] MEDS ORDERED: MAG HYDROX/AL HYDROX/SIMETH SUSP 30 ML UDCUP PO PRN (11:43)
[2020-02-14 11:50] LABS: PATH REVIEW PATHOLOGIST REVIEWED
--- NOTE | 2020-02-14 11:50 | PDOC PROGRESS REPORT ---
Subjective Date:: 02/14/20 Subjective:: Patient is feeling better and is anxious to go home however he is white count is only 1.0. Hemoglobin is stable but his calcium is still quite low. Reason For Visit: NEUTROPENIC SEPSIS,ATRIAL FIBRILLATION RVR, Physical Exam Vital Signs: Temp Pulse Resp BP Pulse Ox 97.8 F 89 19 113/63 93 02/14/20 04:35 02/14/20 09:43 02/14/20 09:43 02/14/20 04:35 02/14/20 09:43 Intake & Output 02/13/20 02/14/20 02/15/20 06:59 06:59 06:59 Intake Total 5200 250 Balance 5200 250 Weight 80.7 kg General appearance: PRESENT: no acute distress, cooperative, well-developed Head exam: PRESENT: atraumatic, normocephalic Eye exam: PRESENT: conjunctiva pale. ABSENT: scleral icterus Ear exam: PRESENT: normal external ear exam. ABSENT: bleeding, drainage Mouth exam: PRESENT: moist, tongue midline Respiratory exam: PRESENT: clear to auscultation mike, symmetrical, unlabored. ABSENT: rales, rhonchi, tachypnea, wheezes Cardiovascular exam: PRESENT: RRR, +S1, +S2. ABSENT: bradycardia, diastolic murmur, irregular rhythm, systolic murmur GI/Abdominal exam: PRESENT: normal bowel sounds, soft. ABSENT: distended, guarding, tenderness Rectal exam: PRESENT: deferred Gentrourinary exam: ABSENT: indwelling catheter Extremities exam: PRESENT: joint swelling - Bilateral ankles, pedal edema Musculoskeletal exam: PRESENT: ambulatory. ABSENT: deformity, dislocation Neurological exam: PRESENT: alert, awake, oriented to person, oriented to place, oriented to time, oriented to situation, CN II-XII grossly intact Psychiatric exam: PRESENT: anxious. ABSENT: agitated Focused psych exam: ABSENT: delusional, paranoid, restlessness Skin exam: PRESENT: erythema - Bilateral ankles and lower legs, other - Dry scaly skin bilateral arms Results Laboratory Results: 02/14/20 07:39 02/14/20 07:10 02/13/20 02/13/20 02/13/20 13:20 13:35 13:35 WBC 0.5 L* RBC 2.26 L Hgb 7.0 L D Hct 20.6 L MCV 91 MCH 30.8 MCHC 33.9 RDW 16.8 H Plt Count 184 Seg Neutrophils % 13.4 L Sodium Potassium Chloride Carbon Dioxide Anion Gap BUN Creatinine Est GFR ( Amer) Glucose Lactic Acid 1.1 1.2 Calcium Magnesium PTH Intact Blood Type Antibody Screen 02/13/20 02/13/20 02/13/20 15:46 17:02 18:26 WBC RBC Hgb Hct MCV MCH MCHC RDW Plt Count Seg Neutrophils % Sodium Potassium Chloride Carbon Dioxide Anion Gap BUN Creatinine Est GFR ( Amer) Glucose Lactic Acid 1.1 2.5 H Calcium Magnesium PTH Intact Blood Type A POSITIVE Antibody Screen NEGATIVE 02/13/20 02/13/20 02/14/20 18:26 18:26 07:10 WBC 1.2 L* RBC 2.79 L Hgb 8.6 L Hct 24.8 L MCV 89 MCH 30.6 MCHC 34.5 RDW 16.9 H Plt Count 221 Seg Neutrophils % Not Reportable Sodium 130.6 L 126.5 L Potassium 4.0 3.3 L Chloride 101 98 Carbon Dioxide 18 L 23 Anion Gap 12 6 BUN 13 7 Creatinine 0.41 L 0.40 L Est GFR ( Amer) > 60 > 60 Glucose 93 84 Lactic Acid Calcium 6.3 L* 6.3 L* Magnesium 1.9 1.8 PTH Intact Blood Type Antibody Screen 02/14/20 02/14/20 02/14/20 07:10 07:10 07:39 WBC 1.0 L* RBC 2.76 L Hgb 8.7 L Hct 24.7 L MCV 89 MCH 31.4 MCHC 35.2 RDW 15.9 H Plt Count 167 Seg Neutrophils % 5.2 L Sodium Potassium Chloride Carbon Dioxide Anion Gap BUN Creatinine Est GFR ( Amer) Glucose Lactic Acid 1.2 Calcium Magnesium PTH Intact 346.9 H Blood Type Antibody Screen 02/13/20 07:35 Troponin I < 0.012 NT-Pro-B Natriuret Pep 1040 H Impressions: Acute Abdomen Series 02/13/20 07:44 IMPRESSION: Diffuse left-sided infiltrate most marked in the left upper lobe consistent with pneumonia. Gas pattern is nonspecific. 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 transplanted heart: [place] heart Associated angina: without angina Qualified Code(s): I25.10 - Atherosclerotic heart disease of [place] coronary artery without angina pectoris Is this a current diagnosis for this admission?: Yes (9) Hypertension Qualifiers: Hypertension type: essential hypertension Qualified Code(s): I10 - Essential (primary) hypertension Is this a current diagnosis for this admission?: Yes (10) COPD (chronic obstructive pulmonary disease) Qualifiers: COPD type: unspecified COPD Qualified Code(s): J44.9 - Chronic obstructive pulmonary disease, unspecified Is this a current diagnosis for this admission?: Yes (11) Chronic respiratory failure with hypoxia Is this a current diagnosis for this admission?: Yes - Plan Summary Summary: Neutropenic sepsis Pneumonia Leukopenia due to antineoplastic chemotherapy Paroxysmal atrial fibrillation with rapid ventricular response Hypocalcemia Neoplasm of hilus of left lung Hyperlipidemia Coronary artery disease Hypertension Chronic obstructive pulmonary disease Chronic respiratory failure with hypoxia 02/13/2020 Neutropenic sepsis-vancomycin and cefepime. Neutropenic precautions. Currently left-sided pneumonia appears to be the focus. Blood cultures are pending. Patient receiving fluids. He did receive multiple liters in the emergency department. UA did not suggest infection. Pneumonia-antibiotics as above. The patient is on 2 L nasal cannula at home. Continue same. Leukopenia-absolute neutrophil count is only 200. Total white blood cell count is only 600. Oncology consult placed. Neutropenic precautions as above. Monitor white blood cell count. Paroxysmal atrial fibrillation with rapid ventricular response-the patient received IV diltiazem. Will reintroduce diltiazem at 60 mg every 6 as this can be adjusted more easily than long-acting. Will likely go back on his diltiazem 120 mg twice daily at some point. Will monitor on telemetry. Hypocalcemia may have induced the arrhythmia. Hypocalcemia-1 amp of calcium gluconate given. Recheck calcium. Supplement based on results. Neoplasm hilum left lung-chemotherapy on hold at this point. Oncology will see the patient during this admission. Hyperlipidemia-no statin therapy at this point. Adverse side effects include myalgia. Coronary artery disease-history of multiple stents. Continue aspirin. Await final medication reconciliation to continue other medications vital signs allowing. Hypertension-currently with low blood pressure. Holding medications until blood pressure improves. COPD-no inhalers at home. DuoNebs as needed. No steroids at this point. Chronic hypoxic respiratory failure-patient on 2 L nasal cannula. Continue same. Trying keep oxygen saturations between 90 and 94%. 02/14/2020 White blood cell count is up to 1.0. Continue antibiotic therapy. Hemoglobin is up to 8.7. Continue to monitor. Still with calcium of only 6.3. Additional calcium gluconate and oral calcium Atrial fibrillation-continue oral diltiazem and consolidate in toto long-acting Cardizem Hypoxic respiratory failure-continue oxygen supplement. - Time Time Spent with patient: 15-24 minutes Medications reviewed and adjusted accordingly: Yes Anticipated Discharge Disposition: Home, Self Care Anticipated Discharge Timeframe: within 48 hours
[2020-02-14] MEDS: CHOLECALCIFEROL (D3) 1,000 UNIT (25 MCG) TABLET PO SCH (12:14)
[2020-02-14] MEDS: ASPIRIN 81 MG TABLET, CHEWABLE PO SCH (22:02)
--- NOTE | 2020-02-14 22:33 | CDI QUERY ---
CDI Query CDI Review: We are seeking further clarification of documentation to reflect the severity of illness of your patient. Per H&P: Paroxysmal atrial fibrillation with rapid ventricular response-the patient received IV diltiazem. Will reintroduce diltiazem at 60 mg every 6 as this can be adjusted more easily than long-acting. Will likely go back on his diltiazem 120 mg twice daily at some point. Will monitor on telemetry. Hypocalcemia may have induced the arrhythmia. Based on your medical judgement, can you further clarify in the Progress Notes and continue through the Discharge Summary if the Atrial Fibrillation can be further specified: Persistent Atrial fibrillation Chronic (Permanent) Atrial fibrillation Longstanding Other Unable to determine Thank you for your consideration. KWABENA Rodriguez RN Clinical Logistics Engineer Physician Advisor Jose
[2020-02-15] MEDS: VANCOMYCIN HCL 1,250 MG in DEXTROSE 5%-WATER 250 ML IV SCH ×4 (00:31→23:05)
[2020-02-15] MEDS: DILTIAZEM HCL 60 MG TABLET PO SCH ×4 (00:32→18:07)
[2020-02-15] MEDS: PANTOPRAZOLE SODIUM 40 MG TABLET.DR PO SCH (06:24)
[2020-02-15] MEDS: ALPRAZOLAM 0.5 MG TABLET PO SCH ×3 (06:24→21:06)
--- NOTE | 2020-02-15 07:46 | PDOC PROGRESS REPORT ---
Subjective Date:: 02/15/20 Subjective:: Patient sleeping peacefully but arouses briefly. No complaints voiced. Nurses without concerns. He has been afebrile since admission. Reason For Visit: NEUTROPENIC SEPSIS,ATRIAL FIBRILLATION RVR, Physical Exam Vital Signs: Temp Pulse Resp BP Pulse Ox 97.8 F 85 20 97/60 L 95 02/15/20 06:29 02/15/20 06:29 02/15/20 06:29 02/15/20 06:29 02/15/20 06:29 Intake & Output 02/14/20 02/15/20 02/16/20 06:59 06:59 06:59 Intake Total 5200 2570 Balance 5200 2570 Weight 80.7 kg 82.2 kg General appearance: PRESENT: no acute distress Head exam: PRESENT: normocephalic Eye exam: PRESENT: EOMI Mouth exam: PRESENT: dry mucosa Respiratory exam: PRESENT: clear to auscultation mike, unlabored Cardiovascular exam: PRESENT: RRR Extremities exam: ABSENT: pedal edema Neurological exam: PRESENT: awake Psychiatric exam: PRESENT: appropriate affect Results Laboratory Results: 02/14/20 07:39 02/14/20 07:10 02/13/20 02/14/20 02/14/20 13:35 07:10 07:10 WBC 0.5 L* RBC Hgb 7.0 L D Hct MCV MCH MCHC RDW Plt Count Seg Neutrophils % Sodium 126.5 L Potassium 3.3 L Chloride 98 Carbon Dioxide 23 Anion Gap 6 BUN 7 Creatinine 0.40 L Est GFR ( Amer) > 60 Glucose 84 Lactic Acid Calcium 6.3 L* Magnesium 1.8 PTH Intact 346.9 H 02/14/20 02/14/20 07:10 07:39 WBC 1.0 L* RBC 2.76 L Hgb 8.7 L Hct 24.7 L MCV 89 MCH 31.4 MCHC 35.2 RDW 15.9 H Plt Count 167 Seg Neutrophils % 5.2 L Sodium Potassium Chloride Carbon Dioxide Anion Gap BUN Creatinine Est GFR ( Amer) Glucose Lactic Acid 1.2 Calcium Magnesium PTH Intact 02/13/20 07:35 Troponin I < 0.012 NT-Pro-B Natriuret Pep 1040 H Impressions: Acute Abdomen Series 02/13/20 07:44 IMPRESSION: Diffuse left-sided infiltrate most marked in the left upper lobe consistent with pneumonia. Gas pattern is nonspecific. Assessment & Plan - Diagnosis (1) Cellulitis and abscess of foot Is this a current diagnosis for this admission?: Yes Plan: On appropriate antibiotics. (2) Nausea and vomiting Is this a current diagnosis for this admission?: Yes Plan: Improving. (3) Neoplasm of hilus of left lung Is this a current diagnosis for this admission?: Yes Plan: With neutropenia and anemia after chemo. Await ANC >1 before changing to PO ABX. No indication for blood transfusion at this time. All cultures are NGTD. - Time Time Spent with patient: Less than 15 minutes
[2020-02-15] MEDS: HYDROMORPHONE HCL INJ/PF 2 MG/ML AMPULE IV PRN ×3 (08:59→18:07)
[2020-02-15] MEDS: CALCIUM CARBONATE 600 MG TABLET PO SCH ×2 (09:00→18:07)
[2020-02-15] MEDS: PAROXETINE HCL 20 MG TABLET PO SCH (09:00)
[2020-02-15] MEDS: CHOLECALCIFEROL (D3) 1,000 UNIT (25 MCG) TABLET PO SCH (09:00)
[2020-02-15] MEDS: PANTOT AC/MIN OIL/PET HY-PHL OINT 50 GM TOP SCH ×2 (09:00→18:08)
[2020-02-15] MEDS: POTASSIUM CHLORIDE 10 MEQ TABLET.ER PO SCH ×2 (09:06→21:05)
[2020-02-15] MEDS ORDERED: (PENDING PHARMACY ID) (Potassium Chloride [Klor-Con M20] 20 MEQ Tab.Er.Prt) PO SCH (10:00)
[2020-02-15] MEDS: CEFEPIME HCL 2 GM in DEXTROSE 5%-WATER 50 ML IV SCH ×2 (10:31→21:05)
[2020-02-15 11:28] LABS: HEMATOCRIT 27.7 % (37.9-51.0); HEMOGLOBIN 9.8 g/dL (13.5-17.0); MEAN CORPUSCULAR HEMOGLOBIN 31.2 pg (27.0-33.4); MEAN CORPUSCULAR HGB CONC 35.3 g/dL (32.0-36.0); MEAN CORPUSCULAR VOLUME 88 fl (80-97); PLATELET COUNT 187 10^3/uL (150-450); RED BLOOD COUNT 3.13 10^6/uL (4.35-5.55)
--- NOTE | 2020-02-15 11:47 | PDOC DISCHARGE SUMMARY ---
Impression - Admit/DC Date/PCP Admission Date/Primary Care Provider: 02/13/20 10:28 MARILEE FORD MD Discharge Date: 02/16/20 - Discharge Diagnosis (1) Neutropenic sepsis Is this a current diagnosis for this admission?: Yes (2) Pneumonia of left upper lobe due to infectious organism Is this a current diagnosis for this admission?: Yes (3) Leukopenia due to antineoplastic chemotherapy Is this a current diagnosis for this admission?: Yes (4) Paroxysmal atrial fibrillation with rapid ventricular response Is this a current diagnosis for this admission?: Yes (5) Hypocalcemia Is this a current diagnosis for this admission?: Yes (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 Is this a current diagnosis for this admission?: Yes (7) Hyperlipidemia Is this a current diagnosis for this admission?: Yes (8) Coronary artery disease Is this a current diagnosis for this admission?: Yes (9) Hypertension Is this a current diagnosis for this admission?: Yes (10) COPD (chronic obstructive pulmonary disease) Is this a current diagnosis for this admission?: Yes (11) Chronic respiratory failure with hypoxia Is this a current diagnosis for this admission?: Yes - Assessment Summary: Neutropenic sepsis Pneumonia Leukopenia due to antineoplastic chemotherapy Paroxysmal atrial fibrillation with rapid ventricular response Hypocalcemia Neoplasm of hilus of left lung Hyperlipidemia Coronary artery disease Hypertension Chronic obstructive pulmonary disease Chronic respiratory failure with hypoxia 02/13/2020 Neutropenic sepsis-vancomycin and cefepime. Neutropenic precautions. Currently left-sided pneumonia appears to be the focus. Blood cultures are pending. Patient receiving fluids. He did receive multiple liters in the emergency department. UA did not suggest infection. Pneumonia-antibiotics as above. The patient is on 2 L nasal cannula at home. Continue same. Leukopenia-absolute neutrophil count is only 200. Total white blood cell count is only 600. Oncology consult placed. Neutropenic precautions as above. Monitor white blood cell count. Paroxysmal atrial fibrillation with rapid ventricular response-the patient received IV diltiazem. Will reintroduce diltiazem at 60 mg every 6 as this can be adjusted more easily than long-acting. Will likely go back on his diltiazem 120 mg twice daily at some point. Will monitor on telemetry. Hypocalcemia may have induced the arrhythmia. Hypocalcemia-1 amp of calcium gluconate given. Recheck calcium. Supplement based on results. Neoplasm hilum left lung-chemotherapy on hold at this point. Oncology will see the patient during this admission. Hyperlipidemia-no statin therapy at this point. Adverse side effects include myalgia. Coronary artery disease-history of multiple stents. Continue aspirin. Await final medication reconciliation to continue other medications vital signs allowing. Hypertension-currently with low blood pressure. Holding medications until blood pressure improves. COPD-no inhalers at home. DuoNebs as needed. No steroids at this point. Chronic hypoxic respiratory failure-patient on 2 L nasal cannula. Continue same. Trying keep oxygen saturations between 90 and 94%. 02/14/2020 White blood cell count is up to 1.0. Continue antibiotic therapy. Hemoglobin is up to 8.7. Continue to monitor. Still with calcium of only 6.3. Additional calcium gluconate and oral calcium Atrial fibrillation-continue oral diltiazem and consolidate in to long-acting Cardizem Hypoxic respiratory failure-continue oxygen supplement. 02/15/2020 Unfortunately the laboratory studies did not meet the goals for Dr. Sánchez's discharged from the hematology standpoint. He also has significant electrolyte abnormalities with a lower sodium than previously. We will administer electrolyte supplements and in addition albumin. Hopefully the patient will be able to discharge home tomorrow for the holiday. 02/16/2020 Patient anxious for home. I believe it is safe at this time. Instructions were given for ongoing calcium and vitamin D supplementation as well as parameters for diltiazem. He is heart rate seems to be settling and so the diltiazem dose will likely need to be adjusted. He will hold his diltiazem if his systolic blood pressure is less than 100 or his pulse is less than 60. He does have a blood pressure cuff at home according to him and his . I did review the instructions on discharge with his as well. He will follow up with Dr. Ford for the lung cancer. I also asked him to follow-up with Dr. Howell this coming week as well. - Additional Information Resuscitation Status: Full Code Discharge Diet: Cardiac Discharge Activity: Activity As Tolerated Referrals: MARILEE FORD MD [Primary Care Provider] - 02/27/20 9:00 am Prescriptions: Cefuroxime Axetil [Ceftin 500 mg Tablet] 1 tab PO BID #16 tablet Diltiazem HCl [Diltiazem 12Hr ER] 120 mg PO Q12 #30 cap.er.12h Potassium Chloride 20 meq PO BID #30 tab.er.prt Home Medications: Alprazolam [Xanax 0.5 mg Tablet] 1 mg PO TID 01/27/20 Fentanyl 75 mcg TOP Q3D 01/27/20 Furosemide [Lasix] 20 mg PO BID 01/27/20 Hydromorphone HCl [Dilaudid] 8 mg PO Q4HP PRN 02/13/20 Paroxetine HCl [Paxil] 10 mg PO DAILY 02/13/20 Potassium Chloride [Klor-Con M20] 20 meq PO DAILY 02/13/20 Calcium Carbonate [Caltrate 600 mg Tablet] 600 mg PO BID tablet 02/15/20 Cefuroxime Axetil [Ceftin 500 mg Tablet] 1 tab PO BID #16 tablet 02/15/20 Cholecalciferol (Vitamin D3) [Vitamin D3 1000 Unit Tablet] 2,000 unit PO DAILY tablet 02/15/20 Diltiazem HCl [Diltiazem 12Hr ER] 120 mg PO Q12 #30 cap.er.12h 02/15/20 Fentanyl [Duragesic 75 Mcg/Hr Transdermal Patch] 1 each TD Q3DAYS patch.td72 02/15/20 Pantot AC/Min Oil/Pet Hy-Phl [Aquaphor W-Lisa Heal Oint 50 gm] 1 applic TOP BID tube 02/15/20 Potassium Chloride 20 meq PO BID #30 tab.er.prt 02/16/20 History of Present Illiness History of Present Illness: AGAPITO MANZO is a 59 year old male with recent diagnosis of left-sided lung cancer. He is currently receiving chemotherapy. He is unable to tell me the specific regimen. He states that he has had a cough for about 24 hours. He has had nausea and vomiting and a dry throat. He denies fever and chills. He has a long complex cardiac history and so the RVR was not totally noticed. When he presented to the emergency department he was in atrial fibrillation with RVR and a rate of 150. He was given a single bolus of IV Cardizem and this slowed his heart rate. It appears that he is on 120 mg twice daily as an outpatient. The malignancy is in the hilar area extending to the left. Evidently diagnosis was made by bronchoscopy at [facility]. He feels quite weak and his white blood cell count was only 600. Absolute neutrophil count was 200. There is a question of a history of heart failure however an echocardiogram in November showed a normal ejection fraction of 60% and no evidence of diastolic heart failure. Chest x-ray suggested left upper lobe airspace disease. The patient will be admitted to the hospitalist service for neutropenic sepsis. IV antibiotics and neutropenic precautions initiated. Awaiting medication reconciliation to resume other medications. Hospital Course Hospital Course: As above Physical Exam Vital Signs: Temp Pulse Resp BP Pulse Ox 98.6 F 81 17 93/51 L 93 02/15/20 10:00 02/15/20 08:10 02/15/20 08:10 02/15/20 08:10 02/15/20 08:10 Intake & Output 02/14/20 02/15/20 02/16/20 06:59 06:59 06:59 Intake Total 5200 2570 250 Balance 5200 2570 250 Weight 80.7 kg 82.2 kg General appearance: PRESENT: no acute distress Respiratory exam: PRESENT: clear to auscultation mike, symmetrical, unlabored. ABSENT: rales, rhonchi, tachypnea, wheezes Cardiovascular exam: PRESENT: bradycardia - Borderline bradycardia, irregular rhythm. ABSENT: tachycardia GI/Abdominal exam: PRESENT: normal bowel sounds, soft. ABSENT: tenderness Neurological exam: PRESENT: alert, awake, oriented to person, oriented to place, oriented to time, oriented to situation, CN II-XII grossly intact Psychiatric exam: ABSENT: agitated, anxious Results Laboratory Results: WBC 1.0 10^3/uL (4.0-10.5) L* 02/14/20 07:39 RBC 2.76 10^6/uL (4.35-5.55) L 02/14/20 07:39 Hgb 8.7 g/dL (13.5-17.0) L 02/14/20 07:39 Hct 24.7 % (37.9-51.0) L 02/14/20 07:39 MCV 89 fl (80-97) 02/14/20 07:39 MCH 31.4 pg (27.0-33.4) 02/14/20 07:39 MCHC 35.2 g/dL (32.0-36.0) 02/14/20 07:39 RDW 15.9 % (11.5-14.0) H 02/14/20 07:39 Plt Count 167 10^3/uL (150-450) 02/14/20 07:39 Lymph % (Auto) 48.8 % (13-45) H 02/14/20 07:39 Terrell % (Auto) 43.3 % (3-13) H 02/14/20 07:39 Eos % (Auto) 1.7 % (0-6) 02/14/20 07:39 Baso % (Auto) 1.0 % (0-2) 02/14/20 07:39 Absolute Neuts (auto) 0.1 10^3/uL (1.7-8.2) L 02/14/20 07:39 Absolute Lymphs (auto) 0.5 10^3/uL (0.5-4.7) 02/14/20 07:39 Absolute Monos (auto) 0.4 10^3/uL (0.1-1.4) 02/14/20 07:39 Absolute Eos (auto) 0.0 10^3/uL (0.0-0.6) 02/14/20 07:39 Absolute Basos (auto) 0.0 10^3/uL (0.0-0.2) 02/14/20 07:39 Total Counted 50 02/13/20 18:26 Seg Neutrophils % 5.2 % (42-78) L 02/14/20 07:39 Seg Neuts % (Manual) 18 % (42-78) L 02/13/20 18:26 Band Neutrophils % 8 % (3-5) H 02/13/20 07:35 Lymphocytes % (Manual) 62 % (13-45) H 02/13/20 18:26 Monocytes % (Manual) 20 % (3-13) H 02/13/20 18:26 Eosinophils % (Manual) 0 % (0-6) 02/13/20 18:26 Basophils % (Manual) 0 % (0-2) 02/13/20 18:26 Metamyelocytes % 4 % (0-1) H 02/13/20 07:35 Myelocytes % 2 % (0) H 02/13/20 07:35 Abs Neuts (Manual) 0.2 10^3/uL (1.7-8.2) L 02/13/20 18:26 Abs Lymphs (Manual) 0.7 10^3/uL (0.5-4.7) 02/13/20 18:26 Abs Monocytes (Manual) 0.2 10^3/uL (0.1-1.4) 02/13/20 18:26 Absolute Eos (Manual) 0.0 10^3/uL (0.0-0.6) 02/13/20 18:26 Abs Basophils (Manual) 0.0 10^3/uL (0.0-0.2) 02/13/20 18:26 Dohle Bodies PRESENT 02/13/20 07:35 Clumped Platelets PRESENT 02/14/20 07:39 Platelet Comment ADEQUATE 02/14/20 07:39 Polychromasia SLIGHT 02/14/20 07:39 Poikilocytosis SLIGHT 02/14/20 07:39 Anisocytosis SLIGHT 02/14/20 07:39 Microcytosis 1+ 02/13/20 13:35 Macrocytosis 1+ 02/13/20 07:35 Ovalocytes SLIGHT 02/13/20 18:26 Acanthocytes (Spur) SLIGHT 02/14/20 07:39 RBC Morph Comment 02/14/20 07:39 PT 14.7 SEC (11.4-15.4) 02/13/20 07:35 INR 1.13 02/13/20 07:35 VBG pH 7.45 (7.30-7.42) H 02/13/20 07:35 VBG pCO2 30.3 mmHg (35-63) L 02/13/20 07:35 VBG HCO3 20.6 mmol/L (20-32) 02/13/20 07:35 VBG Base Excess -2.0 mmol/L 02/13/20 07:35 Sodium 126.5 mmol/L (137-145) L 02/14/20 07:10 Potassium 3.3 mmol/L (3.6-5.0) L 02/14/20 07:10 Chloride 98 mmol/L (98-107) 02/14/20 07:10 Carbon Dioxide 23 mmol/L (22-30) 02/14/20 07:10 Anion Gap 6 (5-19) 02/14/20 07:10 BUN 7 mg/dL (7-20) 02/14/20 07:10 Creatinine 0.40 mg/dL (0.52-1.25) L 02/14/20 07:10 Est GFR ( Amer) > 60 (>60) 02/14/20 07:10 Est GFR (MDRD) Non-Af > 60 (>60) 02/14/20 07:10 Glucose 84 mg/dL (75-110) 02/14/20 07:10 POC Glucose 84 mg/dL (70-110) 02/14/20 08:02 Lactic Acid 1.2 mmol/L (0.7-2.1) 02/14/20 07:10 Calcium 6.3 mg/dL (8.4-10.2) L* 02/14/20 07:10 Magnesium 1.8 mg/dL (1.6-2.3) 02/14/20 07:10 Total Bilirubin 1.2 mg/dL (0.2-1.3) 02/13/20 07:35 Direct Bilirubin 0.5 mg/dL (0.0-0.4) H 02/13/20 07:35 Neonat Total Bilirubin Not Reportable 02/13/20 07:35 Neonat Direct Bilirubin Not Reportable 02/13/20 07:35 Neonat Indirect Bili Not Reportable 02/13/20 07:35 AST 27 U/L (17-59) 02/13/20 07:35 ALT 19 U/L (<50) 02/13/20 07:35 Alkaline Phosphatase 93 U/L (38-126) 02/13/20 07:35 Troponin I < 0.012 ng/mL 02/13/20 07:35 NT-Pro-B Natriuret Pep 1040 pg/mL (<125) H 02/13/20 07:35 Total Protein 6.0 g/dL (6.3-8.2) L 02/13/20 07:35 Albumin 3.2 g/dL (3.5-5.0) L 02/13/20 07:35 Lipase 86.4 U/L (23-300) 02/13/20 07:35 Vitamin D 25-Hydroxy < 12.8 ng/mL (14.7-68.3) L 02/14/20 07:10 PTH Intact 346.9 pg/mL (10.0-65.0) H 02/14/20 07:10 Time Trough Drawn 0710 02/14/20 07:10 Vancomycin Trough 13.9 ug/mL (5.0-20.0) 02/14/20 07:10 Slides for Path Review PATHOLOGIST REVIEWED 02/13/20 07:35 Blood Type A POSITIVE 02/13/20 17:02 Antibody Screen NEGATIVE 02/13/20 17:02 Crossmatch See Detail 02/13/20 17:02 02/13/20 07:35 Troponin I < 0.012 NT-Pro-B Natriuret Pep 1040 H Impressions: Acute Abdomen Series 02/13/20 07:44 IMPRESSION: Diffuse left-sided infiltrate most marked in the left upper lobe consistent with pneumonia. Gas pattern is nonspecific. Plan Health Concerns: Labile pulse and blood pressure Plan of Treatment: Parameters for diltiazem. The patient's shares need to have a blood pressure cuff at home. White blood cell count has been improving. Follow-up with Dr. Roe and Dr. Ford. Electrolyte abnormalities will take longer to normalize. Goals: Successful completion of treatment for his lung cancer and maintaining control of his atrial fibrillation and blood pressure. Also successful resolution of the cellulitis on his legs. Time Spent: Greater than 30 Minutes Stroke Is this a Stroke Patient?: No Acute Heart Failure Is this a Heart Failure Patient?: No
[2020-02-15 11:49] LABS: ALBUMIN 2.3 g/dL (3.5-5.0); ANION GAP 9 (5-19); BLOOD UREA NITROGEN 9 mg/dL (7-20); CARBON DIOXIDE 22 mmol/L (22-30); CHLORIDE 91 mmol/L (98-107); GLUCOSE 106 mg/dL (75-110); POTASSIUM 3.3 mmol/L (3.6-5.0)
[2020-02-15 12:01] LABS: CALCIUM 6.4 mg/dL (8.4-10.2)
[2020-02-15 12:29] LABS: ABSOLUTE MONOCYTES # (MANUAL) 1.1 10^3/uL (0.1-1.4); BAND NEUTROPHILS % (MANUAL) 9 % (3-5); BASOPHILS % (MANUAL) 0 % (0-2); EOSINOPHILS % (MANUAL) 4 % (0-6); LYMPHOCYTES % (MANUAL) 38 % (13-45); NUCLEATED RED BLOOD CELLS 8 /100 WBC (0); SEGMENTED NEUTROPHILS % (MAN) 5 % (42-78); TOTAL CELLS COUNTED 100
[2020-02-15 12:30] LABS: ANISOCYTOSIS 1+; PLATELET CLUMPS PRESENT; PLATELET COMMENT ADEQUATE
[2020-02-15 12:47] LABS: MONOCYTES % (MANUAL) 40 % (3-13); WHITE BLOOD COUNT 2.7 10^3/uL (4.0-10.5)
[2020-02-15 12:48] LABS: METAMYELOCYTES % (MANUAL) 3 % (0-1); MYELOCYTES % (MANUAL) 1 % (0)
[2020-02-15 16:22] LABS: ALBUMIN 2.1 g/dL (3.5-5.0); ANION GAP 6 (5-19); BLOOD UREA NITROGEN 10 mg/dL (7-20); CARBON DIOXIDE 25 mmol/L (22-30); CHLORIDE 91 mmol/L (98-107); GLUCOSE 101 mg/dL (75-110); PHOSPHORUS 1.3 mg/dL (2.5-4.5); POTASSIUM 3.2 mmol/L (3.6-5.0)
[2020-02-15 16:38] LABS: CALCIUM 6.2 mg/dL (8.4-10.2)
[2020-02-15] MEDS: CALCIUM GLUC IN NACL, ISO-OSM 1 GM/50 ML RTUPB IV SCH ×2 (18:07→19:06)
--- NOTE | 2020-02-15 19:08 | PDOC PROGRESS REPORT ---
Subjective Date:: 02/15/20 Subjective:: The plan was for discharge however the patient's absolute neutrophil count was l ess than 1000 which was the goal that Dr. Sánchez sent. In addition he still has multiple electrolyte abnormalities. Reason For Visit: NEUTROPENIC SEPSIS,ATRIAL FIBRILLATION RVR, Physical Exam Vital Signs: Temp Pulse Resp BP Pulse Ox 98.0 F 93 18 121/64 96 02/15/20 15:52 02/15/20 16:45 02/15/20 16:45 02/15/20 15:52 02/15/20 16:45 Intake & Output 02/14/20 02/15/20 02/16/20 06:59 06:59 06:59 Intake Total 5200 2570 740 Balance 5200 2570 740 Weight 80.7 kg 82.2 kg General appearance: PRESENT: no acute distress, cooperative, well-developed Head exam: PRESENT: atraumatic, normocephalic Ear exam: PRESENT: normal external ear exam. ABSENT: bleeding, drainage Respiratory exam: PRESENT: clear to auscultation mike, symmetrical, unlabored. ABSENT: rales, rhonchi, tachypnea, wheezes Cardiovascular exam: PRESENT: RRR, +S1, +S2. ABSENT: bradycardia, diastolic murmur, irregular rhythm, systolic murmur, tachycardia GI/Abdominal exam: PRESENT: normal bowel sounds, soft. ABSENT: tenderness Rectal exam: PRESENT: deferred Gentrourinary exam: ABSENT: indwelling catheter Results Laboratory Results: 02/15/20 11:10 02/15/20 15:29 02/15/20 02/15/20 02/15/20 11:10 11:10 15:29 WBC 2.7 L D RBC 3.13 L Hgb 9.8 L Hct 27.7 L MCV 88 MCH 31.2 MCHC 35.3 RDW 16.0 H Plt Count 187 Seg Neutrophils % Not Reportable Sodium 122.3 L 122.3 L Potassium 3.3 L 3.2 L Chloride 91 L 91 L Carbon Dioxide 22 25 Anion Gap 9 6 BUN 9 10 Creatinine 0.60 0.67 Est GFR ( Amer) > 60 > 60 Glucose 106 101 Calcium 6.4 L* 6.2 L* Ionized Calcium [place] Phosphorus 1.3 L Magnesium 1.8 1.8 Albumin 2.3 L 2.1 L 02/15/20 15:29 WBC RBC Hgb Hct MCV MCH MCHC RDW Plt Count Seg Neutrophils % Sodium Potassium Chloride Carbon Dioxide Anion Gap BUN Creatinine Est GFR ( Amer) Glucose Calcium Ionized Calcium [place] 0.91 L Phosphorus Magnesium Albumin 02/13/20 07:35 Troponin I < 0.012 NT-Pro-B Natriuret Pep 1040 H Impressions: Acute Abdomen Series 02/13/20 07:44 IMPRESSION: Diffuse left-sided infiltrate most marked in the left upper lobe consistent with pneumonia. Gas pattern is nonspecific. Assessment and Plan - Diagnosis (1) Neutropenic sepsis Is this a current diagnosis for this admission?: Yes (2) Pneumonia of left upper lobe due to infectious organism Is this a current diagnosis for this admission?: Yes (3) Leukopenia due to antineoplastic chemotherapy Is this a current diagnosis for this admission?: Yes (4) Paroxysmal atrial fibrillation with rapid ventricular response Is this a current diagnosis for this admission?: Yes (5) Hypocalcemia Is this a current diagnosis for this admission?: Yes (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 Is this a current diagnosis for this admission?: Yes (7) Hyperlipidemia Qualifiers: Hyperlipidemia type: pure hypercholesterolemia Qualified Code(s): E78.00 - Pure hypercholesterolemia, unspecified; E78.0 - Pure hypercholesterolemia Is this a current diagnosis for this admission?: Yes (8) Coronary artery disease Qualifiers: Coronary Disease-Associated Artery/Lesion type: [place] artery [place] vs. transplanted heart: [place] heart Associated angina: without angina Qualified Code(s): I25.10 - Atherosclerotic heart disease of [place] coronary artery without angina pectoris Is this a current diagnosis for this admission?: Yes (9) Hypertension Qualifiers: Hypertension type: essential hypertension Qualified Code(s): I10 - Essential (primary) hypertension Is this a current diagnosis for this admission?: Yes (10) COPD (chronic obstructive pulmonary disease) Qualifiers: COPD type: unspecified COPD Qualified Code(s): J44.9 - Chronic obstructive pulmonary disease, unspecified Is this a current diagnosis for this admission?: Yes (11) Chronic respiratory failure with hypoxia Is this a current diagnosis for this admission?: Yes - Plan Summary Summary: Neutropenic sepsis Pneumonia Leukopenia due to antineoplastic chemotherapy Paroxysmal atrial fibrillation with rapid ventricular response Hypocalcemia Neoplasm of hilus of left lung Hyperlipidemia Coronary artery disease Hypertension Chronic obstructive pulmonary disease Chronic respiratory failure with hypoxia 02/13/2020 Neutropenic sepsis-vancomycin and cefepime. Neutropenic precautions. Currently left-sided pneumonia appears to be the focus. Blood cultures are pending. Patient receiving fluids. He did receive multiple liters in the emergency department. UA did not suggest infection. Pneumonia-antibiotics as above. The patient is on 2 L nasal cannula at home. Continue same. Leukopenia-absolute neutrophil count is only 200. Total white blood cell count is only 600. Oncology consult placed. Neutropenic precautions as above. Monitor white blood cell count. Paroxysmal atrial fibrillation with rapid ventricular response-the patient received IV diltiazem. Will reintroduce diltiazem at 60 mg every 6 as this can be adjusted more easily than long-acting. Will likely go back on his diltiazem 120 mg twice daily at some point. Will monitor on telemetry. Hypocalcemia may have induced the arrhythmia. Hypocalcemia-1 amp of calcium gluconate given. Recheck calcium. Supplement based on results. Neoplasm hilum left lung-chemotherapy on hold at this point. Oncology will see the patient during this admission. Hyperlipidemia-no statin therapy at this point. Adverse side effects include myalgia. Coronary artery disease-history of multiple stents. Continue aspirin. Await final medication reconciliation to continue other medications vital signs allowing. Hypertension-currently with low blood pressure. Holding medications until blood pressure improves. COPD-no inhalers at home. DuoNebs as needed. No steroids at this point. Chronic hypoxic respiratory failure-patient on 2 L nasal cannula. Continue same. Trying keep oxygen saturations between 90 and 94%. 02/14/2020 White blood cell count is up to 1.0. Continue antibiotic therapy. Hemoglobin is up to 8.7. Continue to monitor. Still with calcium of only 6.3. Additional calcium gluconate and oral calcium Atrial fibrillation-continue oral diltiazem and consolidate in to long-acting Cardizem Hypoxic respiratory failure-continue oxygen supplement. 02/15/2020 Unfortunately the laboratory studies did not meet the goals for Dr. Sánchez's discharged from the hematology standpoint. He also has significant electrolyte abnormalities with a lower sodium than previously. We will administer electrolyte supplements and in addition albumin. Hopefully the patient will be able to discharge home tomorrow for the holiday. - Time Time Spent with patient: 15-24 minutes Medications reviewed and adjusted accordingly: Yes Anticipated Discharge Disposition: Home, Self Care Anticipated Discharge Timeframe: within 48 hours
[2020-02-15] MEDS: ALBUMIN HUMAN 12.5 GM/50 ML RTUINJ IV SCH ×2 (21:04→22:09)
[2020-02-15] MEDS: ASPIRIN 81 MG TABLET, CHEWABLE PO SCH (21:06)
[2020-02-15] MEDS: SODIUM CHLORIDE 1 GM TABLET PO SCH (21:13)
[2020-02-16] MEDS: DILTIAZEM HCL 60 MG TABLET PO SCH ×2 (00:15→05:15)
[2020-02-16] MEDS: ALPRAZOLAM 0.5 MG TABLET PO SCH (05:00)
[2020-02-16] MEDS: PANTOPRAZOLE SODIUM 40 MG TABLET.DR PO SCH (05:01)
[2020-02-16] MEDS: POTASSIUM CHLORIDE 10 MEQ TABLET.ER PO SCH ×2 (05:01→09:10)
[2020-02-16 06:17] LABS: ALBUMIN 2.1 g/dL (3.5-5.0); BLOOD UREA NITROGEN 9 mg/dL (7-20); CARBON DIOXIDE 27 mmol/L (22-30); CHLORIDE 93 mmol/L (98-107); GLUCOSE 98 mg/dL (75-110); PHOSPHORUS 1.3 mg/dL (2.5-4.5); POTASSIUM 3.5 mmol/L (3.6-5.0)
[2020-02-16 06:23] LABS: ANION GAP 5 (5-19)
[2020-02-16 06:35] LABS: CALCIUM 6.7 mg/dL (8.4-10.2)
[2020-02-16] MEDS: VANCOMYCIN HCL 1,250 MG in DEXTROSE 5%-WATER 250 ML IV SCH (07:33)
[2020-02-16 08:49] VITALS: BP 109/60
[2020-02-16] MEDS: FENTANYL 75 MCG/HR PATCH.TD72 TD SCH (09:09)
[2020-02-16] MEDS: CALCIUM CARBONATE 600 MG TABLET PO SCH (09:10)
[2020-02-16] MEDS: PAROXETINE HCL 20 MG TABLET PO SCH (09:11)
[2020-02-16] MEDS: CHOLECALCIFEROL (D3) 1,000 UNIT (25 MCG) TABLET PO SCH (09:11)
[2020-02-16] MEDS: SODIUM CHLORIDE 1 GM TABLET PO SCH (09:11)
[2020-02-16] MEDS: CEFEPIME HCL 2 GM in DEXTROSE 5%-WATER 50 ML IV SCH (09:13)
[2020-02-16] MEDS: PANTOT AC/MIN OIL/PET HY-PHL OINT 50 GM TOP SCH (09:43)
[2020-02-17 11:22] LABS: PATH REVIEW PATHOLOGIST REVIEWED
== END 2020-02-16 09:59 | disposition home or self-care (01) | DRG 871 ==
LOC: ER 07:13 → EH 10:28 → 5 15:13
PROVIDERS: ADMIT Hospitalist; ATTEND Hospitalist
PROC: 30233N1 Transfusion of Nonautologous Red Blood Cells into Peripheral Vein, Percutaneous Approach (ICD-10-PCS; principal; 2020-02-13)
DX: A41.9 Sepsis, unspecified organism (principal); J18.9 Pneumonia, unspecified organism; C34.02 Malignant neoplasm of left main bronchus; J96.11 Chronic respiratory failure with hypoxia; C79.51 Secondary malignant neoplasm of bone; L02.612 Cutaneous abscess of left foot; L02.611 Cutaneous abscess of right foot; L03.116 Cellulitis of left lower limb; L03.115 Cellulitis of right lower limb; D70.8 Other neutropenia; D70.1 Agranulocytosis secondary to cancer chemotherapy; T45.1X5A Adverse effect of antineoplastic and immunosuppressive drugs, initial encounter; I48.0 Paroxysmal atrial fibrillation; E83.51 Hypocalcemia; E78.5 Hyperlipidemia, unspecified; I25.10 Atherosclerotic heart disease of native coronary artery without angina pectoris; J44.9 Chronic obstructive pulmonary disease, unspecified; E78.00 Pure hypercholesterolemia, unspecified; I10 Essential (primary) hypertension; K21.9 Gastro-esophageal reflux disease without esophagitis; F32.9 Major depressive disorder, single episode, unspecified; I25.2 Old myocardial infarction; Z95.5 Presence of coronary angioplasty implant and graft; Z79.899 Other long term (current) drug therapy; Z87.891 Personal history of nicotine dependence; Z80.9 Family history of malignant neoplasm, unspecified; Z82.49 Family history of ischemic heart disease and other diseases of the circulatory system; Z88.8 Allergy status to other drugs, medicaments and biological substances
CPT/HCPCS: 36415; 36430; 74022; 80048; 80053; 80069; 80202; 82040; 82306; 82330; 82803; 82962; 83605; 83690; 83735; 83880; 83970; 84484; 85025; 85610; 86850; 86900; 86901; 86920; 87040; 93005; 93010; 96361; 96365; 96368; 96375; 99285; J0610; J0692; J1170; J1642; J2405; J2550; J3370; J3480; J3490; J7030; J7060; J7120; P9016; P9047

== ENCOUNTER 2020-02-17 09:28 | Emergency (ER) | payer MEDICAID ==
[2020-02-17] MEDS ORDERED: CALCIUM GLUCONATE 1000 MG/10 ML INJ IV ONE (10:22)
[2020-02-17] MEDS ORDERED: SODIUM BICARBONATE 8.4% INJ 50 MEQ/50 ML DISP.SYRIN ONE (10:22)
[2020-02-17] MEDS ORDERED: EPINEPHRINE INJ 1 MG/10 ML DISP.SYRIN ONE (10:22)
--- NOTE | 2020-02-17 10:59 | ER Document Report ---
Entered by SAMI STEINER SCRIBE 02/17/20 0932 Acting as scribe for:ROSA MURRAY MD ED General - General Chief Complaint: Cardiac Arrest Stated Complaint: UNRESPONSIVE Primary Care Provider: MARILEE VILLAGRAN MD [Primary Care Provider] - Follow up as needed Mode of Arrival: Medic Information source: Emergency Med Personnel, [facility] Records Cannot obtain history due to: Intubated, Unstable vital signs Notes: This 59 year old male patient with stage IV lung cancer and recent pneumonia discharged from this facility yesterday presents today in cardiac arrest. EMS was called to the scene for respiratory distress and found the patient saturating in the 70s on two liters oxygen with a respiratory rate of around 40. EMS put the patient on CPAP and he quickly decompensated resulting in cardiopulmonary arrest. In total prior to arrival EMS administered 9 mg of epinephrine and 1 amp of sodium bicarbonate. EMS did CPR approximately 35 mi nutes prior to arriving at the hospital. On arrival here compressions were in progress and the patient was being bagged. Spouse has arrived and additional history was obtained. Spouse states the deidra ent was complaining of being short of breath earlier this morning but he refused to let her give him a breathing treatment. He also refused to let her check his pulse. TRAVEL OUTSIDE OF THE [place] IN LAST 30 DAYS: No - Related Data Allergies/Adverse Reactions: atorvastatin [From Lipitor] Allergy (Verified 11/18/19 15:41) "muslce and joint pain" Past Medical History - General Information source: Emergency Med Personnel, [facility] Records Cannot obtain history due to: Intubated, Unstable vital signs - Social History Smoking Status: Smoker,Current Status Unk Family History: CAD, Malignancy - Past Medical History Cardiac Medical History: Reports: Hx Atrial Fibrillation, Hx Congestive Heart Failure, Hx Coronary Artery Disease, Hx Heart Attack - x5, Hx Hypercholesterolemia, Hx Hypertension - hx of, Hx Heart Murmur Pulmonary Medical History: Reports: Hx Asthma, Hx COPD Neurological Medical History: Reports: Hx Cerebrovascular Accident - "during surgery" pt states "no residual" Malignancy Medical History: Reports Hx Lung Cancer GI Medical History: Reports: Hx Diverticulitis, Hx Gastroesophageal Reflux Disease Psychiatric Medical History: Reports: Hx Depression Past Surgical History: Reports: Hx Bowel Surgery, Hx Cardiac Catheterization, Hx Cardiac Surgery - PTCA 07/2012, Hx Coronary Stent - x4, Hx Orthopedic Surgery - Lumbar surgery x2, Other - Port-A-Cath placement left chest - Immunizations Immunizations up to date: Yes Hx Diphtheria, Pertussis, Tetanus Vaccination: Yes Review of Systems - Review of Systems -: Yes ROS unobtainable due to patient's medical condition Physical Exam - General General appearance: Unresponsive - HEENT Head: Normocephalic, Atraumatic Pupils: Dilated, Fixed - Respiratory Respiratory status: Other - Being manually ventilated with bag valve mask - Cardiovascular Rhythm: Other - Asystole on cardiac rehabilitation specialist, no heart tones heard - Abdominal Inspection: Normal Distension: No distension - Neurological Neuro grossly intact: No Sallie Coma Scale Eye Opening: None Sallie Coma Scale Verbal: None Sallie Coma Scale Motor: None [place] Coma Scale Total: 3 - Skin Skin Temperature: Cool Skin Moisture: Diaphoretic Skin Color: Cyanotic Discharge - Discharge Clinical Impression: Cardiopulmonary arrest Disposition: Referrals: MARILEE VILLAGRAN MD [Primary Care Provider] - Follow up as needed I personally performed the services described in the documentation, reviewed and edited the documentation which was dictated to the scribe in my presence, and it accurately records my words and actions.
== END 2020-02-17 12:47 | disposition expired ==
LOC: ER 09:28
DX: I46.9 Cardiac arrest, cause unspecified (principal); J18.9 Pneumonia, unspecified organism; C34.90 Malignant neoplasm of unspecified part of unspecified bronchus or lung; Z88.8 Allergy status to other drugs, medicaments and biological substances; F17.200 Nicotine dependence, unspecified, uncomplicated; J44.9 Chronic obstructive pulmonary disease, unspecified; I10 Essential (primary) hypertension
CPT/HCPCS: 99283; J0610; J0171; J3490